=== PATIENT | female | born 1990 | race Hispanic/Latino ===

== ENCOUNTER 2021-01-17 13:00 | Inpatient (IN) | payer BC ==
[~2021-01-17] VITALS: Ht 157.5 cm; Wt 90.4 kg
[2021-01-17 13:54] LABS: BASOPHILS % 0.1 % (0.0-1.0); HEMATOCRIT 41.3 % (34.2-44.1); HEMOGLOBIN 13.8 g/dL (12.0-16.0); LYMPHOCYTES # (AUTO) 1.1 (1.0-3.2); LYMPHOCYTES % 14.1 % (18.0-39.1); MEAN CORPUSCULAR HEMOGLOBIN 30.3 pg (28-32); MEAN CORPUSCULAR HGB CONC 33.4 g/dL (31-35); MEAN CORPUSCULAR VOLUME 90.8 fL (81-99); MONOCYTES # (AUTO) 0.8 (0.2-0.8); MONOCYTES % 10.5 % (4.4-11.3); NEUTROPHILS # (AUTO) 5.6 (2.1-6.9); NEUTROPHILS % 74.8 % (38.7-80.0); PLATELET COUNT 287 x10e3/uL (140-360); RED BLOOD COUNT 4.55 x10e6/uL (3.6-5.1); RED CELL DISTRIBUTION WIDTH 12.3 % (11.7-14.4)
[2021-01-17] MEDS ORDERED: KETOROLAC TROMETHAMINE 30 MG/ML VIAL IV STA (13:54)
[2021-01-17] MEDS ORDERED: DEXAMETHASONE SOD PHOS 10 MG/1 ML VIAL IV ONE (14:00)
[2021-01-17] MEDS ORDERED: ONDANSETRON HCL INJ 2MG/ML 2ML 2 MG/ML VIAL IV STA (14:04)
[2021-01-17 14:13] LABS: ALBUMIN 3.6 g/dL (3.5-5.0); ALBUMIN/GLOBULIN RATIO 0.9 (0.8-2.0); ANION GAP 14.8 mmol/L (8-16); CALCIUM 9.4 mg/dL (8.4-10.2); CREATININE, SERUM 0.75 mg/dL (0.57-1.11); POTASSIUM 3.8 mmol/L (3.5-5.1)
[2021-01-17 17:13] VITALS: BP 99/64
[2021-01-17 17:21] VITALS: BP 99/64
[2021-01-17 17:26] VITALS: BP 99/64
[2021-01-17] MEDS: ASCORBIC ACID 500 MG TAB PO SCH (17:53)
[2021-01-17] MEDS: ENOXAPARIN SOD INJ 40 MG/0.4 ML SYR SC SCH (17:53)
[2021-01-17] MEDS ORDERED: REMDESIVIR 200MG 200 MG in SODIUM CHLORIDE 0.9% 100 ML 100 ML IV ONE (18:00)
[2021-01-17] MEDS ORDERED: SODIUM CHLORIDE 0.9% 250ML 250 ML ONE (18:00)
[2021-01-17 20:00] VITALS: BP 95/63
[2021-01-17] MEDS ORDERED: REMDESIVIR 200MG 200 MG IV ONE (20:00)
[2021-01-17] MEDS: GUAIFENESIN/CODEINE 10 ML CUP PO PRN (23:27)
[2021-01-18] VITALS (12 sets, daily range): BP systolic 93–124; BP diastolic 57–77
[2021-01-18] MEDS: ZINC SULFATE 220 MG CAP PO SCH (08:31)
[2021-01-18] MEDS: ASCORBIC ACID 500 MG TAB PO SCH ×2 (08:31→16:13)
[2021-01-18] MEDS: LORAZEPAM INJ 2 MG/ML VIAL IV PRN (12:20)
[2021-01-18] MEDS: REMDESIVIR 100MG 100 MG in SODIUM CHLORIDE 0.9% 100 ML 100 ML IV SCH (13:55)
[2021-01-18] MEDS: DEXAMETHASONE SOD PHOS 10 MG/1 ML VIAL IV SCH (13:55)
[2021-01-18] MEDS ORDERED: SODIUM CHLORIDE 0.9% 250ML 250 ML ONE (15:41)
[2021-01-18] MEDS: ENOXAPARIN SOD INJ 40 MG/0.4 ML SYR SC SCH (16:14)
[2021-01-18] MEDS: ACETAMINOPHEN 325 MG TAB PO PRN (17:09)
[2021-01-19] VITALS (24 sets, daily range): BP systolic 80–113; BP diastolic 54–77
[2021-01-19 05:27] LABS: BASOPHILS % 0.1 % (0.0-1.0); HEMOGLOBIN 12.8 g/dL (12.0-16.0); LYMPHOCYTES # (AUTO) 1.5 (1.0-3.2); LYMPHOCYTES % 19.3 % (18.0-39.1); MEAN CORPUSCULAR HEMOGLOBIN 30.8 pg (28-32); MEAN CORPUSCULAR HGB CONC 33.7 g/dL (31-35); MEAN CORPUSCULAR VOLUME 91.3 fL (81-99); MONOCYTES # (AUTO) 0.9 (0.2-0.8); MONOCYTES % 11.5 % (4.4-11.3); NEUTROPHILS # (AUTO) 5.4 (2.1-6.9); NEUTROPHILS % 68.7 % (38.7-80.0); PLATELET COUNT 356 x10e3/uL (140-360); RED BLOOD COUNT 4.16 x10e6/uL (3.6-5.1); RED CELL DISTRIBUTION WIDTH 12.3 % (11.7-14.4)
[2021-01-19 05:40] LABS: ALBUMIN/GLOBULIN RATIO 0.8 (0.8-2.0); ANION GAP 13.8 mmol/L (8-16); CALCIUM 8.6 mg/dL (8.4-10.2); CREATININE, SERUM 0.68 mg/dL (0.57-1.11); POTASSIUM 3.8 mmol/L (3.5-5.1)
[2021-01-19] MEDS: ASCORBIC ACID 500 MG TAB PO SCH ×2 (08:30→16:31)
[2021-01-19] MEDS: ZINC SULFATE 220 MG CAP PO SCH (08:30)
[2021-01-19] MEDS: DEXAMETHASONE SOD PHOS 10 MG/1 ML VIAL IV SCH (08:30)
[2021-01-19] MEDS: LORAZEPAM INJ 2 MG/ML VIAL IV PRN (08:30)
[2021-01-19] MEDS: GUAIFENESIN/CODEINE 10 ML CUP PO PRN ×2 (08:51→16:31)
[2021-01-19] MEDS ORDERED: GUAIFENESIN/CODEINE 10 ML CUP PO PRN (09:00)
[2021-01-19] MEDS: REMDESIVIR 100MG 100 MG in SODIUM CHLORIDE 0.9% 100 ML 100 ML IV SCH (14:58)
[2021-01-19] MEDS: ENOXAPARIN SOD INJ 40 MG/0.4 ML SYR SC SCH (16:31)
[2021-01-20] VITALS (25 sets, daily range): BP systolic 104–120; BP diastolic 56–89
[2021-01-20] MEDS: GUAIFENESIN/CODEINE 10 ML CUP PO PRN ×2 (00:27→23:21)
[2021-01-20 04:36] LABS: BASOPHILS % 0.1 % (0.0-1.0); HEMATOCRIT 39.1 % (34.2-44.1); HEMOGLOBIN 13.1 g/dL (12.0-16.0); LYMPHOCYTES # (AUTO) 1.6 (1.0-3.2); LYMPHOCYTES % 18.4 % (18.0-39.1); MEAN CORPUSCULAR HEMOGLOBIN 30.6 pg (28-32); MEAN CORPUSCULAR HGB CONC 33.5 g/dL (31-35); MEAN CORPUSCULAR VOLUME 91.4 fL (81-99); MONOCYTES # (AUTO) 1.2 (0.2-0.8); MONOCYTES % 13.8 % (4.4-11.3); NEUTROPHILS # (AUTO) 5.9 (2.1-6.9); NEUTROPHILS % 67.1 % (38.7-80.0); PLATELET COUNT 418 x10e3/uL (140-360); RED BLOOD COUNT 4.28 x10e6/uL (3.6-5.1); RED CELL DISTRIBUTION WIDTH 12.1 % (11.7-14.4)
[2021-01-20 05:01] LABS: ALBUMIN 3.1 g/dL (3.5-5.0); ALBUMIN/GLOBULIN RATIO 0.9 (0.8-2.0); ANION GAP 14.9 mmol/L (8-16); CALCIUM 8.7 mg/dL (8.4-10.2); CREATININE, SERUM 0.67 mg/dL (0.57-1.11); POTASSIUM 3.9 mmol/L (3.5-5.1)
[2021-01-20] MEDS: DEXAMETHASONE SOD PHOS 10 MG/1 ML VIAL IV SCH (09:24)
[2021-01-20] MEDS: ZINC SULFATE 220 MG CAP PO SCH (09:24)
[2021-01-20] MEDS: ASCORBIC ACID 500 MG TAB PO SCH ×2 (09:24→17:44)
[2021-01-20] MEDS: REMDESIVIR 100MG 100 MG in SODIUM CHLORIDE 0.9% 100 ML 100 ML IV SCH (14:35)
[2021-01-20] MEDS: ENOXAPARIN SOD INJ 40 MG/0.4 ML SYR SC SCH (17:44)
[2021-01-21] VITALS (27 sets, daily range): BP systolic 91–118; BP diastolic 54–75
[2021-01-21] MEDS ORDERED: SODIUM CHLORIDE 0.9% 1000ML 1,000 ML IV ONE (01:15)
[2021-01-21] MEDS ORDERED: SODIUM CHLORIDE 0.9% 1000ML 1,000 ML ONE (01:31)
[2021-01-21 05:28] LABS: BASOPHILS % 0.1 % (0.0-1.0); EOSINOPHILS % 0.1 % (0.0-6.0); HEMATOCRIT 39.8 % (34.2-44.1); HEMOGLOBIN 13.5 g/dL (12.0-16.0); LYMPHOCYTES # (AUTO) 1.9 (1.0-3.2); LYMPHOCYTES % 20.1 % (18.0-39.1); MEAN CORPUSCULAR HGB CONC 33.9 g/dL (31-35); MEAN CORPUSCULAR VOLUME 91.3 fL (81-99); MONOCYTES # (AUTO) 1.1 (0.2-0.8); NEUTROPHILS # (AUTO) 6.3 (2.1-6.9); NEUTROPHILS % 67.2 % (38.7-80.0); PLATELET COUNT 463 x10e3/uL (140-360); RED BLOOD COUNT 4.36 x10e6/uL (3.6-5.1); RED CELL DISTRIBUTION WIDTH 11.7 % (11.7-14.4)
[2021-01-21 05:49] LABS: ALBUMIN/GLOBULIN RATIO 0.8 (0.8-2.0); ANION GAP 14.9 mmol/L (8-16); CALCIUM 8.8 mg/dL (8.4-10.2); CREATININE, SERUM 0.64 mg/dL (0.57-1.11); POTASSIUM 3.9 mmol/L (3.5-5.1)
[2021-01-21] MEDS: ASCORBIC ACID 500 MG TAB PO SCH ×2 (09:28→17:01)
[2021-01-21] MEDS: ZINC SULFATE 220 MG CAP PO SCH (09:28)
[2021-01-21] MEDS: DEXAMETHASONE SOD PHOS 10 MG/1 ML VIAL IV SCH (09:28)
[2021-01-21] MEDS: LORAZEPAM INJ 2 MG/ML VIAL IV PRN (11:15)
[2021-01-21] MEDS: REMDESIVIR 100MG 100 MG in SODIUM CHLORIDE 0.9% 100 ML 100 ML IV SCH (13:56)
[2021-01-21] MEDS: ENOXAPARIN SOD INJ 40 MG/0.4 ML SYR SC SCH (17:01)
[2021-01-21] MEDS: DEXMEDETOMIDINE 200MCG/NS 50ML 50 ML IV SCH (17:30)
[2021-01-22] VITALS (25 sets, daily range): BP systolic 74–142; BP diastolic 45–72
[2021-01-22 04:59] LABS: BASOPHILS % 0.1 % (0.0-1.0); EOSINOPHILS # (AUTO) 0.1 (0.0-0.4); EOSINOPHILS % 0.3 % (0.0-6.0); HEMATOCRIT 40.4 % (34.2-44.1); HEMOGLOBIN 13.6 g/dL (12.0-16.0); LYMPHOCYTES # (AUTO) 2.2 (1.0-3.2); LYMPHOCYTES % 14.5 % (18.0-39.1); MEAN CORPUSCULAR HEMOGLOBIN 30.6 pg (28-32); MEAN CORPUSCULAR HGB CONC 33.7 g/dL (31-35); MONOCYTES # (AUTO) 1.6 (0.2-0.8); MONOCYTES % 10.5 % (4.4-11.3); NEUTROPHILS # (AUTO) 10.9 (2.1-6.9); NEUTROPHILS % 73.8 % (38.7-80.0); PLATELET COUNT 528 x10e3/uL (140-360); RED BLOOD COUNT 4.44 x10e6/uL (3.6-5.1); RED CELL DISTRIBUTION WIDTH 11.7 % (11.7-14.4)
[2021-01-22 05:13] LABS: ALBUMIN 3.4 g/dL (3.5-5.0); CALCIUM 8.5 mg/dL (8.4-10.2); CREATININE, SERUM 0.64 mg/dL (0.57-1.11)
[2021-01-22 05:27] LABS: ALBUMIN/GLOBULIN RATIO 1.1 (0.8-2.0)
[2021-01-22] MEDS: ASCORBIC ACID 500 MG TAB PO SCH ×2 (08:30→17:48)
[2021-01-22] MEDS: LORAZEPAM INJ 2 MG/ML VIAL IV PRN (08:30)
[2021-01-22] MEDS: ZINC SULFATE 220 MG CAP PO SCH (08:30)
[2021-01-22] MEDS: DEXAMETHASONE SOD PHOS 10 MG/1 ML VIAL IV SCH (08:30)
[2021-01-22] MEDS: DEXMEDETOMIDINE 200MCG/NS 50ML 50 ML IV SCH (17:15)
[2021-01-22] MEDS: ENOXAPARIN SOD INJ 40 MG/0.4 ML SYR SC SCH (17:48)
[2021-01-23] VITALS (26 sets, daily range): BP systolic 87–118; BP diastolic 52–75
[2021-01-23] MEDS: LORAZEPAM INJ 2 MG/ML VIAL IV PRN (00:06)
[2021-01-23] MEDS: GUAIFENESIN/CODEINE 5 ML LIQD PO PRN ×3 (00:06→16:47)
[2021-01-23 04:58] LABS: BASOPHILS % 0.2 % (0.0-1.0); EOSINOPHILS % 0.2 % (0.0-6.0); HEMATOCRIT 39.3 % (34.2-44.1); HEMOGLOBIN 13.1 g/dL (12.0-16.0); LYMPHOCYTES # (AUTO) 2.1 (1.0-3.2); LYMPHOCYTES % 11.3 % (18.0-39.1); MEAN CORPUSCULAR HEMOGLOBIN 29.7 pg (28-32); MEAN CORPUSCULAR HGB CONC 33.3 g/dL (31-35); MEAN CORPUSCULAR VOLUME 89.1 fL (81-99); MONOCYTES # (AUTO) 1.8 (0.2-0.8); PLATELET COUNT 526 x10e3/uL (140-360); RED BLOOD COUNT 4.41 x10e6/uL (3.6-5.1); RED CELL DISTRIBUTION WIDTH 11.4 % (11.7-14.4)
[2021-01-23 05:16] LABS: ALBUMIN 3.3 g/dL (3.5-5.0); ANION GAP 12.2 mmol/L (8-16); CALCIUM 8.6 mg/dL (8.4-10.2); CREATININE, SERUM 0.65 mg/dL (0.57-1.11); POTASSIUM 4.2 mmol/L (3.5-5.1)
[2021-01-23] MEDS: DEXAMETHASONE SOD PHOS 10 MG/1 ML VIAL IV SCH (10:42)
[2021-01-23] MEDS: ASCORBIC ACID 500 MG TAB PO SCH ×2 (10:42→16:42)
[2021-01-23] MEDS: ZINC SULFATE 220 MG CAP PO SCH (10:42)
[2021-01-23] MEDS ORDERED: LACTATED RINGER'S 500 ML INJ ONE (13:30)
[2021-01-23] MEDS: ENOXAPARIN SOD INJ 40 MG/0.4 ML SYR SC SCH (16:46)
[2021-01-23] MEDS: DEXMEDETOMIDINE 200MCG/NS 50ML 50 ML IV SCH (16:46)
[2021-01-24] VITALS (21 sets, daily range): BP systolic 99–136; BP diastolic 59–74
[2021-01-24 05:03] LABS: BASOPHILS % 0.2 % (0.0-1.0); EOSINOPHILS # (AUTO) 0.1 (0.0-0.4); EOSINOPHILS % 0.7 % (0.0-6.0); HEMATOCRIT 39.8 % (34.2-44.1); HEMOGLOBIN 13.4 g/dL (12.0-16.0); LYMPHOCYTES # (AUTO) 1.8 (1.0-3.2); LYMPHOCYTES % 9.4 % (18.0-39.1); MEAN CORPUSCULAR HEMOGLOBIN 30.2 pg (28-32); MEAN CORPUSCULAR HGB CONC 33.7 g/dL (31-35); MEAN CORPUSCULAR VOLUME 89.8 fL (81-99); MONOCYTES # (AUTO) 1.8 (0.2-0.8); MONOCYTES % 9.3 % (4.4-11.3); NEUTROPHILS # (AUTO) 15.2 (2.1-6.9); NEUTROPHILS % 79.2 % (38.7-80.0); PLATELET COUNT 510 x10e3/uL (140-360); RED BLOOD COUNT 4.43 x10e6/uL (3.6-5.1); RED CELL DISTRIBUTION WIDTH 11.6 % (11.7-14.4)
[2021-01-24 05:35] LABS: ALBUMIN 3.3 g/dL (3.5-5.0); CALCIUM 8.6 mg/dL (8.4-10.2); CREATININE, SERUM 0.63 mg/dL (0.57-1.11)
[2021-01-24] MEDS: DEXMEDETOMIDINE 200MCG/NS 50ML 50 ML IV SCH ×2 (05:44→16:41)
[2021-01-24] MEDS: GUAIFENESIN/CODEINE 5 ML LIQD PO PRN ×2 (05:45→10:05)
[2021-01-24] MEDS: ASCORBIC ACID 500 MG TAB PO SCH ×2 (07:50→16:06)
[2021-01-24] MEDS: DEXAMETHASONE SOD PHOS 10 MG/1 ML VIAL IV SCH (07:50)
[2021-01-24] MEDS: ZINC SULFATE 220 MG CAP PO SCH (07:50)
[2021-01-24] MEDS: ENOXAPARIN SOD INJ 40 MG/0.4 ML SYR SC SCH (16:06)
[2021-01-25] VITALS (13 sets, daily range): BP systolic 92–113; BP diastolic 56–78
[2021-01-25] MEDS: GUAIFENESIN/CODEINE 5 ML LIQD PO PRN ×3 (00:14→22:41)
[2021-01-25] MEDS: DEXMEDETOMIDINE 200MCG/NS 50ML 50 ML IV SCH (00:14)
[2021-01-25] MEDS: LORAZEPAM INJ 2 MG/ML VIAL IV PRN (00:14)
[2021-01-25] MEDS: ASCORBIC ACID 500 MG TAB PO SCH ×2 (10:08→18:17)
[2021-01-25] MEDS: ZINC SULFATE 220 MG CAP PO SCH (10:08)
[2021-01-25] MEDS: DEXAMETHASONE SOD PHOS 10 MG/1 ML VIAL IV SCH (10:12)
[2021-01-25] MEDS: DEXMEDETOMIDINE 400MCG/NS100ML 100 ML IV SCH (14:45)
[2021-01-25] MEDS: ENOXAPARIN SOD INJ 40 MG/0.4 ML SYR SC SCH (18:18)
[2021-01-26] VITALS (9 sets, daily range): BP systolic 92–125; BP diastolic 50–73
[2021-01-26] MEDS: GUAIFENESIN/CODEINE 5 ML LIQD PO PRN ×4 (05:45→22:44)
[2021-01-26 06:20] LABS: BASOPHILS % 0.2 % (0.0-1.0); EOSINOPHILS # (AUTO) 0.1 (0.0-0.4); EOSINOPHILS % 0.4 % (0.0-6.0); HEMATOCRIT 39.3 % (34.2-44.1); HEMOGLOBIN 13.3 g/dL (12.0-16.0); LYMPHOCYTES # (AUTO) 2.4 (1.0-3.2); LYMPHOCYTES % 10.6 % (18.0-39.1); MEAN CORPUSCULAR HEMOGLOBIN 30.4 pg (28-32); MEAN CORPUSCULAR HGB CONC 33.8 g/dL (31-35); MEAN CORPUSCULAR VOLUME 89.7 fL (81-99); MONOCYTES # (AUTO) 2.1 (0.2-0.8); MONOCYTES % 9.3 % (4.4-11.3); NEUTROPHILS # (AUTO) 17.3 (2.1-6.9); NEUTROPHILS % 77.8 % (38.7-80.0); PLATELET COUNT 491 x10e3/uL (140-360); RED BLOOD COUNT 4.38 x10e6/uL (3.6-5.1); RED CELL DISTRIBUTION WIDTH 11.8 % (11.7-14.4)
[2021-01-26 06:51] LABS: ALBUMIN 3.2 g/dL (3.5-5.0); ANION GAP 14.1 mmol/L (8-16); CALCIUM 8.7 mg/dL (8.4-10.2); CREATININE, SERUM 0.59 mg/dL (0.57-1.11); POTASSIUM 4.1 mmol/L (3.5-5.1)
[2021-01-26] MEDS: ZINC SULFATE 220 MG CAP PO SCH (09:09)
[2021-01-26] MEDS: ASCORBIC ACID 500 MG TAB PO SCH ×2 (09:09→18:05)
[2021-01-26] MEDS: DEXAMETHASONE SOD PHOS 10 MG/1 ML VIAL IV SCH (09:09)
[2021-01-26] MEDS: LORAZEPAM 0.5 MG TAB PO PRN ×2 (12:59→22:44)
[2021-01-26] MEDS: DEXMEDETOMIDINE 400MCG/NS100ML 100 ML IV SCH (17:19)
[2021-01-26] MEDS: ENOXAPARIN SOD INJ 40 MG/0.4 ML SYR SC SCH (18:05)
[2021-01-27] VITALS (8 sets, daily range): BP systolic 94–116; BP diastolic 59–74
[2021-01-27] MEDS: DEXAMETHASONE SOD PHOS 10 MG/1 ML VIAL IV SCH (08:10)
[2021-01-27] MEDS: ASCORBIC ACID 500 MG TAB PO SCH ×2 (08:10→16:30)
[2021-01-27] MEDS: ZINC SULFATE 220 MG CAP PO SCH (08:10)
[2021-01-27] MEDS: GUAIFENESIN/CODEINE 5 ML LIQD PO PRN ×3 (08:20→21:57)
[2021-01-27] MEDS: ACETAMINOPHEN 325 MG TAB PO PRN (09:08)
[2021-01-27] MEDS ORDERED: SODIUM CHLORIDE 0.9% 250ML 250 ML ONE (16:09)
[2021-01-27] MEDS: ENOXAPARIN SOD INJ 40 MG/0.4 ML SYR SC SCH (16:30)
[2021-01-27] MEDS: DEXMEDETOMIDINE 400MCG/NS100ML 100 ML IV SCH (19:49)
[2021-01-27] MEDS: LORAZEPAM 0.5 MG TAB PO PRN (21:57)
[2021-01-28] VITALS (8 sets, daily range): BP systolic 92–107; BP diastolic 53–63
[2021-01-28] MEDS: GUAIFENESIN/CODEINE 5 ML LIQD PO PRN ×5 (03:11→21:46)
[2021-01-28 06:34] LABS: BASOPHILS # (AUTO) 0.1 (0.0-0.1); BASOPHILS % 0.3 % (0.0-1.0); EOSINOPHILS # (AUTO) 0.1 (0.0-0.4); EOSINOPHILS % 0.4 % (0.0-6.0); HEMATOCRIT 37.8 % (34.2-44.1); HEMOGLOBIN 12.3 g/dL (12.0-16.0); LYMPHOCYTES # (AUTO) 2.5 (1.0-3.2); LYMPHOCYTES % 9.7 % (18.0-39.1); MEAN CORPUSCULAR HEMOGLOBIN 29.8 pg (28-32); MEAN CORPUSCULAR HGB CONC 32.5 g/dL (31-35); MEAN CORPUSCULAR VOLUME 91.5 fL (81-99); MONOCYTES # (AUTO) 2.3 (0.2-0.8); MONOCYTES % 8.8 % (4.4-11.3); NEUTROPHILS # (AUTO) 20.7 (2.1-6.9); NEUTROPHILS % 79.3 % (38.7-80.0); PLATELET COUNT 390 x10e3/uL (140-360); RED BLOOD COUNT 4.13 x10e6/uL (3.6-5.1); RED CELL DISTRIBUTION WIDTH 11.9 % (11.7-14.4)
[2021-01-28 07:07] LABS: ANION GAP 15.1 mmol/L (8-16); CALCIUM 8.5 mg/dL (8.4-10.2); CREATININE, SERUM 0.48 mg/dL (0.57-1.11); POTASSIUM 4.1 mmol/L (3.5-5.1)
[2021-01-28] MEDS: LORAZEPAM 0.5 MG TAB PO PRN ×2 (07:30→16:54)
[2021-01-28] MEDS: ACETAMINOPHEN 325 MG TAB PO PRN ×3 (07:31→20:57)
[2021-01-28 07:58] LABS: LYMPHOCYTES % (MANUAL) 8 % (19-48); MONOCYTES % (MANUAL) 7 % (3.4-9.0); NEUTROPHILS % (MANUAL) 85 % (40-74)
[2021-01-28 07:59] LABS: PLATELET ESTIMATE ADEQUATE; PLATELET MORPHOLOGY COMMENT NORMAL; RBC MORPHOLOGY COMMENT NORMAL
[2021-01-28] MEDS ORDERED: SODIUM CHLORIDE 0.9% 50ML 50 ML ONE (09:06)
[2021-01-28] MEDS ORDERED: PIPERACILLIN/TAZOBACTAM 3.375 GM VIAL ONE (09:06)
[2021-01-28] MEDS: PIPERACILLIN/TAZOBACTAM 3.375 GM in SODIUM CHLORIDE 0.9% 50ML 50 ML IV SCH ×2 (09:13→17:00)
[2021-01-28] MEDS: ZINC SULFATE 220 MG CAP PO SCH (09:13)
[2021-01-28] MEDS: ASCORBIC ACID 500 MG TAB PO SCH ×2 (09:13→16:53)
[2021-01-28] MEDS: DEXMEDETOMIDINE 400MCG/NS100ML 100 ML IV SCH (12:30)
[2021-01-28] MEDS ORDERED: ENOXAPARIN SOD INJ 40 MG/0.4 ML SYR SC SCH (17:00)
[2021-01-28] MEDS: TRAMADOL/APAP 37.5MG-325MG TAB PO PRN (17:13)
[2021-01-29] VITALS (13 sets, daily range): BP systolic 81–115; BP diastolic 50–74
[2021-01-29] MEDS: DEXMEDETOMIDINE 400MCG/NS100ML 100 ML IV SCH (00:34)
[2021-01-29] MEDS: TRAMADOL/APAP 37.5MG-325MG TAB PO PRN (00:52)
[2021-01-29] MEDS: LORAZEPAM 0.5 MG TAB PO PRN ×2 (00:53→09:00)
[2021-01-29] MEDS: PIPERACILLIN/TAZOBACTAM 3.375 GM in SODIUM CHLORIDE 0.9% 50ML 50 ML IV SCH ×2 (00:53→09:36)
[2021-01-29] MEDS: GUAIFENESIN/CODEINE 5 ML LIQD PO PRN ×3 (01:45→09:36)
[2021-01-29 04:38] LABS: BASOPHILS # (AUTO) 0.1 (0.0-0.1); BASOPHILS % 0.2 % (0.0-1.0); EOSINOPHILS # (AUTO) 0.3 (0.0-0.4); EOSINOPHILS % 1.2 % (0.0-6.0); HEMATOCRIT 35.4 % (34.2-44.1); HEMOGLOBIN 11.8 g/dL (12.0-16.0); LYMPHOCYTES # (AUTO) 2.4 (1.0-3.2); LYMPHOCYTES % 9.9 % (18.0-39.1); MEAN CORPUSCULAR HEMOGLOBIN 30.8 pg (28-32); MEAN CORPUSCULAR HGB CONC 33.3 g/dL (31-35); MEAN CORPUSCULAR VOLUME 92.4 fL (81-99); MONOCYTES # (AUTO) 2.3 (0.2-0.8); MONOCYTES % 9.7 % (4.4-11.3); NEUTROPHILS # (AUTO) 18.8 (2.1-6.9); PLATELET COUNT 293 x10e3/uL (140-360); RED BLOOD COUNT 3.83 x10e6/uL (3.6-5.1); RED CELL DISTRIBUTION WIDTH 12.5 % (11.7-14.4)
[2021-01-29 04:57] LABS: ALBUMIN 2.8 g/dL (3.5-5.0); ALBUMIN/GLOBULIN RATIO 0.9 (0.8-2.0); ANION GAP 15.3 mmol/L (8-16); CALCIUM 8.5 mg/dL (8.4-10.2); CREATININE, SERUM 0.62 mg/dL (0.57-1.11); POTASSIUM 4.3 mmol/L (3.5-5.1)
[2021-01-29] MEDS: ACETAMINOPHEN 325 MG TAB PO PRN (05:36)
[2021-01-29] MEDS: ASCORBIC ACID 500 MG TAB PO SCH ×2 (09:36→15:39)
[2021-01-29] MEDS: ZINC SULFATE 220 MG CAP PO SCH (09:36)
[2021-01-29] MEDS: Vancomycin IV 1 GM in SODIUM CHLORIDE 0.9% 250ML 250 ML IV SCH ×2 (10:45→23:38)
[2021-01-29] MEDS ORDERED: ROCURONIUM BROMIDE 1,250 MG in SODIUM CHLORIDE 0.9% 250ML 125 ML IV SCH (11:00)
[2021-01-29] MEDS: FENTANYL 2000MCG/NS 250 250 ML IV SCH ×3 (11:47→23:55)
[2021-01-29] MEDS: MIDAZOLAM HCL 5MG/ML 10ML VIAL 100 ML IV PRN ×3 (11:48→20:49)
[2021-01-29] MEDS: ROCURONIUM 1250MG/NS 250 250 ML IV SCH (11:48)
[2021-01-29] MEDS: NOREPINEPHRINE 8 MG/D5W 250 ML 250 ML IV SCH ×2 (12:00→20:30)
[2021-01-29] MEDS ORDERED: WATER STERILE 10 ML VIAL ONE (12:58)
[2021-01-29] MEDS ORDERED: SUCCINYLCHOLINE CHLORIDE 20 MG/ML 10ML VIAL ONE (12:58)
[2021-01-29] MEDS ORDERED: VECURONIUM BROMIDE FOR INJ 20 MG VIAL ONE (12:58)
[2021-01-29] MEDS ORDERED: ETOMIDATE 2 MG/ML 10 ML INJ IV ONE (12:58)
[2021-01-29] MEDS ORDERED: MIDAZOLAM HCL 2 MG/2 ML VIAL ONE (12:58)
[2021-01-29 13:49] LABS: ABG HCO3 28 mmol/L (22-26); ABG PCO2 40 mmHg (35-45); ABG PH 7.46 (7.35-7.45); ABG PO2 114 mmHg (80-105); ABG TCO2 29
[2021-01-29] MEDS: CEFEPIME 1 GM in SODIUM CHLORIDE 0.9% 50ML 50 ML IV SCH ×2 (15:41→21:25)
[2021-01-29] MEDS ORDERED: ACETAMINOPHEN 1000 MG/100 ML IV NR (20:00)
[2021-01-29] MEDS: ENOXAPARIN SOD INJ 60 MG/0.6 ML SYR SC SCH (20:59)
[2021-01-29] MEDS ORDERED: SODIUM CHLORIDE 0.9% 250ML 250 ML ONE (23:16)
[2021-01-30] VITALS (22 sets, daily range): BP systolic 93–145; BP diastolic 22–74
[2021-01-30] MEDS: MIDAZOLAM HCL 5MG/ML 10ML VIAL 100 ML IV PRN ×4 (02:20→19:27)
[2021-01-30] MEDS: ACETAMINOPHEN 325 MG TAB PO PRN (02:35)
[2021-01-30 05:51] LABS: BASOPHILS # (AUTO) 0.1 (0.0-0.1); BASOPHILS % 0.3 % (0.0-1.0); EOSINOPHILS # (AUTO) 0.3 (0.0-0.4); EOSINOPHILS % 1.2 % (0.0-6.0); HEMATOCRIT 33.8 % (34.2-44.1); HEMOGLOBIN 10.9 g/dL (12.0-16.0); LYMPHOCYTES % 8.4 % (18.0-39.1); MEAN CORPUSCULAR HEMOGLOBIN 30.2 pg (28-32); MEAN CORPUSCULAR HGB CONC 32.2 g/dL (31-35); MEAN CORPUSCULAR VOLUME 93.6 fL (81-99); MONOCYTES # (AUTO) 2.4 (0.2-0.8); MONOCYTES % 9.9 % (4.4-11.3); NEUTROPHILS # (AUTO) 18.8 (2.1-6.9); NEUTROPHILS % 78.9 % (38.7-80.0); PLATELET COUNT 229 x10e3/uL (140-360); RED BLOOD COUNT 3.61 x10e6/uL (3.6-5.1); RED CELL DISTRIBUTION WIDTH 12.5 % (11.7-14.4)
[2021-01-30] MEDS: CEFEPIME 1 GM in SODIUM CHLORIDE 0.9% 50ML 50 ML IV SCH ×3 (06:11→21:43)
[2021-01-30 06:12] LABS: ALBUMIN 2.7 g/dL (3.5-5.0); ALBUMIN/GLOBULIN RATIO 0.8 (0.8-2.0); ANION GAP 14.8 mmol/L (8-16); CALCIUM 8.3 mg/dL (8.4-10.2); CREATININE, SERUM 0.58 mg/dL (0.57-1.11); POTASSIUM 3.8 mmol/L (3.5-5.1)
[2021-01-30] MEDS: FENTANYL 2000MCG/NS 250 250 ML IV SCH ×2 (07:00→13:49)
[2021-01-30] MEDS: ENOXAPARIN SOD INJ 60 MG/0.6 ML SYR SC SCH ×2 (09:20→21:09)
[2021-01-30] MEDS: ZINC SULFATE 220 MG CAP PO SCH (09:20)
[2021-01-30] MEDS: ASCORBIC ACID 500 MG TAB PO SCH ×2 (09:20→16:51)
[2021-01-30] MEDS: Vancomycin IV 1 GM in SODIUM CHLORIDE 0.9% 250ML 250 ML IV SCH ×2 (09:52→23:30)
[2021-01-30 10:19] LABS: ABG HCO3 21 mmol/L (22-26); ABG PCO2 27 mmHg (35-45); ABG PO2 126 mmHg (80-105); ABG TCO2 22
[2021-01-30] MEDS: ROCURONIUM 1250MG/NS 250 250 ML IV SCH ×2 (11:15→16:16)
[2021-01-30] MEDS ORDERED: SODIUM CHLORIDE 0.9% 1000ML 1,000 ML ONE (11:21)
[2021-01-30 12:45] LABS: ABG PCO2 35 mmHg (35-45); ABG PH 7.43 (7.35-7.45); ABG PO2 86 mmHg (80-105)
[2021-01-30 12:46] LABS: ABG HCO3 23 mmol/L (22-26); ABG TCO2 24
[2021-01-30 13:45] LABS: EOSINOPHILS % (MANUAL) 1 % (0-7); LYMPHOCYTES % (MANUAL) 10 % (19-48); MONOCYTES % (MANUAL) 8 % (3.4-9.0); NEUTROPHILS % (MANUAL) 79 % (40-74); PLATELET ESTIMATE ADEQUATE; PLATELET MORPHOLOGY COMMENT NORMAL; RBC MORPHOLOGY COMMENT NORMAL
[2021-01-31] VITALS (22 sets, daily range): BP systolic 88–123; BP diastolic 58–81
[2021-01-31] MEDS ORDERED: SODIUM CHLORIDE 0.9% 250ML 250 ML ONE
[2021-01-31] MEDS: FENTANYL 2000MCG/NS 250 250 ML IV SCH ×3 (03:00→17:54)
[2021-01-31] MEDS: MIDAZOLAM HCL 5MG/ML 10ML VIAL 100 ML IV PRN ×3 (04:53→17:55)
[2021-01-31] MEDS: CEFEPIME 1 GM in SODIUM CHLORIDE 0.9% 50ML 50 ML IV SCH ×3 (06:13→21:06)
[2021-01-31 06:49] LABS: BASOPHILS # (AUTO) 0.1 (0.0-0.1); BASOPHILS % 0.3 % (0.0-1.0); EOSINOPHILS # (AUTO) 0.1 (0.0-0.4); EOSINOPHILS % 0.3 % (0.0-6.0); HEMATOCRIT 33.5 % (34.2-44.1); HEMOGLOBIN 10.8 g/dL (12.0-16.0); LYMPHOCYTES # (AUTO) 1.3 (1.0-3.2); LYMPHOCYTES % 5.8 % (18.0-39.1); MEAN CORPUSCULAR HEMOGLOBIN 30.5 pg (28-32); MEAN CORPUSCULAR HGB CONC 32.2 g/dL (31-35); MEAN CORPUSCULAR VOLUME 94.6 fL (81-99); MONOCYTES # (AUTO) 2.1 (0.2-0.8); MONOCYTES % 9.1 % (4.4-11.3); NEUTROPHILS # (AUTO) 19.2 (2.1-6.9); NEUTROPHILS % 83.5 % (38.7-80.0); PLATELET COUNT 233 x10e3/uL (140-360); RED BLOOD COUNT 3.54 x10e6/uL (3.6-5.1); RED CELL DISTRIBUTION WIDTH 12.7 % (11.7-14.4)
[2021-01-31 07:22] LABS: ALBUMIN 1.8 g/dL (3.5-5.0); ALBUMIN/GLOBULIN RATIO 0.4 (0.8-2.0); ANION GAP 15.5 mmol/L (8-16); CALCIUM 8.5 mg/dL (8.4-10.2); CREATININE, SERUM 0.44 mg/dL (0.57-1.11); POTASSIUM 4.5 mmol/L (3.5-5.1)
[2021-01-31] MEDS ORDERED: PROPOFOL IV EMULSION 10MG/ML 100 ML IV SCH (08:30)
[2021-01-31] MEDS: ENOXAPARIN SOD INJ 60 MG/0.6 ML SYR SC SCH (09:07)
[2021-01-31] MEDS: ROCURONIUM 1250MG/NS 250 250 ML IV SCH (09:07)
[2021-01-31] MEDS: ASCORBIC ACID 500 MG TAB PO SCH ×2 (09:07→17:17)
[2021-01-31] MEDS: ZINC SULFATE 220 MG CAP PO SCH (09:07)
[2021-01-31 09:16] LABS: ABG PH 7.25 (7.35-7.45)
[2021-01-31 09:17] LABS: ABG HCO3 28 mmol/L (22-26); ABG PCO2 64 mmHg (35-45); ABG PO2 62 mmHg (80-105); ABG TCO2 30
[2021-01-31] MEDS: Vancomycin IV 1 GM in SODIUM CHLORIDE 0.9% 250ML 250 ML IV SCH ×2 (09:48→23:00)
[2021-01-31] MEDS: PROPOFOL IV EMULSION 50 ML IV SCH ×2 (09:48→17:55)
[2021-01-31] MEDS: NOREPINEPHRINE 8 MG/D5W 250 ML 250 ML IV SCH (10:22)
[2021-01-31] MEDS: ACETAMINOPHEN 325 MG TAB PO PRN (11:35)
[2021-01-31] MEDS ORDERED: IOPAMIDOL 370 MG/ML 200 ML INFUS..BTL INJ ONE (12:00)
[2021-01-31] MEDS ORDERED: SODIUM CHLORIDE 0.9% 50ML 50 ML ONE (12:00)
[2021-01-31] MEDS ORDERED: ENOXAPARIN SOD INJ 60 MG/0.6 ML SYR SC SCH (21:00)
[2021-01-31] MEDS: ENOXAPARIN SODIUM INJ 100 MG/ML SYR SC SCH (21:05)
[2021-02-01] VITALS (25 sets, daily range): BP systolic 95–114; BP diastolic 63–80
[2021-02-01] MEDS: CEFEPIME 1 GM in SODIUM CHLORIDE 0.9% 50ML 50 ML IV SCH ×3 (06:00→22:05)
[2021-02-01 06:38] LABS: BASOPHILS % 0.2 % (0.0-1.0); EOSINOPHILS # (AUTO) 0.3 (0.0-0.4); EOSINOPHILS % 2.2 % (0.0-6.0); HEMATOCRIT 27.6 % (34.2-44.1); HEMOGLOBIN 8.9 g/dL (12.0-16.0); LYMPHOCYTES # (AUTO) 1.8 (1.0-3.2); LYMPHOCYTES % 12.3 % (18.0-39.1); MEAN CORPUSCULAR HEMOGLOBIN 30.3 pg (28-32); MEAN CORPUSCULAR HGB CONC 32.2 g/dL (31-35); MEAN CORPUSCULAR VOLUME 93.9 fL (81-99); MONOCYTES # (AUTO) 1.5 (0.2-0.8); MONOCYTES % 10.5 % (4.4-11.3); NEUTROPHILS # (AUTO) 10.8 (2.1-6.9); NEUTROPHILS % 73.7 % (38.7-80.0); PLATELET COUNT 213 x10e3/uL (140-360); RED BLOOD COUNT 2.94 x10e6/uL (3.6-5.1); RED CELL DISTRIBUTION WIDTH 12.6 % (11.7-14.4)
[2021-02-01 07:24] LABS: ALBUMIN 1.4 g/dL (3.5-5.0); ALBUMIN/GLOBULIN RATIO 0.4 (0.8-2.0); CALCIUM 7.1 mg/dL (8.4-10.2); CREATININE, SERUM 0.38 mg/dL (0.57-1.11)
[2021-02-01 09:13] LABS: ABG HCO3 24 mmol/L (22-26); ABG PCO2 38 mmHg (35-45); ABG PO2 90 mmHg (80-105); ABG TCO2 25
[2021-02-01] MEDS ORDERED: FUROSEMIDE INJ 10 MG/ML 4 ML VIAL IV ONE (09:30)
[2021-02-01] MEDS: ZINC SULFATE 220 MG CAP PO SCH (09:41)
[2021-02-01] MEDS: ENOXAPARIN SODIUM INJ 100 MG/ML SYR SC SCH ×2 (09:41→22:04)
[2021-02-01] MEDS: ASCORBIC ACID 500 MG TAB PO SCH ×2 (09:41→17:09)
[2021-02-01] MEDS: Vancomycin IV 1 GM in SODIUM CHLORIDE 0.9% 250ML 250 ML IV SCH (11:13)
[2021-02-01] MEDS: ROCURONIUM 1250MG/NS 250 250 ML IV SCH (13:50)
[2021-02-01] MEDS: FENTANYL 2000MCG/NS 250 250 ML IV SCH (14:52)
[2021-02-01] MEDS: MIDAZOLAM HCL 5MG/ML 10ML VIAL 100 ML IV PRN ×2 (14:53→18:47)
[2021-02-02] VITALS (25 sets, daily range): BP systolic 95–120; BP diastolic 63–77
[2021-02-02] MEDS: Vancomycin IV 1 GM in SODIUM CHLORIDE 0.9% 250ML 250 ML IV SCH (00:22)
[2021-02-02] MEDS: CEFEPIME 1 GM in SODIUM CHLORIDE 0.9% 50ML 50 ML IV SCH (06:10)
[2021-02-02 06:37] LABS: BASOPHILS % 0.4 % (0.0-1.0); EOSINOPHILS # (AUTO) 0.3 (0.0-0.4); EOSINOPHILS % 2.5 % (0.0-6.0); HEMATOCRIT 28.1 % (34.2-44.1); HEMOGLOBIN 9.1 g/dL (12.0-16.0); LYMPHOCYTES # (AUTO) 1.3 (1.0-3.2); LYMPHOCYTES % 12.4 % (18.0-39.1); MEAN CORPUSCULAR HEMOGLOBIN 30.2 pg (28-32); MEAN CORPUSCULAR HGB CONC 32.4 g/dL (31-35); MEAN CORPUSCULAR VOLUME 93.4 fL (81-99); MONOCYTES # (AUTO) 1.4 (0.2-0.8); MONOCYTES % 13.3 % (4.4-11.3); NEUTROPHILS # (AUTO) 7.4 (2.1-6.9); NEUTROPHILS % 70.2 % (38.7-80.0); PLATELET COUNT 242 x10e3/uL (140-360); RED BLOOD COUNT 3.01 x10e6/uL (3.6-5.1); RED CELL DISTRIBUTION WIDTH 12.6 % (11.7-14.4)
[2021-02-02 07:14] LABS: ALBUMIN 1.6 g/dL (3.5-5.0); ALBUMIN/GLOBULIN RATIO 0.4 (0.8-2.0); CALCIUM 8.1 mg/dL (8.4-10.2); CREATININE, SERUM 0.43 mg/dL (0.57-1.11)
[2021-02-02] MEDS: ENOXAPARIN SODIUM INJ 100 MG/ML SYR SC SCH ×2 (09:07→20:56)
[2021-02-02] MEDS: ZINC SULFATE 220 MG CAP PO SCH (09:07)
[2021-02-02] MEDS: ASCORBIC ACID 500 MG TAB PO SCH ×2 (09:07→17:30)
[2021-02-02 09:44] LABS: ABG HCO3 30 mmol/L (22-26); ABG PCO2 47 mmHg (35-45); ABG PH 7.41 (7.35-7.45); ABG PO2 86 mmHg (80-105); ABG TCO2 31
[2021-02-02] MEDS: FENTANYL 2000MCG/NS 250 250 ML IV SCH ×2 (11:33→16:48)
[2021-02-02] MEDS: MIDAZOLAM HCL 5MG/ML 10ML VIAL 100 ML IV PRN ×3 (11:35→22:04)
[2021-02-02] MEDS: PROPOFOL IV EMULSION 50 ML IV SCH ×2 (14:37→23:44)
[2021-02-02] MEDS ORDERED: ALTEPLASE RECOMBINANT 2 MG/2 ML VIAL IV PRN (14:45)
[2021-02-02] MEDS: ROCURONIUM 1250MG/NS 250 250 ML IV SCH (17:30)
[2021-02-03] VITALS (26 sets, daily range): BP systolic 98–118; BP diastolic 59–91
[2021-02-03] MEDS: FENTANYL 2000MCG/NS 250 250 ML IV SCH ×4 (01:43→23:25)
[2021-02-03] MEDS: MIDAZOLAM HCL 5MG/ML 10ML VIAL 100 ML IV PRN ×4 (03:29→19:44)
[2021-02-03] MEDS: PROPOFOL IV EMULSION 50 ML IV SCH ×3 (04:12→20:20)
[2021-02-03 06:20] LABS: BASOPHILS % 0.3 % (0.0-1.0); EOSINOPHILS # (AUTO) 0.3 (0.0-0.4); EOSINOPHILS % 3.1 % (0.0-6.0); HEMATOCRIT 27.8 % (34.2-44.1); HEMOGLOBIN 8.8 g/dL (12.0-16.0); LYMPHOCYTES # (AUTO) 1.5 (1.0-3.2); LYMPHOCYTES % 15.2 % (18.0-39.1); MEAN CORPUSCULAR HEMOGLOBIN 30.1 pg (28-32); MEAN CORPUSCULAR HGB CONC 31.7 g/dL (31-35); MEAN CORPUSCULAR VOLUME 95.2 fL (81-99); MONOCYTES # (AUTO) 1.4 (0.2-0.8); MONOCYTES % 14.2 % (4.4-11.3); NEUTROPHILS # (AUTO) 6.6 (2.1-6.9); NEUTROPHILS % 65.4 % (38.7-80.0); PLATELET COUNT 239 x10e3/uL (140-360); RED BLOOD COUNT 2.92 x10e6/uL (3.6-5.1); RED CELL DISTRIBUTION WIDTH 12.9 % (11.7-14.4)
[2021-02-03 06:58] LABS: ALBUMIN 1.6 g/dL (3.5-5.0); ALBUMIN/GLOBULIN RATIO 0.4 (0.8-2.0); ANION GAP 11.3 mmol/L (8-16); CALCIUM 8.2 mg/dL (8.4-10.2); CREATININE, SERUM 0.43 mg/dL (0.57-1.11); POTASSIUM 4.3 mmol/L (3.5-5.1)
[2021-02-03 09:12] LABS: ABG HCO3 32 mmol/L (22-26); ABG PCO2 60 mmHg (35-45); ABG PH 7.34 (7.35-7.45); ABG PO2 63 mmHg (80-105); ABG TCO2 34
[2021-02-03] MEDS: ASCORBIC ACID 500 MG TAB PO SCH ×2 (09:30→17:30)
[2021-02-03] MEDS: ENOXAPARIN SODIUM INJ 100 MG/ML SYR SC SCH ×2 (09:30→20:28)
[2021-02-03] MEDS: ZINC SULFATE 220 MG CAP PO SCH (09:30)
[2021-02-03] MEDS: FUROSEMIDE INJ 10 MG/ML 4 ML VIAL IV SCH ×2 (11:45→21:05)
[2021-02-03] MEDS: ALBUMIN 25% 12.5GM 0.25 GM/ML BTL IV SCH ×3 (11:45→21:05)
[2021-02-03] MEDS: ROCURONIUM 1250MG/NS 250 250 ML IV SCH (14:53)
[2021-02-03] MEDS ORDERED: CITRATE OF MAGNESIA 300ML BOTTLE PO ONE (19:15)
[2021-02-04] VITALS (25 sets, daily range): BP systolic 93–118; BP diastolic 57–81
[2021-02-04] MEDS: MIDAZOLAM HCL 5MG/ML 10ML VIAL 100 ML IV PRN ×4 (01:19→22:54)
[2021-02-04] MEDS: PROPOFOL IV EMULSION 50 ML IV SCH ×3 (03:28→17:35)
[2021-02-04] MEDS: FENTANYL 2000MCG/NS 250 250 ML IV SCH ×3 (06:16→20:01)
[2021-02-04 06:17] LABS: BASOPHILS # (AUTO) 0.1 (0.0-0.1); BASOPHILS % 0.5 % (0.0-1.0); EOSINOPHILS # (AUTO) 0.3 (0.0-0.4); EOSINOPHILS % 3.1 % (0.0-6.0); HEMATOCRIT 26.1 % (34.2-44.1); HEMOGLOBIN 8.2 g/dL (12.0-16.0); LYMPHOCYTES # (AUTO) 1.2 (1.0-3.2); LYMPHOCYTES % 12.9 % (18.0-39.1); MEAN CORPUSCULAR HEMOGLOBIN 30.1 pg (28-32); MEAN CORPUSCULAR HGB CONC 31.4 g/dL (31-35); MONOCYTES # (AUTO) 1.4 (0.2-0.8); MONOCYTES % 14.8 % (4.4-11.3); NEUTROPHILS # (AUTO) 6.4 (2.1-6.9); NEUTROPHILS % 66.6 % (38.7-80.0); PLATELET COUNT 222 x10e3/uL (140-360); RED BLOOD COUNT 2.72 x10e6/uL (3.6-5.1)
[2021-02-04 06:38] LABS: ALBUMIN 2.5 g/dL (3.5-5.0); ALBUMIN/GLOBULIN RATIO 0.7 (0.8-2.0); ANION GAP 13.3 mmol/L (8-16); CALCIUM 8.5 mg/dL (8.4-10.2); CREATININE, SERUM 0.5 mg/dL (0.57-1.11); POTASSIUM 3.3 mmol/L (3.5-5.1)
[2021-02-04] MEDS ORDERED: POTASSIUM CHLORIDE 20MEQ/100ML 200 ML IV ONE (08:45)
[2021-02-04 08:55] LABS: ABG PH 7.38 (7.35-7.45)
[2021-02-04 08:56] LABS: ABG HCO3 44 mmol/L (22-26); ABG PCO2 74 mmHg (35-45); ABG PO2 59 mmHg (80-105)
[2021-02-04 08:58] LABS: ABG TCO2 46
[2021-02-04] MEDS ORDERED: ALBUMIN 25% 25GM 100ML 0.25 GM/ML BTL IV SCH (09:00)
[2021-02-04] MEDS: ENOXAPARIN SODIUM INJ 100 MG/ML SYR SC SCH ×2 (10:39→21:24)
[2021-02-04] MEDS: ALBUMIN 25% 12.5GM 50ML 100 ML IV SCH ×2 (10:39→17:43)
[2021-02-04] MEDS: ZINC SULFATE 220 MG CAP PO SCH (10:39)
[2021-02-04] MEDS: ASCORBIC ACID 500 MG TAB PO SCH ×2 (10:39→17:43)
[2021-02-04] MEDS: FUROSEMIDE INJ 100 MG in SODIUM CHLORIDE 0.9% 100 ML 90 ML IV SCH (10:50)
[2021-02-04] MEDS ORDERED: FUROSEMIDE INJ 10 MG/ML 4 ML VIAL IV ONE (13:30)
[2021-02-04] MEDS: ROCURONIUM 1250MG/NS 250 250 ML IV SCH ×2 (17:34→21:24)
[2021-02-05] VITALS (31 sets, daily range): BP systolic 93–136; BP diastolic 54–98
[2021-02-05] MEDS: ALBUMIN 25% 12.5GM 50ML 100 ML IV SCH (00:55)
[2021-02-05] MEDS: FENTANYL 2000MCG/NS 250 250 ML IV SCH ×3 (02:58→18:30)
[2021-02-05] MEDS: MIDAZOLAM HCL 5MG/ML 10ML VIAL 100 ML IV PRN ×4 (03:55→21:56)
[2021-02-05] MEDS: PROPOFOL IV EMULSION 50 ML IV SCH ×3 (04:00→21:05)
[2021-02-05] MEDS: FUROSEMIDE INJ 100 MG in SODIUM CHLORIDE 0.9% 100 ML 90 ML IV SCH (05:31)
[2021-02-05 06:21] LABS: BASOPHILS # (AUTO) 0.1 (0.0-0.1); BASOPHILS % 0.5 % (0.0-1.0); EOSINOPHILS # (AUTO) 0.3 (0.0-0.4); EOSINOPHILS % 2.8 % (0.0-6.0); HEMATOCRIT 28.6 % (34.2-44.1); HEMOGLOBIN 8.9 g/dL (12.0-16.0); LYMPHOCYTES # (AUTO) 1.2 (1.0-3.2); LYMPHOCYTES % 9.6 % (18.0-39.1); MEAN CORPUSCULAR HEMOGLOBIN 30.2 pg (28-32); MEAN CORPUSCULAR HGB CONC 31.1 g/dL (31-35); MEAN CORPUSCULAR VOLUME 96.9 fL (81-99); MONOCYTES # (AUTO) 1.4 (0.2-0.8); MONOCYTES % 11.5 % (4.4-11.3); NEUTROPHILS # (AUTO) 8.8 (2.1-6.9); NEUTROPHILS % 72.6 % (38.7-80.0); PLATELET COUNT 253 x10e3/uL (140-360); RED BLOOD COUNT 2.95 x10e6/uL (3.6-5.1); RED CELL DISTRIBUTION WIDTH 12.8 % (11.7-14.4)
[2021-02-05 06:57] LABS: ALBUMIN 3.3 g/dL (3.5-5.0); ALBUMIN/GLOBULIN RATIO 0.8 (0.8-2.0); ANION GAP 17.1 mmol/L (8-16); CALCIUM 8.9 mg/dL (8.4-10.2); CREATININE, SERUM 0.52 mg/dL (0.57-1.11); POTASSIUM 3.1 mmol/L (3.5-5.1)
[2021-02-05 08:50] LABS: ABG HCO3 50 mmol/L (22-26); ABG PCO2 64 mmHg (35-45); ABG PO2 82 mmHg (80-105); ABG TCO2 50
[2021-02-05] MEDS ORDERED: POTASSIUM CHLORIDE 20 MEQ TAB CR PO SCH (09:00)
[2021-02-05] MEDS: ZINC SULFATE 220 MG CAP PO SCH (09:13)
[2021-02-05] MEDS: ENOXAPARIN SODIUM INJ 100 MG/ML SYR SC SCH ×2 (09:13→21:05)
[2021-02-05] MEDS: ASCORBIC ACID 500 MG TAB PO SCH ×2 (09:13→18:25)
[2021-02-05] MEDS ORDERED: ACETAZOLAMIDE SODIUM 500 MG/VIAL IV ONE (11:30)
[2021-02-05] MEDS ORDERED: POTASSIUM CHLORIDE 20 MEQ TAB CR PO ONE (15:30)
[2021-02-05] MEDS ORDERED: ACETAMINOPHEN 1000 MG/100 ML 100 ML IV ONE (17:31)
[2021-02-06] VITALS (28 sets, daily range): BP systolic 104–155; BP diastolic 63–93
[2021-02-06] MEDS: ROCURONIUM 1250MG/NS 250 250 ML IV SCH (01:14)
[2021-02-06] MEDS: FENTANYL 2000MCG/NS 250 250 ML IV SCH ×4 (01:48→22:59)
[2021-02-06] MEDS: ACETAMINOPHEN 325 MG TAB PO PRN (01:57)
[2021-02-06] MEDS: PROPOFOL IV EMULSION 50 ML IV SCH ×6 (02:10→20:51)
[2021-02-06] MEDS: MIDAZOLAM HCL 5MG/ML 10ML VIAL 100 ML IV PRN ×4 (02:42→19:17)
[2021-02-06 06:13] LABS: BASOPHILS # (AUTO) 0.1 (0.0-0.1); BASOPHILS % 0.4 % (0.0-1.0); EOSINOPHILS # (AUTO) 0.4 (0.0-0.4); EOSINOPHILS % 2.9 % (0.0-6.0); HEMATOCRIT 29.9 % (34.2-44.1); HEMOGLOBIN 9.3 g/dL (12.0-16.0); LYMPHOCYTES # (AUTO) 2.2 (1.0-3.2); LYMPHOCYTES % 17.8 % (18.0-39.1); MEAN CORPUSCULAR HEMOGLOBIN 29.8 pg (28-32); MEAN CORPUSCULAR HGB CONC 31.1 g/dL (31-35); MEAN CORPUSCULAR VOLUME 95.8 fL (81-99); MONOCYTES # (AUTO) 1.5 (0.2-0.8); MONOCYTES % 11.9 % (4.4-11.3); NEUTROPHILS # (AUTO) 7.8 (2.1-6.9); NEUTROPHILS % 63.6 % (38.7-80.0); PLATELET COUNT 307 x10e3/uL (140-360); RED BLOOD COUNT 3.12 x10e6/uL (3.6-5.1); RED CELL DISTRIBUTION WIDTH 13.3 % (11.7-14.4)
[2021-02-06 06:55] LABS: ALBUMIN 2.8 g/dL (3.5-5.0); ALBUMIN/GLOBULIN RATIO 0.8 (0.8-2.0); ANION GAP 12.3 mmol/L (8-16); CALCIUM 8.8 mg/dL (8.4-10.2); CREATININE, SERUM 0.43 mg/dL (0.57-1.11); POTASSIUM 3.3 mmol/L (3.5-5.1)
[2021-02-06] MEDS ORDERED: KCL 20 MEQ PACKET/ ORAL SOLN ONE (08:46)
[2021-02-06] MEDS: ASCORBIC ACID 500 MG TAB PO SCH ×2 (09:00→17:53)
[2021-02-06] MEDS: KCL 20 MEQ PACKET/ ORAL SOLN PO SCH (09:00)
[2021-02-06] MEDS: ZINC SULFATE 220 MG CAP PO SCH (09:00)
[2021-02-06 09:14] LABS: ABG HCO3 40 mmol/L (22-26); ABG PCO2 60 mmHg (35-45); ABG PH 7.43 (7.35-7.45); ABG PO2 80 mmHg (80-105); ABG TCO2 42
[2021-02-06] MEDS ORDERED: CITRATE OF MAGNESIA 300ML BOTTLE PO ONE (09:15)
[2021-02-06] MEDS ORDERED: POTASSIUM CHLORIDE 20MEQ/100ML 200 ML IV ONE (10:00)
[2021-02-06] MEDS ORDERED: KCL 20 MEQ PACKET/ ORAL SOLN NG ONE (12:00)
[2021-02-06] MEDS ORDERED: FUROSEMIDE INJ 10 MG/ML 2 ML VIAL IV ONE (12:00)
[2021-02-06] MEDS: ENOXAPARIN SODIUM INJ 100 MG/ML SYR SC SCH (21:15)
[2021-02-07] VITALS (27 sets, daily range): BP systolic 101–154; BP diastolic 56–91
[2021-02-07] MEDS: MIDAZOLAM HCL 5MG/ML 10ML VIAL 100 ML IV PRN ×4 (01:24→20:53)
[2021-02-07] MEDS ORDERED: PROPOFOL IV EMULSION 10MG/ML 100 ML ONE (04:04)
[2021-02-07] MEDS: PROPOFOL IV EMULSION 50 ML IV SCH ×2 (04:15→08:38)
[2021-02-07] MEDS: ROCURONIUM 1250MG/NS 250 250 ML IV SCH (05:50)
[2021-02-07] MEDS: FENTANYL 2000MCG/NS 250 250 ML IV SCH ×2 (05:50→19:30)
[2021-02-07 06:21] LABS: BASOPHILS # (AUTO) 0.1 (0.0-0.1); BASOPHILS % 0.6 % (0.0-1.0); EOSINOPHILS # (AUTO) 0.6 (0.0-0.4); EOSINOPHILS % 3.6 % (0.0-6.0); HEMATOCRIT 32.2 % (34.2-44.1); LYMPHOCYTES # (AUTO) 2.2 (1.0-3.2); MEAN CORPUSCULAR HGB CONC 31.1 g/dL (31-35); MEAN CORPUSCULAR VOLUME 96.7 fL (81-99); MONOCYTES # (AUTO) 1.6 (0.2-0.8); MONOCYTES % 9.5 % (4.4-11.3); NEUTROPHILS % 70.1 % (38.7-80.0); PLATELET COUNT 335 x10e3/uL (140-360); RED BLOOD COUNT 3.33 x10e6/uL (3.6-5.1); RED CELL DISTRIBUTION WIDTH 13.5 % (11.7-14.4)
[2021-02-07 06:52] LABS: ALBUMIN 2.7 g/dL (3.5-5.0); ALBUMIN/GLOBULIN RATIO 0.6 (0.8-2.0); ANION GAP 18.1 mmol/L (8-16); CALCIUM 9.3 mg/dL (8.4-10.2); CREATININE, SERUM 0.46 mg/dL (0.57-1.11); POTASSIUM 4.1 mmol/L (3.5-5.1)
[2021-02-07 08:23] LABS: ABG HCO3 36 mmol/L (22-26); ABG PCO2 57 mmHg (35-45); ABG PH 7.41 (7.35-7.45); ABG PO2 70 mmHg (80-105); ABG TCO2 38
[2021-02-07] MEDS: ZINC SULFATE 220 MG CAP PO SCH (09:40)
[2021-02-07] MEDS: KCL 20 MEQ PACKET/ ORAL SOLN PO SCH (09:40)
[2021-02-07] MEDS: ENOXAPARIN SODIUM INJ 100 MG/ML SYR SC SCH ×2 (09:40→20:54)
[2021-02-07] MEDS: ASCORBIC ACID 500 MG TAB PO SCH ×2 (09:40→17:43)
[2021-02-07] MEDS ORDERED: ACETAZOLAMIDE SODIUM 500 MG/VIAL IV ONE (11:15)
[2021-02-07] MEDS: CEFEPIME 1 GM in SODIUM CHLORIDE 0.9% 50ML 50 ML IV SCH ×2 (13:44→22:15)
[2021-02-07] MEDS: PROPOFOL IV EMULSION 10MG/ML 100 ML IV SCH ×2 (15:55→20:55)
[2021-02-07] MEDS: DOCUSATE SODIUM LIQD 100 MG/10 ML UDC NG SCH (17:43)
[2021-02-08] VITALS (30 sets, daily range): BP systolic 101–162; BP diastolic 56–89
[2021-02-08] MEDS: ROCURONIUM 1250MG/NS 250 250 ML IV SCH ×2 (00:35→20:28)
[2021-02-08] MEDS: FENTANYL 2000MCG/NS 250 250 ML IV SCH ×5 (02:15→23:59)
[2021-02-08] MEDS: MIDAZOLAM HCL 5MG/ML 10ML VIAL 100 ML IV PRN ×5 (02:16→18:23)
[2021-02-08] MEDS: PROPOFOL IV EMULSION 10MG/ML 100 ML IV SCH ×2 (02:50→07:27)
[2021-02-08 05:58] LABS: BASOPHILS # (AUTO) 0.1 (0.0-0.1); BASOPHILS % 0.5 % (0.0-1.0); EOSINOPHILS # (AUTO) 0.9 (0.0-0.4); EOSINOPHILS % 5.6 % (0.0-6.0); HEMATOCRIT 29.2 % (34.2-44.1); HEMOGLOBIN 8.9 g/dL (12.0-16.0); LYMPHOCYTES # (AUTO) 2.1 (1.0-3.2); LYMPHOCYTES % 12.5 % (18.0-39.1); MEAN CORPUSCULAR HEMOGLOBIN 29.4 pg (28-32); MEAN CORPUSCULAR HGB CONC 30.5 g/dL (31-35); MEAN CORPUSCULAR VOLUME 96.4 fL (81-99); MONOCYTES # (AUTO) 1.5 (0.2-0.8); MONOCYTES % 9.1 % (4.4-11.3); NEUTROPHILS # (AUTO) 11.6 (2.1-6.9); NEUTROPHILS % 70.1 % (38.7-80.0); PLATELET COUNT 307 x10e3/uL (140-360); RED BLOOD COUNT 3.03 x10e6/uL (3.6-5.1); RED CELL DISTRIBUTION WIDTH 13.8 % (11.7-14.4)
[2021-02-08] MEDS: CEFEPIME 1 GM in SODIUM CHLORIDE 0.9% 50ML 50 ML IV SCH ×3 (06:00→21:36)
[2021-02-08 06:28] LABS: ALBUMIN 2.4 g/dL (3.5-5.0); ALBUMIN/GLOBULIN RATIO 0.6 (0.8-2.0); ANION GAP 14.1 mmol/L (8-16); CALCIUM 9.1 mg/dL (8.4-10.2); CREATININE, SERUM 0.47 mg/dL (0.57-1.11); POTASSIUM 4.1 mmol/L (3.5-5.1)
[2021-02-08 08:40] LABS: ABG HCO3 34 mmol/L (22-26); ABG PCO2 74 mmHg (35-45); ABG PH 7.26 (7.35-7.45); ABG PO2 81 mmHg (80-105)
[2021-02-08 08:41] LABS: ABG TCO2 36
[2021-02-08] MEDS: ASCORBIC ACID 500 MG TAB PO SCH ×2 (08:51→17:27)
[2021-02-08] MEDS: KCL 20 MEQ PACKET/ ORAL SOLN PO SCH (08:51)
[2021-02-08] MEDS: DOCUSATE SODIUM LIQD 100 MG/10 ML UDC NG SCH ×2 (08:51→17:27)
[2021-02-08] MEDS: ZINC SULFATE 220 MG CAP PO SCH (08:51)
[2021-02-08] MEDS: ENOXAPARIN SODIUM INJ 100 MG/ML SYR SC SCH ×2 (09:47→21:36)
[2021-02-08] MEDS: SENNOSIDES 8.6 MG TAB PO SCH (13:06)
[2021-02-08 13:53] LABS: ABG HCO3 33 mmol/L (22-26); ABG PCO2 68 mmHg (35-45); ABG PH 7.29 (7.35-7.45); ABG PO2 80 mmHg (80-105); ABG TCO2 35
[2021-02-09] VITALS (28 sets, daily range): BP systolic 91–154; BP diastolic 47–69
[2021-02-09] MEDS: PROPOFOL IV EMULSION 10MG/ML 100 ML IV SCH ×3 (02:16→16:25)
[2021-02-09] MEDS: MIDAZOLAM HCL 5MG/ML 10ML VIAL 100 ML IV PRN ×5 (04:53→21:01)
[2021-02-09] MEDS: CEFEPIME 1 GM in SODIUM CHLORIDE 0.9% 50ML 50 ML IV SCH ×2 (05:09→13:44)
[2021-02-09 05:29] LABS: BASOPHILS # (AUTO) 0.1 (0.0-0.1); BASOPHILS % 0.4 % (0.0-1.0); EOSINOPHILS # (AUTO) 0.3 (0.0-0.4); EOSINOPHILS % 2.2 % (0.0-6.0); HEMATOCRIT 28.2 % (34.2-44.1); HEMOGLOBIN 8.6 g/dL (12.0-16.0); LYMPHOCYTES # (AUTO) 1.9 (1.0-3.2); LYMPHOCYTES % 12.8 % (18.0-39.1); MEAN CORPUSCULAR HEMOGLOBIN 29.4 pg (28-32); MEAN CORPUSCULAR HGB CONC 30.5 g/dL (31-35); MEAN CORPUSCULAR VOLUME 96.2 fL (81-99); MONOCYTES # (AUTO) 1.2 (0.2-0.8); MONOCYTES % 8.2 % (4.4-11.3); NEUTROPHILS # (AUTO) 10.8 (2.1-6.9); NEUTROPHILS % 72.1 % (38.7-80.0); PLATELET COUNT 327 x10e3/uL (140-360); RED BLOOD COUNT 2.93 x10e6/uL (3.6-5.1); RED CELL DISTRIBUTION WIDTH 13.9 % (11.7-14.4)
[2021-02-09 06:03] LABS: ALBUMIN 2.3 g/dL (3.5-5.0); ALBUMIN/GLOBULIN RATIO 0.5 (0.8-2.0); ANION GAP 13.2 mmol/L (8-16); CALCIUM 8.9 mg/dL (8.4-10.2); CREATININE, SERUM 0.39 mg/dL (0.57-1.11); POTASSIUM 4.2 mmol/L (3.5-5.1)
[2021-02-09] MEDS: FENTANYL 2000MCG/NS 250 250 ML IV SCH ×3 (06:23→16:22)
[2021-02-09] MEDS: ENOXAPARIN SODIUM INJ 100 MG/ML SYR SC SCH ×2 (08:13→20:32)
[2021-02-09] MEDS: ZINC SULFATE 220 MG CAP PO SCH (08:13)
[2021-02-09] MEDS: DOCUSATE SODIUM LIQD 100 MG/10 ML UDC NG SCH ×2 (08:13→16:16)
[2021-02-09] MEDS: SENNOSIDES 8.6 MG TAB PO SCH (08:13)
[2021-02-09] MEDS: ASCORBIC ACID 500 MG TAB PO SCH ×2 (08:13→16:16)
[2021-02-09] MEDS: KCL 20 MEQ PACKET/ ORAL SOLN PO SCH (08:16)
[2021-02-09 10:26] LABS: ABG PH 7.32 (7.35-7.45)
[2021-02-09 10:27] LABS: ABG HCO3 37 mmol/L (22-26); ABG PCO2 72 mmHg (35-45); ABG PO2 87 mmHg (80-105); ABG TCO2 39
[2021-02-09] MEDS ORDERED: ALBUMIN 25% 25GM 100ML 0.25 GM/ML BTL IV SCH (13:00)
[2021-02-09] MEDS: ALBUMIN 25% 12.5GM 0.25 GM/ML BTL IV SCH ×2 (14:30→20:38)
[2021-02-09] MEDS: FUROSEMIDE INJ 100 MG in SODIUM CHLORIDE 0.9% 100 ML 90 ML IV SCH (14:39)
[2021-02-09] MEDS: ROCURONIUM 1250MG/NS 250 250 ML IV SCH (16:37)
[2021-02-09] MEDS: ACETAMINOPHEN 325 MG TAB PO PRN (20:10)
[2021-02-10] VITALS (29 sets, daily range): BP systolic 99–157; BP diastolic 44–95
[2021-02-10] MEDS: MIDAZOLAM HCL 5MG/ML 10ML VIAL 100 ML IV PRN ×5 (02:33→23:37)
[2021-02-10] MEDS: ALBUMIN 25% 12.5GM 0.25 GM/ML BTL IV SCH ×3 (05:36→21:19)
[2021-02-10 06:57] LABS: BASOPHILS # (AUTO) 0.1 (0.0-0.1); BASOPHILS % 0.7 % (0.0-1.0); EOSINOPHILS # (AUTO) 0.5 (0.0-0.4); HEMATOCRIT 25.5 % (34.2-44.1); HEMOGLOBIN 7.8 g/dL (12.0-16.0); LYMPHOCYTES # (AUTO) 2.7 (1.0-3.2); MEAN CORPUSCULAR HEMOGLOBIN 29.9 pg (28-32); MEAN CORPUSCULAR HGB CONC 30.6 g/dL (31-35); MEAN CORPUSCULAR VOLUME 97.7 fL (81-99); MONOCYTES # (AUTO) 1.7 (0.2-0.8); MONOCYTES % 10.9 % (4.4-11.3); NEUTROPHILS % 63.4 % (38.7-80.0); PLATELET COUNT 400 x10e3/uL (140-360); RED BLOOD COUNT 2.61 x10e6/uL (3.6-5.1); RED CELL DISTRIBUTION WIDTH 13.9 % (11.7-14.4)
[2021-02-10 07:43] LABS: ALBUMIN 3.2 g/dL (3.5-5.0); ALBUMIN/GLOBULIN RATIO 0.8 (0.8-2.0); ANION GAP 14.1 mmol/L (8-16); CALCIUM 8.8 mg/dL (8.4-10.2); CREATININE, SERUM 0.52 mg/dL (0.57-1.11); POTASSIUM 3.1 mmol/L (3.5-5.1)
[2021-02-10] MEDS: DOCUSATE SODIUM LIQD 100 MG/10 ML UDC NG SCH ×2 (08:09→16:35)
[2021-02-10] MEDS: SENNOSIDES 8.6 MG TAB PO SCH (08:09)
[2021-02-10] MEDS: ENOXAPARIN SODIUM INJ 100 MG/ML SYR SC SCH ×2 (08:09→20:27)
[2021-02-10] MEDS: ZINC SULFATE 220 MG CAP PO SCH (08:09)
[2021-02-10] MEDS: ACETAMINOPHEN 325 MG TAB PO PRN (08:09)
[2021-02-10] MEDS ORDERED: FUROSEMIDE INJ 10 MG/ML 2 ML VIAL IV SCH (09:00)
[2021-02-10] MEDS: FENTANYL 2000MCG/NS 250 250 ML IV SCH ×2 (10:18→17:44)
[2021-02-10] MEDS: ROCURONIUM 1250MG/NS 250 250 ML IV SCH (10:18)
[2021-02-10 10:24] LABS: ABG PCO2 66 mmHg (35-45)
[2021-02-10 10:25] LABS: ABG HCO3 42 mmol/L (22-26); ABG PO2 55 mmHg (80-105); ABG TCO2 44
[2021-02-10] MEDS: FUROSEMIDE INJ 100 MG in SODIUM CHLORIDE 0.9% 100 ML 90 ML IV SCH (10:35)
[2021-02-10] MEDS: KCL 20 MEQ PACKET/ ORAL SOLN NG SCH (10:36)
[2021-02-10] MEDS: PROPOFOL IV EMULSION 10MG/ML 100 ML IV SCH ×3 (11:52→21:00)
[2021-02-11] VITALS (33 sets, daily range): BP systolic 99–158; BP diastolic 51–88
[2021-02-11] MEDS: ACETAMINOPHEN 325 MG TAB PO PRN ×3 (00:05→17:39)
[2021-02-11] MEDS: FENTANYL 2000MCG/NS 250 250 ML IV SCH ×4 (00:37→19:57)
[2021-02-11] MEDS: MIDAZOLAM HCL 5MG/ML 10ML VIAL 100 ML IV PRN ×4 (04:10→18:32)
[2021-02-11] MEDS: ALBUMIN 25% 12.5GM 0.25 GM/ML BTL IV SCH ×3 (05:46→21:27)
[2021-02-11] MEDS: FUROSEMIDE INJ 100 MG in SODIUM CHLORIDE 0.9% 100 ML 90 ML IV SCH ×2 (05:47→18:31)
[2021-02-11 06:06] LABS: BASOPHILS # (AUTO) 0.2 (0.0-0.1); BASOPHILS % 0.7 % (0.0-1.0); EOSINOPHILS # (AUTO) 0.2 (0.0-0.4); EOSINOPHILS % 0.6 % (0.0-6.0); HEMATOCRIT 24.1 % (34.2-44.1); HEMOGLOBIN 7.9 g/dL (12.0-16.0); LYMPHOCYTES # (AUTO) 1.8 (1.0-3.2); LYMPHOCYTES % 7.1 % (18.0-39.1); MEAN CORPUSCULAR HEMOGLOBIN 31.7 pg (28-32); MEAN CORPUSCULAR HGB CONC 32.8 g/dL (31-35); MEAN CORPUSCULAR VOLUME 96.8 fL (81-99); MONOCYTES # (AUTO) 2.4 (0.2-0.8); MONOCYTES % 9.1 % (4.4-11.3); NEUTROPHILS # (AUTO) 20.5 (2.1-6.9); NEUTROPHILS % 79.3 % (38.7-80.0); PLATELET COUNT 434 x10e3/uL (140-360); RED BLOOD COUNT 2.49 x10e6/uL (3.6-5.1); RED CELL DISTRIBUTION WIDTH 14.2 % (11.7-14.4)
[2021-02-11 06:19] LABS: ALBUMIN 3.3 g/dL (3.5-5.0); ALBUMIN/GLOBULIN RATIO 0.9 (0.8-2.0); ANION GAP 14.2 mmol/L (8-16); CALCIUM 9.2 mg/dL (8.4-10.2); CREATININE, SERUM 0.49 mg/dL (0.57-1.11); POTASSIUM 3.2 mmol/L (3.5-5.1)
[2021-02-11] MEDS: PROPOFOL IV EMULSION 10MG/ML 100 ML IV SCH ×4 (06:44→22:20)
[2021-02-11] MEDS: ROCURONIUM 1250MG/NS 250 250 ML IV SCH (07:48)
[2021-02-11] MEDS: ENOXAPARIN SODIUM INJ 100 MG/ML SYR SC SCH ×2 (08:01→21:16)
[2021-02-11] MEDS: SENNOSIDES 8.6 MG TAB PO SCH (08:01)
[2021-02-11] MEDS: ZINC SULFATE 220 MG CAP PO SCH (08:01)
[2021-02-11] MEDS: DOCUSATE SODIUM LIQD 100 MG/10 ML UDC NG SCH ×2 (08:01→16:23)
[2021-02-11 08:55] LABS: BAND NEUTROPHILS % (MANUAL) 4 %; EOSINOPHILS % (MANUAL) 1 % (0-7); LYMPHOCYTES % (MANUAL) 4 % (19-48); MONOCYTES % (MANUAL) 5 % (3.4-9.0); NEUTROPHILS % (MANUAL) 85 % (40-74); PLATELET ESTIMATE ADEQUATE
[2021-02-11 08:56] LABS: HYPOCHROMASIA SLIGHT; PLATELET MORPHOLOGY COMMENT FEW LARGE; RBC MORPHOLOGY COMMENT NORMAL
[2021-02-11] MEDS ORDERED: POTASSIUM CHLORIDE 20MEQ/100ML 200 ML IV ONE (09:30)
[2021-02-11] MEDS ORDERED: ACETAZOLAMIDE SODIUM 500 MG/VIAL IV ONE (09:30)
[2021-02-11] MEDS ORDERED: Vancomycin IV 1 GM in SODIUM CHLORIDE 0.9% 250ML 250 ML IV SCH (09:30)
[2021-02-11 09:51] LABS: ABG PH 7.45 (7.35-7.45)
[2021-02-11 09:52] LABS: ABG HCO3 48 mmol/L (22-26); ABG PCO2 69 mmHg (35-45); ABG PO2 118 mmHg (80-105)
[2021-02-11 09:53] LABS: ABG TCO2 50
[2021-02-11] MEDS ORDERED: MEROPENEM 1 GM in SODIUM CHLORIDE 0.9% 100 ML IV SCH (12:00)
[2021-02-11] MEDS: CEFEPIME 1 GM in SODIUM CHLORIDE 0.9% 50ML 50 ML IV SCH ×2 (13:44→21:28)
[2021-02-11] MEDS: FLUCONAZOLE 200 MG/100 ML 100 ML IV SCH (15:08)
[2021-02-11 18:22] LABS: CLARITY,URINE SL CLOUDY (CLEAR); COLOR,URINE YELLOW (YELLOW); LEUKOCYTE ESTERASE ,URINE NEGATIVE (NEGATIVE); NITRITE,URINE NEGATIVE (NEGATIVE); PROTEIN,URINE DIPSTICK 1+ (NEGATIVE)
[2021-02-11 18:23] LABS: KETONES,URINE NEGATIVE (NEGATIVE); URINE UROBILINOGEN 0.2 mg/dL (0.2 - 1)
[2021-02-11 18:27] LABS: BACTERIA,URINE MODERATE /HPF; EPITHELIAL CELLS,URINE FEW /LPF; RBC,URINE 0-5 /HPF (0-5); WBC,URINE (MAN) 0-5 /HPF (0-5)
[2021-02-11 18:28] LABS: AMORPHOUS SEDIMENT,URINE FEW (FEW); YEAST,URINE MODERATE
[2021-02-12] VITALS (30 sets, daily range): BP systolic 96–137; BP diastolic 51–99
[2021-02-12] MEDS: ACETAMINOPHEN 325 MG TAB PO PRN (00:09)
[2021-02-12] MEDS: MIDAZOLAM HCL 5MG/ML 10ML VIAL 100 ML IV PRN ×4 (00:29→19:58)
[2021-02-12] MEDS: PROPOFOL IV EMULSION 10MG/ML 100 ML IV SCH ×3 (02:13→13:36)
[2021-02-12] MEDS: FENTANYL 2000MCG/NS 250 250 ML IV SCH ×4 (02:59→22:39)
[2021-02-12] MEDS: ALBUMIN 25% 12.5GM 0.25 GM/ML BTL IV SCH ×3 (05:02→21:05)
[2021-02-12] MEDS: CEFEPIME 1 GM in SODIUM CHLORIDE 0.9% 50ML 50 ML IV SCH ×3 (06:02→21:46)
[2021-02-12 07:17] LABS: ALBUMIN 3.7 g/dL (3.5-5.0); ALBUMIN/GLOBULIN RATIO 1.2 (0.8-2.0); ANION GAP 14.5 mmol/L (8-16); CALCIUM 8.9 mg/dL (8.4-10.2); CREATININE, SERUM 0.5 mg/dL (0.57-1.11)
[2021-02-12 07:23] LABS: POTASSIUM 2.5 mmol/L (3.5-5.1)
[2021-02-12 08:13] LABS: BASOPHILS # (AUTO) 0.1 (0.0-0.1); BASOPHILS % 0.3 % (0.0-1.0); EOSINOPHILS # (AUTO) 0.4 (0.0-0.4); EOSINOPHILS % 2.1 % (0.0-6.0); LYMPHOCYTES # (AUTO) 2.3 (1.0-3.2); LYMPHOCYTES % 12.7 % (18.0-39.1); MEAN CORPUSCULAR HEMOGLOBIN 29.8 pg (28-32); MEAN CORPUSCULAR HGB CONC 30.8 g/dL (31-35); MEAN CORPUSCULAR VOLUME 96.9 fL (81-99); MONOCYTES # (AUTO) 1.7 (0.2-0.8); MONOCYTES % 9.6 % (4.4-11.3); NEUTROPHILS % 72.9 % (38.7-80.0); PLATELET COUNT 428 x10e3/uL (140-360); RED BLOOD COUNT 2.28 x10e6/uL (3.6-5.1)
[2021-02-12] MEDS: ZINC SULFATE 220 MG CAP PO SCH (08:17)
[2021-02-12] MEDS: KCL 20 MEQ PACKET/ ORAL SOLN NG SCH (08:17)
[2021-02-12] MEDS: ENOXAPARIN SODIUM INJ 100 MG/ML SYR SC SCH ×3 (08:17→20:12)
[2021-02-12] MEDS: SENNOSIDES 8.6 MG TAB PO SCH (08:17)
[2021-02-12] MEDS: DOCUSATE SODIUM LIQD 100 MG/10 ML UDC NG SCH ×2 (08:17→19:27)
[2021-02-12 08:18] LABS: HEMATOCRIT 22.1 % (34.2-44.1); HEMOGLOBIN 6.8 g/dL (12.0-16.0)
[2021-02-12 08:24] LABS: ANION GAP 14.4 mmol/L (8-16); CALCIUM 9.2 mg/dL (8.4-10.2); CREATININE, SERUM 0.5 mg/dL (0.57-1.11)
[2021-02-12 08:29] LABS: POTASSIUM 2.4 mmol/L (3.5-5.1)
[2021-02-12] MEDS ORDERED: ACETAMINOPHEN 325 MG TAB PO STA (08:34)
[2021-02-12] MEDS ORDERED: SODIUM CHLORIDE 0.9% 250ML 250 ML IV NR ×2 (08:45→09:00)
[2021-02-12] MEDS ORDERED: POTASSIUM CHLORIDE 20MEQ/100ML 200 ML IV ONE ×2 (08:45→18:00)
[2021-02-12] MEDS ORDERED: POTASSIUM CHLORIDE 20MEQ/100ML 200 ML IV STA (08:47)
[2021-02-12 08:57] LABS: ABG PH 7.37 (7.35-7.45)
[2021-02-12 08:58] LABS: ABG HCO3 44 mmol/L (22-26); ABG PCO2 76 mmHg (35-45); ABG PO2 85 mmHg (80-105); ABG TCO2 46
[2021-02-12] MEDS ORDERED: ACETAZOLAMIDE SODIUM 500 MG/VIAL IV NR (09:00)
[2021-02-12] MEDS: ROCURONIUM 1250MG/NS 250 250 ML IV SCH (09:07)
[2021-02-12] MEDS: FUROSEMIDE INJ 100 MG in SODIUM CHLORIDE 0.9% 100 ML 90 ML IV SCH (14:05)
[2021-02-12] MEDS: FLUCONAZOLE 200 MG/100 ML 100 ML IV SCH (14:08)
[2021-02-12] MEDS ORDERED: SODIUM CHLORIDE 0.9% 250ML 250 ML ONE (15:29)
[2021-02-12] MEDS ORDERED: POTASSIUM CHLORIDE 20MEQ/15ML UDC NG NR (16:00)
[2021-02-12] MEDS ORDERED: ALBUMIN 25% 25GM 100ML 100 ML ONE ×2 (20:47→20:48)
[2021-02-12 23:26] LABS: HEMATOCRIT 23.6 % (34.2-44.1); HEMOGLOBIN 7.3 g/dL (12.0-16.0)
[2021-02-13] VITALS (28 sets, daily range): BP systolic 99–148; BP diastolic 56–78
[2021-02-13] MEDS: PROPOFOL IV EMULSION 10MG/ML 100 ML IV SCH ×3 (00:13→10:47)
[2021-02-13] MEDS: MIDAZOLAM HCL 5MG/ML 10ML VIAL 100 ML IV PRN ×4 (00:14→15:30)
[2021-02-13] MEDS: ALBUMIN 25% 12.5GM 0.25 GM/ML BTL IV SCH ×2 (05:00→12:59)
[2021-02-13] MEDS: CEFEPIME 1 GM in SODIUM CHLORIDE 0.9% 50ML 50 ML IV SCH ×2 (05:00→13:30)
[2021-02-13] MEDS: FENTANYL 2000MCG/NS 250 250 ML IV SCH ×3 (05:25→17:17)
[2021-02-13] MEDS: ROCURONIUM 1250MG/NS 250 250 ML IV SCH (06:07)
[2021-02-13 06:14] LABS: BASOPHILS # (AUTO) 0.1 (0.0-0.1); BASOPHILS % 0.4 % (0.0-1.0); EOSINOPHILS # (AUTO) 0.7 (0.0-0.4); EOSINOPHILS % 4.7 % (0.0-6.0); HEMATOCRIT 24.1 % (34.2-44.1); HEMOGLOBIN 7.8 g/dL (12.0-16.0); LYMPHOCYTES # (AUTO) 1.9 (1.0-3.2); LYMPHOCYTES % 13.1 % (18.0-39.1); MEAN CORPUSCULAR HEMOGLOBIN 31.6 pg (28-32); MEAN CORPUSCULAR HGB CONC 32.4 g/dL (31-35); MEAN CORPUSCULAR VOLUME 97.6 fL (81-99); MONOCYTES # (AUTO) 1.5 (0.2-0.8); MONOCYTES % 10.3 % (4.4-11.3); NEUTROPHILS # (AUTO) 9.9 (2.1-6.9); NEUTROPHILS % 67.5 % (38.7-80.0); PLATELET COUNT 466 x10e3/uL (140-360); RED BLOOD COUNT 2.47 x10e6/uL (3.6-5.1); RED CELL DISTRIBUTION WIDTH 15.1 % (11.7-14.4)
[2021-02-13] MEDS ORDERED: POTASSIUM CHLORIDE 20MEQ/100ML 100 ML IV ONE ×2 (06:30→15:00)
[2021-02-13 06:33] LABS: ALBUMIN 3.8 g/dL (3.5-5.0); ALBUMIN/GLOBULIN RATIO 1.2 (0.8-2.0); ANION GAP 15.5 mmol/L (8-16); CREATININE, SERUM 0.53 mg/dL (0.57-1.11); POTASSIUM 3.5 mmol/L (3.5-5.1)
[2021-02-13] MEDS: DOCUSATE SODIUM LIQD 100 MG/10 ML UDC NG SCH ×2 (08:43→16:19)
[2021-02-13] MEDS: FUROSEMIDE INJ 100 MG in SODIUM CHLORIDE 0.9% 100 ML 90 ML IV SCH (08:44)
[2021-02-13] MEDS: ZINC SULFATE 220 MG CAP PO SCH (08:44)
[2021-02-13] MEDS: KCL 20 MEQ PACKET/ ORAL SOLN NG SCH (08:44)
[2021-02-13] MEDS: SENNOSIDES 8.6 MG TAB PO SCH (08:44)
[2021-02-13] MEDS: ENOXAPARIN SODIUM INJ 100 MG/ML SYR SC SCH (08:44)
[2021-02-13 08:48] LABS: ABG HCO3 45 mmol/L (22-26); ABG PCO2 73 mmHg (35-45); ABG PO2 80 mmHg (80-105); ABG TCO2 47
[2021-02-13] MEDS ORDERED: POTASSIUM CHLORIDE 20MEQ/15ML UDC NG ONE (12:15)
[2021-02-13] MEDS ORDERED: KCL 20 MEQ PACKET/ ORAL SOLN NG ONE (12:30)
[2021-02-13] MEDS: FLUCONAZOLE 200 MG/100 ML 100 ML IV SCH (14:30)
[2021-02-14] VITALS (26 sets, daily range): BP systolic 104–134; BP diastolic 59–75
[2021-02-14] MEDS: ENOXAPARIN SODIUM INJ 100 MG/ML SYR SC SCH ×3 (00:16→20:16)
[2021-02-14] MEDS: ALBUMIN 25% 12.5GM 0.25 GM/ML BTL IV SCH ×3 (00:16→13:48)
[2021-02-14] MEDS: CEFEPIME 1 GM in SODIUM CHLORIDE 0.9% 50ML 50 ML IV SCH ×4 (00:16→22:55)
[2021-02-14] MEDS ORDERED: FUROSEMIDE INJ 10 MG/ML 10 ML VIAL ONE (04:49)
[2021-02-14] MEDS ORDERED: SODIUM CHLORIDE 0.9% 100 ML ONE (04:50)
[2021-02-14] MEDS: PROPOFOL IV EMULSION 10MG/ML 100 ML IV SCH ×3 (05:26→20:14)
[2021-02-14 06:24] LABS: BASOPHILS # (AUTO) 0.1 (0.0-0.1); BASOPHILS % 0.6 % (0.0-1.0); EOSINOPHILS # (AUTO) 0.4 (0.0-0.4); HEMOGLOBIN 7.1 g/dL (12.0-16.0); LYMPHOCYTES % 15.8 % (18.0-39.1); MEAN CORPUSCULAR HEMOGLOBIN 29.7 pg (28-32); MEAN CORPUSCULAR HGB CONC 29.6 g/dL (31-35); MEAN CORPUSCULAR VOLUME 100.4 fL (81-99); MONOCYTES # (AUTO) 1.5 (0.2-0.8); MONOCYTES % 11.7 % (4.4-11.3); NEUTROPHILS # (AUTO) 7.9 (2.1-6.9); NEUTROPHILS % 63.7 % (38.7-80.0); PLATELET COUNT 394 x10e3/uL (140-360); RED BLOOD COUNT 2.39 x10e6/uL (3.6-5.1); RED CELL DISTRIBUTION WIDTH 14.9 % (11.7-14.4)
[2021-02-14 07:09] LABS: ALBUMIN 3.8 g/dL (3.5-5.0); ALBUMIN/GLOBULIN RATIO 1.1 (0.8-2.0); ANION GAP 14.6 mmol/L (8-16); CALCIUM 8.8 mg/dL (8.4-10.2); CREATININE, SERUM 0.51 mg/dL (0.57-1.11); POTASSIUM 3.6 mmol/L (3.5-5.1)
[2021-02-14] MEDS: ZINC SULFATE 220 MG CAP PO SCH (08:37)
[2021-02-14] MEDS: KCL 20 MEQ PACKET/ ORAL SOLN NG SCH (08:37)
[2021-02-14] MEDS: DOCUSATE SODIUM LIQD 100 MG/10 ML UDC NG SCH ×2 (08:37→16:43)
[2021-02-14] MEDS: SENNOSIDES 8.6 MG TAB PO SCH (08:37)
[2021-02-14 09:13] LABS: ABG PH 7.39 (7.35-7.45)
[2021-02-14 09:14] LABS: ABG HCO3 46 mmol/L (22-26); ABG PCO2 76 mmHg (35-45); ABG PO2 105 mmHg (80-105); ABG TCO2 48
[2021-02-14] MEDS ORDERED: ACETAZOLAMIDE SODIUM 500 MG/VIAL IV ONE (09:15)
[2021-02-14] MEDS: ROCURONIUM 1250MG/NS 250 250 ML IV SCH ×2 (11:15→20:15)
[2021-02-14] MEDS: MIDAZOLAM HCL 5MG/ML 10ML VIAL 100 ML IV PRN ×3 (12:00→20:15)
[2021-02-14] MEDS: ACETAMINOPHEN 325 MG TAB PO PRN (12:15)
[2021-02-14] MEDS: FLUCONAZOLE 200 MG/100 ML 100 ML IV SCH (15:00)
[2021-02-14] MEDS: FUROSEMIDE INJ 100 MG in SODIUM CHLORIDE 0.9% 100 ML 90 ML IV SCH (15:35)
[2021-02-14] MEDS: FENTANYL 2000MCG/NS 250 250 ML IV SCH (20:16)
[2021-02-15] VITALS (24 sets, daily range): BP systolic 104–136; BP diastolic 60–76
[2021-02-15] MEDS: CEFEPIME 1 GM in SODIUM CHLORIDE 0.9% 50ML 50 ML IV SCH ×3 (06:10→23:31)
[2021-02-15 06:33] LABS: BASOPHILS # (AUTO) 0.1 (0.0-0.1); BASOPHILS % 0.8 % (0.0-1.0); EOSINOPHILS # (AUTO) 0.3 (0.0-0.4); HEMATOCRIT 26.2 % (34.2-44.1); HEMOGLOBIN 7.8 g/dL (12.0-16.0); LYMPHOCYTES # (AUTO) 2.6 (1.0-3.2); LYMPHOCYTES % 15.7 % (18.0-39.1); MEAN CORPUSCULAR HEMOGLOBIN 30.4 pg (28-32); MEAN CORPUSCULAR HGB CONC 29.8 g/dL (31-35); MEAN CORPUSCULAR VOLUME 101.9 fL (81-99); MONOCYTES # (AUTO) 1.8 (0.2-0.8); MONOCYTES % 10.9 % (4.4-11.3); NEUTROPHILS # (AUTO) 10.8 (2.1-6.9); NEUTROPHILS % 65.1 % (38.7-80.0); PLATELET COUNT 468 x10e3/uL (140-360); RED BLOOD COUNT 2.57 x10e6/uL (3.6-5.1); RED CELL DISTRIBUTION WIDTH 15.1 % (11.7-14.4)
[2021-02-15 07:07] LABS: ALBUMIN 4.2 g/dL (3.5-5.0); ALBUMIN/GLOBULIN RATIO 1.2 (0.8-2.0); ANION GAP 16.4 mmol/L (8-16); CALCIUM 9.2 mg/dL (8.4-10.2); CREATININE, SERUM 0.54 mg/dL (0.57-1.11); POTASSIUM 3.4 mmol/L (3.5-5.1)
[2021-02-15] MEDS: ZINC SULFATE 220 MG CAP PO SCH (08:44)
[2021-02-15] MEDS: ENOXAPARIN SODIUM INJ 100 MG/ML SYR SC SCH ×2 (08:44→23:31)
[2021-02-15] MEDS: SENNOSIDES 8.6 MG TAB PO SCH (08:44)
[2021-02-15] MEDS: KCL 20 MEQ PACKET/ ORAL SOLN NG SCH (08:44)
[2021-02-15] MEDS: DOCUSATE SODIUM LIQD 100 MG/10 ML UDC NG SCH ×2 (08:44→16:58)
[2021-02-15] MEDS: MIDAZOLAM HCL 5MG/ML 10ML VIAL 100 ML IV PRN ×2 (08:44→13:11)
[2021-02-15] MEDS: PROPOFOL IV EMULSION 10MG/ML 100 ML IV SCH ×4 (08:48→17:18)
[2021-02-15] MEDS ORDERED: POTASSIUM CHLORIDE 20MEQ/100ML 200 ML IV ONE (09:00)
[2021-02-15] MEDS ORDERED: ACETAZOLAMIDE SODIUM 500 MG/VIAL IV ONE (09:00)
[2021-02-15 09:22] LABS: ABG PH 7.32 (7.35-7.45)
[2021-02-15 09:23] LABS: ABG HCO3 47 mmol/L (22-26); ABG PCO2 91 mmHg (35-45); ABG PO2 72 mmHg (80-105); ABG TCO2 49
[2021-02-15] MEDS ORDERED: POTASSIUM CHLORIDE 20MEQ/15ML UDC NG ONE (10:45)
[2021-02-15] MEDS: METOPROLOL TARTRATE 25 MG TAB PO SCH ×2 (11:12→23:31)
[2021-02-15] MEDS: FUROSEMIDE INJ 100 MG in SODIUM CHLORIDE 0.9% 100 ML 90 ML IV SCH (12:15)
[2021-02-15] MEDS: ROCURONIUM 1250MG/NS 250 250 ML IV SCH (13:10)
[2021-02-15] MEDS: FLUCONAZOLE 200 MG/100 ML 100 ML IV SCH (14:39)
[2021-02-15] MEDS: FENTANYL 2000MCG/NS 250 250 ML IV SCH (18:43)
[2021-02-15 20:12] LABS: ABG PH 7.42 (7.35-7.45)
[2021-02-15 20:18] LABS: ABG HCO3 46 mmol/L (22-26); ABG PCO2 70 mmHg (35-45); ABG PO2 109 mmHg (80-105); ABG TCO2 48
[2021-02-16] VITALS (25 sets, daily range): BP systolic 103–143; BP diastolic 55–69
[2021-02-16] MEDS: CEFEPIME 1 GM in SODIUM CHLORIDE 0.9% 50ML 50 ML IV SCH ×3 (05:41→22:15)
[2021-02-16 05:45] LABS: BASOPHILS # (AUTO) 0.1 (0.0-0.1); BASOPHILS % 0.7 % (0.0-1.0); EOSINOPHILS # (AUTO) 0.4 (0.0-0.4); EOSINOPHILS % 2.3 % (0.0-6.0); HEMATOCRIT 27.5 % (34.2-44.1); HEMOGLOBIN 8.6 g/dL (12.0-16.0); LYMPHOCYTES # (AUTO) 1.8 (1.0-3.2); LYMPHOCYTES % 10.2 % (18.0-39.1); MEAN CORPUSCULAR HEMOGLOBIN 30.1 pg (28-32); MEAN CORPUSCULAR HGB CONC 31.3 g/dL (31-35); MEAN CORPUSCULAR VOLUME 96.2 fL (81-99); MONOCYTES # (AUTO) 1.8 (0.2-0.8); NEUTROPHILS # (AUTO) 12.5 (2.1-6.9); NEUTROPHILS % 70.4 % (38.7-80.0); PLATELET COUNT 430 x10e3/uL (140-360); RED BLOOD COUNT 2.86 x10e6/uL (3.6-5.1); RED CELL DISTRIBUTION WIDTH 14.7 % (11.7-14.4)
[2021-02-16 06:12] LABS: ALBUMIN 3.9 g/dL (3.5-5.0); ANION GAP 17.8 mmol/L (8-16); CALCIUM 9.2 mg/dL (8.4-10.2); CREATININE, SERUM 0.51 mg/dL (0.57-1.11)
[2021-02-16 06:15] LABS: POTASSIUM 2.8 mmol/L (3.5-5.1)
[2021-02-16] MEDS: POTASSIUM CHLORIDE 20MEQ/100ML 100 ML IV SCH ×2 (06:35→08:43)
[2021-02-16] MEDS: PROPOFOL IV EMULSION 10MG/ML 100 ML IV SCH ×3 (07:46→14:44)
[2021-02-16 08:05] LABS: EOSINOPHILS % (MANUAL) 3 % (0-7); HYPOCHROMASIA SLIGHT; LYMPHOCYTES % (MANUAL) 11 % (19-48); METAMYELOCYTES % (MANUAL) 1 % (0-0); MONOCYTES % (MANUAL) 6 % (3.4-9.0); NEUTROPHILS % (MANUAL) 78 % (40-74); NUCLEATED RED BLOOD CELLS 1; PLATELET ESTIMATE ADEQUATE; PLATELET MORPHOLOGY COMMENT NORMAL; PROMYELOCYTES % (MANUAL) 1 % (0-0); RBC MORPHOLOGY COMMENT NORMAL
[2021-02-16] MEDS ORDERED: KCL 20 MEQ PACKET/ ORAL SOLN PO SCH (09:00)
[2021-02-16] MEDS: ZINC SULFATE 220 MG CAP PO SCH (09:01)
[2021-02-16] MEDS: SENNOSIDES 8.6 MG TAB PO SCH (09:01)
[2021-02-16] MEDS: KCL 20 MEQ PACKET/ ORAL SOLN NG SCH (09:02)
[2021-02-16] MEDS: DOCUSATE SODIUM LIQD 100 MG/10 ML UDC NG SCH ×2 (09:02→17:51)
[2021-02-16] MEDS: METOPROLOL TARTRATE 25 MG TAB PO SCH ×2 (09:02→21:00)
[2021-02-16 09:03] LABS: ABG HCO3 46 mmol/L (22-26); ABG PCO2 63 mmHg (35-45); ABG PH 7.48 (7.35-7.45); ABG PO2 82 mmHg (80-105); ABG TCO2 48
[2021-02-16] MEDS: ENOXAPARIN SODIUM INJ 100 MG/ML SYR SC SCH ×2 (09:17→22:15)
[2021-02-16] MEDS: FUROSEMIDE INJ 100 MG in SODIUM CHLORIDE 0.9% 100 ML 90 ML IV SCH (09:25)
[2021-02-16] MEDS: FENTANYL 2000MCG/NS 250 250 ML IV SCH ×3 (09:29→22:02)
[2021-02-16] MEDS: MIDAZOLAM HCL 5MG/ML 10ML VIAL 100 ML IV PRN ×2 (10:00→14:45)
[2021-02-16] MEDS: ROCURONIUM 1250MG/NS 250 250 ML IV SCH (10:41)
[2021-02-16] MEDS: FLUCONAZOLE 200 MG/100 ML 100 ML IV SCH (14:13)
[2021-02-16] MEDS: KCL 20 MEQ PACKET/ ORAL SOLN PO SCH (17:51)
[2021-02-16] MEDS ORDERED: POTASSIUM CHLORIDE 20MEQ/100ML 200 ML IV ONE (19:00)
[2021-02-17] VITALS (29 sets, daily range): BP systolic 106–143; BP diastolic 51–69
[2021-02-17] MEDS: PROPOFOL IV EMULSION 10MG/ML 100 ML IV SCH ×5 (03:55→23:28)
[2021-02-17] MEDS: CEFEPIME 1 GM in SODIUM CHLORIDE 0.9% 50ML 50 ML IV SCH ×3 (06:01→21:23)
[2021-02-17 06:03] LABS: BASOPHILS # (AUTO) 0.1 (0.0-0.1); BASOPHILS % 0.6 % (0.0-1.0); EOSINOPHILS # (AUTO) 0.5 (0.0-0.4); EOSINOPHILS % 2.7 % (0.0-6.0); HEMOGLOBIN 8.3 g/dL (12.0-16.0); LYMPHOCYTES # (AUTO) 1.9 (1.0-3.2); LYMPHOCYTES % 11.4 % (18.0-39.1); MEAN CORPUSCULAR HEMOGLOBIN 30.1 pg (28-32); MEAN CORPUSCULAR HGB CONC 30.7 g/dL (31-35); MEAN CORPUSCULAR VOLUME 97.8 fL (81-99); MONOCYTES # (AUTO) 1.8 (0.2-0.8); MONOCYTES % 10.9 % (4.4-11.3); NEUTROPHILS # (AUTO) 11.6 (2.1-6.9); NEUTROPHILS % 68.9 % (38.7-80.0); PLATELET COUNT 388 x10e3/uL (140-360); RED BLOOD COUNT 2.76 x10e6/uL (3.6-5.1); RED CELL DISTRIBUTION WIDTH 15.3 % (11.7-14.4)
[2021-02-17 06:15] LABS: ALBUMIN 3.3 g/dL (3.5-5.0); ALBUMIN/GLOBULIN RATIO 0.8 (0.8-2.0); ANION GAP 16.4 mmol/L (8-16); CALCIUM 8.8 mg/dL (8.4-10.2); CREATININE, SERUM 0.45 mg/dL (0.57-1.11); POTASSIUM 3.4 mmol/L (3.5-5.1)
[2021-02-17] MEDS: KCL 20 MEQ PACKET/ ORAL SOLN NG SCH (08:10)
[2021-02-17] MEDS: DOCUSATE SODIUM LIQD 100 MG/10 ML UDC NG SCH ×2 (08:10→16:31)
[2021-02-17] MEDS: METOPROLOL TARTRATE 25 MG TAB PO SCH ×2 (08:11→21:00)
[2021-02-17] MEDS: SENNOSIDES 8.6 MG TAB PO SCH (08:11)
[2021-02-17] MEDS: FLUCONAZOLE 200 MG/100 ML 100 ML IV SCH (08:12)
[2021-02-17] MEDS: FUROSEMIDE INJ 100 MG in SODIUM CHLORIDE 0.9% 100 ML 90 ML IV SCH (08:15)
[2021-02-17 08:59] LABS: ABG PH 7.38 (7.35-7.45)
[2021-02-17 09:00] LABS: ABG HCO3 43 mmol/L (22-26); ABG PCO2 73 mmHg (35-45); ABG PO2 75 mmHg (80-105); ABG TCO2 45
[2021-02-17] MEDS: ENOXAPARIN SODIUM INJ 100 MG/ML SYR SC SCH ×2 (09:00→21:06)
[2021-02-17] MEDS: FENTANYL 2000MCG/NS 250 250 ML IV SCH ×2 (12:00→18:21)
[2021-02-17] MEDS: MIDAZOLAM HCL 5MG/ML 10ML VIAL 100 ML IV PRN ×3 (12:00→22:25)
[2021-02-17] MEDS ORDERED: POTASSIUM CHLORIDE 20 MEQ TAB CR PO NR (14:15)
[2021-02-17] MEDS: KCL 20 MEQ PACKET/ ORAL SOLN PO SCH (16:31)
[2021-02-17] MEDS: METOPROLOL TARTRATE INJ 1 MG/ML VIAL IV PRN (17:44)
[2021-02-17] MEDS ORDERED: SODIUM CHLORIDE 0.9% 250ML 250 ML ONE (21:24)
[2021-02-17] MEDS ORDERED: ROCURONIUM 1250MG/NS 250 250 ML IV SCH (23:15)
[2021-02-17] MEDS: ROCURONIUM 1250MG/NS 250 250 ML IV PRN (23:33)
[2021-02-18] VITALS (28 sets, daily range): BP systolic 105–149; BP diastolic 32–81
[2021-02-18] MEDS: FENTANYL 2000MCG/NS 250 250 ML IV SCH ×4 (01:27→21:10)
[2021-02-18] MEDS: PROPOFOL IV EMULSION 10MG/ML 100 ML IV SCH ×5 (02:57→23:48)
[2021-02-18] MEDS: MIDAZOLAM HCL 5MG/ML 10ML VIAL 100 ML IV PRN ×4 (04:01→18:14)
[2021-02-18] MEDS: CEFEPIME 1 GM in SODIUM CHLORIDE 0.9% 50ML 50 ML IV SCH ×3 (05:51→21:16)
[2021-02-18 06:22] LABS: BASOPHILS # (AUTO) 0.1 (0.0-0.1); BASOPHILS % 0.7 % (0.0-1.0); EOSINOPHILS # (AUTO) 0.6 (0.0-0.4); EOSINOPHILS % 3.8 % (0.0-6.0); HEMATOCRIT 27.3 % (34.2-44.1); HEMOGLOBIN 8.3 g/dL (12.0-16.0); LYMPHOCYTES % 13.8 % (18.0-39.1); MEAN CORPUSCULAR HEMOGLOBIN 30.2 pg (28-32); MEAN CORPUSCULAR HGB CONC 30.4 g/dL (31-35); MEAN CORPUSCULAR VOLUME 99.3 fL (81-99); MONOCYTES # (AUTO) 1.8 (0.2-0.8); MONOCYTES % 12.1 % (4.4-11.3); NEUTROPHILS # (AUTO) 9.5 (2.1-6.9); PLATELET COUNT 356 x10e3/uL (140-360); RED BLOOD COUNT 2.75 x10e6/uL (3.6-5.1); RED CELL DISTRIBUTION WIDTH 15.9 % (11.7-14.4)
[2021-02-18 06:52] LABS: ANION GAP 17.4 mmol/L (8-16); CREATININE, SERUM 0.45 mg/dL (0.57-1.11); POTASSIUM 3.4 mmol/L (3.5-5.1)
[2021-02-18 06:53] LABS: ALBUMIN 3.1 g/dL (3.5-5.0); ALBUMIN/GLOBULIN RATIO 0.7 (0.8-2.0); CALCIUM 8.7 mg/dL (8.4-10.2)
[2021-02-18] MEDS: KCL 20 MEQ PACKET/ ORAL SOLN NG SCH (08:13)
[2021-02-18] MEDS: SENNOSIDES 8.6 MG TAB PO SCH (08:13)
[2021-02-18] MEDS: DOCUSATE SODIUM LIQD 100 MG/10 ML UDC NG SCH ×2 (08:13→17:26)
[2021-02-18] MEDS: METOPROLOL TARTRATE 25 MG TAB PO SCH ×2 (08:13→20:47)
[2021-02-18] MEDS: ENOXAPARIN SODIUM INJ 100 MG/ML SYR SC SCH ×2 (08:14→20:48)
[2021-02-18 08:40] LABS: ABG PH 7.27 (7.35-7.45)
[2021-02-18 08:41] LABS: ABG HCO3 47 mmol/L (22-26); ABG PCO2 103 mmHg (35-45); ABG PO2 70 mmHg (80-105); ABG TCO2 > 50
[2021-02-18] MEDS ORDERED: ACETAZOLAMIDE SODIUM 500 MG/VIAL IV ONE (09:30)
[2021-02-18] MEDS ORDERED: POTASSIUM CHLORIDE 20MEQ/100ML 200 ML IV ONE (09:30)
[2021-02-18] MEDS: DEXAMETHASONE SOD PHOS 10 MG/1 ML VIAL IV SCH (09:52)
[2021-02-18] MEDS: FLUCONAZOLE 200 MG/100 ML 100 ML IV SCH (10:25)
[2021-02-18] MEDS: LACTULOSE SYRUP 20 GM/30 ML UDC PO PRN (12:45)
[2021-02-18] MEDS: BISACODYL 10 MG SUPP PR PRN (12:45)
[2021-02-18] MEDS: KCL 20 MEQ PACKET/ ORAL SOLN PO SCH (14:02)
[2021-02-18 17:20] LABS: ABG PH 7.28 (7.35-7.45)
[2021-02-18 17:21] LABS: ABG HCO3 39 mmol/L (22-26); ABG PCO2 84 mmHg (35-45); ABG PO2 71 mmHg (80-105); ABG TCO2 42
[2021-02-18] MEDS: ROCURONIUM 1250MG/NS 250 250 ML IV PRN (18:14)
[2021-02-19] VITALS (26 sets, daily range): BP systolic 102–147; BP diastolic 52–76
[2021-02-19] MEDS: MIDAZOLAM HCL 5MG/ML 10ML VIAL 100 ML IV PRN ×5 (00:39→21:23)
[2021-02-19] MEDS: PROPOFOL IV EMULSION 10MG/ML 100 ML IV SCH ×6 (03:29→23:36)
[2021-02-19] MEDS: FENTANYL 2000MCG/NS 250 250 ML IV SCH (04:21)
[2021-02-19] MEDS: CEFEPIME 1 GM in SODIUM CHLORIDE 0.9% 50ML 50 ML IV SCH ×3 (06:18→21:59)
[2021-02-19 06:48] LABS: BASOPHILS # (AUTO) 0.1 (0.0-0.1); BASOPHILS % 0.5 % (0.0-1.0); EOSINOPHILS # (AUTO) 0.1 (0.0-0.4); EOSINOPHILS % 0.9 % (0.0-6.0); HEMATOCRIT 26.3 % (34.2-44.1); LYMPHOCYTES # (AUTO) 2.5 (1.0-3.2); MEAN CORPUSCULAR HEMOGLOBIN 30.4 pg (28-32); MEAN CORPUSCULAR HGB CONC 30.4 g/dL (31-35); MONOCYTES # (AUTO) 1.8 (0.2-0.8); MONOCYTES % 11.5 % (4.4-11.3); NEUTROPHILS # (AUTO) 10.1 (2.1-6.9); NEUTROPHILS % 65.4 % (38.7-80.0); PLATELET COUNT 369 x10e3/uL (140-360); RED BLOOD COUNT 2.63 x10e6/uL (3.6-5.1); RED CELL DISTRIBUTION WIDTH 15.5 % (11.7-14.4)
[2021-02-19 07:18] LABS: ALBUMIN/GLOBULIN RATIO 0.7 (0.8-2.0); ANION GAP 13.3 mmol/L (8-16); CALCIUM 8.7 mg/dL (8.4-10.2); CREATININE, SERUM 0.44 mg/dL (0.57-1.11); POTASSIUM 3.3 mmol/L (3.5-5.1)
[2021-02-19 07:51] LABS: ABG HCO3 40 mmol/L (22-26); ABG PCO2 77 mmHg (35-45); ABG PH 7.32 (7.35-7.45); ABG PO2 76 mmHg (80-105); ABG TCO2 42
[2021-02-19] MEDS ORDERED: FENTANYL 2000MCG/NS 250 250 ML IV SCH (08:15)
[2021-02-19] MEDS ORDERED: POTASSIUM CHLORIDE 20MEQ/100ML 200 ML IV ONE (08:15)
[2021-02-19] MEDS: SENNOSIDES 8.6 MG TAB PO SCH (08:37)
[2021-02-19] MEDS: KCL 20 MEQ PACKET/ ORAL SOLN NG SCH (08:37)
[2021-02-19] MEDS: DEXAMETHASONE SOD PHOS 10 MG/1 ML VIAL IV SCH (08:37)
[2021-02-19] MEDS: DOCUSATE SODIUM LIQD 100 MG/10 ML UDC NG SCH ×2 (08:37→17:20)
[2021-02-19] MEDS: ENOXAPARIN SODIUM INJ 100 MG/ML SYR SC SCH ×2 (08:37→21:20)
[2021-02-19] MEDS: METOPROLOL TARTRATE 25 MG TAB PO SCH ×2 (08:38→21:00)
[2021-02-19] MEDS: FENTANYL 2000MCG/NS 250 250 ML IV PRN ×2 (11:39→16:14)
[2021-02-19] MEDS: ROCURONIUM 1250MG/NS 250 250 ML IV PRN (12:59)
[2021-02-19] MEDS: FLUCONAZOLE 200 MG/100 ML 100 ML IV SCH (14:37)
[2021-02-19] MEDS: KCL 20 MEQ PACKET/ ORAL SOLN PO SCH (17:20)
[2021-02-20] VITALS (26 sets, daily range): BP systolic 99–134; BP diastolic 8–82
[2021-02-20] MEDS: FENTANYL 2000MCG/NS 250 250 ML IV PRN ×4 (00:03→21:05)
[2021-02-20] MEDS: PROPOFOL IV EMULSION 10MG/ML 100 ML IV SCH ×8 (02:09→22:54)
[2021-02-20] MEDS: MIDAZOLAM HCL 5MG/ML 10ML VIAL 100 ML IV PRN ×5 (02:32→23:23)
[2021-02-20 05:52] LABS: BASOPHILS # (AUTO) 0.1 (0.0-0.1); BASOPHILS % 0.5 % (0.0-1.0); EOSINOPHILS # (AUTO) 0.2 (0.0-0.4); HEMATOCRIT 26.4 % (34.2-44.1); HEMOGLOBIN 8.1 g/dL (12.0-16.0); LYMPHOCYTES # (AUTO) 3.8 (1.0-3.2); LYMPHOCYTES % 20.3 % (18.0-39.1); MEAN CORPUSCULAR HEMOGLOBIN 30.3 pg (28-32); MEAN CORPUSCULAR HGB CONC 30.7 g/dL (31-35); MEAN CORPUSCULAR VOLUME 98.9 fL (81-99); MONOCYTES # (AUTO) 2.1 (0.2-0.8); MONOCYTES % 11.1 % (4.4-11.3); NEUTROPHILS # (AUTO) 11.3 (2.1-6.9); NEUTROPHILS % 60.9 % (38.7-80.0); PLATELET COUNT 428 x10e3/uL (140-360); RED BLOOD COUNT 2.67 x10e6/uL (3.6-5.1); RED CELL DISTRIBUTION WIDTH 16.2 % (11.7-14.4)
[2021-02-20] MEDS: CEFEPIME 1 GM in SODIUM CHLORIDE 0.9% 50ML 50 ML IV SCH ×2 (06:12→13:02)
[2021-02-20 06:29] LABS: ALBUMIN 3.1 g/dL (3.5-5.0); ALBUMIN/GLOBULIN RATIO 0.8 (0.8-2.0); ANION GAP 14.9 mmol/L (8-16); CALCIUM 8.7 mg/dL (8.4-10.2); CREATININE, SERUM 0.44 mg/dL (0.57-1.11); POTASSIUM 3.9 mmol/L (3.5-5.1)
[2021-02-20] MEDS: KCL 20 MEQ PACKET/ ORAL SOLN NG SCH (07:32)
[2021-02-20] MEDS: DOCUSATE SODIUM LIQD 100 MG/10 ML UDC NG SCH ×2 (07:32→16:57)
[2021-02-20] MEDS: METOPROLOL TARTRATE 25 MG TAB PO SCH ×2 (07:33→21:00)
[2021-02-20] MEDS: ENOXAPARIN SODIUM INJ 100 MG/ML SYR SC SCH ×2 (07:33→21:19)
[2021-02-20] MEDS: SENNOSIDES 8.6 MG TAB PO SCH (07:33)
[2021-02-20 08:47] LABS: ABG HCO3 38 mmol/L (22-26); ABG PCO2 69 mmHg (35-45); ABG PH 7.35 (7.35-7.45); ABG PO2 72 mmHg (80-105); ABG TCO2 40
[2021-02-20] MEDS: FUROSEMIDE INJ 10 MG/ML 4 ML VIAL IV SCH ×2 (09:49→21:19)
[2021-02-20] MEDS: FLUCONAZOLE 200 MG/100 ML 100 ML IV SCH (15:08)
[2021-02-20] MEDS: EYE LUBRICANT OPTH OINT 3.5GM TUBE OP SCH ×2 (15:08→16:57)
[2021-02-20] MEDS: KCL 20 MEQ PACKET/ ORAL SOLN PO SCH (16:57)
[2021-02-21] VITALS (27 sets, daily range): BP systolic 100–144; BP diastolic 56–88
[2021-02-21] MEDS: PROPOFOL IV EMULSION 10MG/ML 100 ML IV SCH ×8 (01:31→22:52)
[2021-02-21] MEDS: MIDAZOLAM HCL 5MG/ML 10ML VIAL 100 ML IV PRN ×4 (04:41→17:38)
[2021-02-21] MEDS: FENTANYL 2000MCG/NS 250 250 ML IV PRN ×3 (04:41→17:35)
[2021-02-21 06:05] LABS: BASOPHILS # (AUTO) 0.1 (0.0-0.1); BASOPHILS % 0.6 % (0.0-1.0); EOSINOPHILS # (AUTO) 0.4 (0.0-0.4); EOSINOPHILS % 1.8 % (0.0-6.0); HEMATOCRIT 28.7 % (34.2-44.1); LYMPHOCYTES # (AUTO) 3.5 (1.0-3.2); LYMPHOCYTES % 17.1 % (18.0-39.1); MEAN CORPUSCULAR HEMOGLOBIN 30.8 pg (28-32); MEAN CORPUSCULAR HGB CONC 31.4 g/dL (31-35); MEAN CORPUSCULAR VOLUME 98.3 fL (81-99); MONOCYTES # (AUTO) 2.3 (0.2-0.8); MONOCYTES % 11.2 % (4.4-11.3); PLATELET COUNT 469 x10e3/uL (140-360); RED BLOOD COUNT 2.92 x10e6/uL (3.6-5.1); RED CELL DISTRIBUTION WIDTH 16.9 % (11.7-14.4)
[2021-02-21 06:30] LABS: ALBUMIN 3.2 g/dL (3.5-5.0); ALBUMIN/GLOBULIN RATIO 0.7 (0.8-2.0); ANION GAP 16.8 mmol/L (8-16); CALCIUM 9.2 mg/dL (8.4-10.2); CREATININE, SERUM 0.45 mg/dL (0.57-1.11); POTASSIUM 3.8 mmol/L (3.5-5.1)
[2021-02-21] MEDS: SENNOSIDES 8.6 MG TAB PO SCH (07:48)
[2021-02-21] MEDS: DOCUSATE SODIUM LIQD 100 MG/10 ML UDC NG SCH ×2 (07:48→16:17)
[2021-02-21] MEDS: ENOXAPARIN SODIUM INJ 100 MG/ML SYR SC SCH ×2 (07:48→20:19)
[2021-02-21] MEDS: EYE LUBRICANT OPTH OINT 3.5GM TUBE OP SCH ×2 (07:48→16:17)
[2021-02-21] MEDS: KCL 20 MEQ PACKET/ ORAL SOLN NG SCH (07:48)
[2021-02-21] MEDS: ROCURONIUM 1250MG/NS 250 250 ML IV PRN (07:49)
[2021-02-21 08:26] LABS: ABG HCO3 36 mmol/L (22-26); ABG PCO2 49 mmHg (35-45); ABG PH 7.48 (7.35-7.45); ABG PO2 65 mmHg (80-105); ABG TCO2 38
[2021-02-21] MEDS ORDERED: SODIUM CHLORIDE 0.9% 50ML 50 ML ONE (10:04)
[2021-02-21] MEDS: METOPROLOL TARTRATE 25 MG TAB PO SCH ×2 (10:04→20:17)
[2021-02-21] MEDS ORDERED: IOPAMIDOL 370 MG/ML 200 ML INFUS..BTL INJ ONE (10:04)
[2021-02-21] MEDS: PIPERACILLIN/TAZOBACTAM 3.375 GM in SODIUM CHLORIDE 0.9% 50ML 50 ML IV SCH ×3 (10:08→22:05)
[2021-02-21] MEDS: Vancomycin IV 1 GM in SODIUM CHLORIDE 0.9% 250ML 250 ML IV SCH ×2 (10:08→20:16)
[2021-02-21 13:22] LABS: ABG HCO3 36 mmol/L (22-26); ABG PCO2 54 mmHg (35-45); ABG PH 7.43 (7.35-7.45); ABG PO2 58 mmHg (80-105); ABG TCO2 38
[2021-02-21] MEDS: KCL 20 MEQ PACKET/ ORAL SOLN PO SCH (16:17)
[2021-02-21] MEDS ORDERED: FUROSEMIDE INJ 10 MG/ML 4 ML VIAL IV ONE (16:45)
[2021-02-21] MEDS ORDERED: ACETAMINOPHEN 1000 MG/100 ML IV PRN (23:15)
[2021-02-21] MEDS ORDERED: ACETAMINOPHEN 325 MG TAB ONE (23:31)
[2021-02-22] VITALS (27 sets, daily range): BP systolic 89–142; BP diastolic 35–71
[2021-02-22] MEDS: PROPOFOL IV EMULSION 10MG/ML 100 ML IV SCH ×7 (01:30→22:50)
[2021-02-22] MEDS: PIPERACILLIN/TAZOBACTAM 3.375 GM in SODIUM CHLORIDE 0.9% 50ML 50 ML IV SCH ×4 (04:08→21:53)
[2021-02-22 06:08] LABS: BASOPHILS # (AUTO) 0.1 (0.0-0.1); BASOPHILS % 0.4 % (0.0-1.0); EOSINOPHILS # (AUTO) 0.7 (0.0-0.4); EOSINOPHILS % 3.4 % (0.0-6.0); HEMATOCRIT 27.7 % (34.2-44.1); HEMOGLOBIN 9.1 g/dL (12.0-16.0); LYMPHOCYTES # (AUTO) 2.2 (1.0-3.2); LYMPHOCYTES % 10.9 % (18.0-39.1); MEAN CORPUSCULAR HEMOGLOBIN 32.5 pg (28-32); MEAN CORPUSCULAR HGB CONC 32.9 g/dL (31-35); MEAN CORPUSCULAR VOLUME 98.9 fL (81-99); MONOCYTES % 9.7 % (4.4-11.3); NEUTROPHILS # (AUTO) 14.5 (2.1-6.9); NEUTROPHILS % 71.5 % (38.7-80.0); PLATELET COUNT 354 x10e3/uL (140-360); RED CELL DISTRIBUTION WIDTH 18.1 % (11.7-14.4)
[2021-02-22 06:35] LABS: ALBUMIN 3.1 g/dL (3.5-5.0); ALBUMIN/GLOBULIN RATIO 0.7 (0.8-2.0); ANION GAP 16.6 mmol/L (8-16); CALCIUM 8.6 mg/dL (8.4-10.2); CREATININE, SERUM 0.46 mg/dL (0.57-1.11); POTASSIUM 3.6 mmol/L (3.5-5.1)
[2021-02-22] MEDS: MIDAZOLAM HCL 5MG/ML 10ML VIAL 100 ML IV PRN ×3 (06:45→16:50)
[2021-02-22] MEDS: METOPROLOL TARTRATE 25 MG TAB PO SCH ×2 (09:00→21:53)
[2021-02-22] MEDS: SENNOSIDES 8.6 MG TAB PO SCH (09:03)
[2021-02-22] MEDS: KCL 20 MEQ PACKET/ ORAL SOLN NG SCH (09:03)
[2021-02-22] MEDS: Vancomycin IV 1 GM in SODIUM CHLORIDE 0.9% 250ML 250 ML IV SCH ×2 (09:03→21:52)
[2021-02-22] MEDS: EYE LUBRICANT OPTH OINT 3.5GM TUBE OP SCH ×2 (09:03→17:35)
[2021-02-22] MEDS: DOCUSATE SODIUM LIQD 100 MG/10 ML UDC NG SCH ×2 (09:03→17:35)
[2021-02-22] MEDS: ENOXAPARIN SODIUM INJ 100 MG/ML SYR SC SCH ×2 (09:04→21:53)
[2021-02-22 10:01] LABS: ABG HCO3 39 mmol/L (22-26); ABG PCO2 65 mmHg (35-45); ABG PH 7.39 (7.35-7.45); ABG PO2 71 mmHg (80-105); ABG TCO2 41
[2021-02-22] MEDS ORDERED: CITRATE OF MAGNESIA 300ML BOTTLE PO ONE (10:45)
[2021-02-22] MEDS ORDERED: FUROSEMIDE INJ 10 MG/ML 4 ML VIAL IV ONE (11:15)
[2021-02-22] MEDS: FENTANYL 2000MCG/NS 250 250 ML IV PRN ×2 (12:58→21:52)
[2021-02-22] MEDS: ROCURONIUM 1250MG/NS 250 250 ML IV PRN (13:01)
[2021-02-22] MEDS: KCL 20 MEQ PACKET/ ORAL SOLN PO SCH (17:35)
[2021-02-23] VITALS (29 sets, daily range): BP systolic 96–150; BP diastolic 58–71
[2021-02-23] MEDS: PROPOFOL IV EMULSION 10MG/ML 100 ML IV SCH ×8 (00:46→22:32)
[2021-02-23] MEDS: PIPERACILLIN/TAZOBACTAM 3.375 GM in SODIUM CHLORIDE 0.9% 50ML 50 ML IV SCH ×4 (03:01→21:36)
[2021-02-23] MEDS: MIDAZOLAM HCL 5MG/ML 10ML VIAL 100 ML IV PRN ×4 (03:40→18:37)
[2021-02-23] MEDS: FENTANYL 2000MCG/NS 250 250 ML IV PRN ×3 (04:52→18:37)
[2021-02-23 05:40] LABS: BASOPHILS # (AUTO) 0.1 (0.0-0.1); BASOPHILS % 0.6 % (0.0-1.0); EOSINOPHILS # (AUTO) 0.8 (0.0-0.4); EOSINOPHILS % 5.2 % (0.0-6.0); HEMATOCRIT 30.8 % (34.2-44.1); HEMOGLOBIN 9.3 g/dL (12.0-16.0); LYMPHOCYTES # (AUTO) 2.1 (1.0-3.2); LYMPHOCYTES % 13.3 % (18.0-39.1); MEAN CORPUSCULAR HEMOGLOBIN 29.9 pg (28-32); MEAN CORPUSCULAR HGB CONC 30.2 g/dL (31-35); MONOCYTES # (AUTO) 1.6 (0.2-0.8); MONOCYTES % 10.4 % (4.4-11.3); NEUTROPHILS # (AUTO) 10.7 (2.1-6.9); NEUTROPHILS % 68.1 % (38.7-80.0); PLATELET COUNT 379 x10e3/uL (140-360); RED BLOOD COUNT 3.11 x10e6/uL (3.6-5.1); RED CELL DISTRIBUTION WIDTH 16.7 % (11.7-14.4)
[2021-02-23 06:10] LABS: ANION GAP 12.2 mmol/L (8-16); CALCIUM 8.8 mg/dL (8.4-10.2); CREATININE, SERUM 0.39 mg/dL (0.57-1.11); POTASSIUM 4.2 mmol/L (3.5-5.1)
[2021-02-23] MEDS: ENOXAPARIN SODIUM INJ 100 MG/ML SYR SC SCH (09:00)
[2021-02-23] MEDS: KCL 20 MEQ PACKET/ ORAL SOLN NG SCH (09:00)
[2021-02-23] MEDS: EYE LUBRICANT OPTH OINT 3.5GM TUBE OP SCH ×2 (09:00→17:26)
[2021-02-23] MEDS: METOPROLOL TARTRATE 25 MG TAB PO SCH ×2 (09:00→21:36)
[2021-02-23] MEDS: Vancomycin IV 1 GM in SODIUM CHLORIDE 0.9% 250ML 250 ML IV SCH ×2 (09:00→21:35)
[2021-02-23] MEDS: DOCUSATE SODIUM LIQD 100 MG/10 ML UDC NG SCH ×2 (09:00→17:26)
[2021-02-23] MEDS: FUROSEMIDE INJ 10 MG/ML 4 ML VIAL IV SCH (09:00)
[2021-02-23] MEDS: SENNOSIDES 8.6 MG TAB PO SCH (09:00)
[2021-02-23 09:21] LABS: ABG PH 7.23 (7.35-7.45)
[2021-02-23 09:22] LABS: ABG HCO3 40 mmol/L (22-26); ABG PCO2 96 mmHg (35-45); ABG PO2 99 mmHg (80-105); ABG TCO2 43
[2021-02-23] MEDS: LACTULOSE SYRUP 20 GM/30 ML UDC PO PRN (12:24)
[2021-02-23] MEDS: METOPROLOL TARTRATE INJ 1 MG/ML VIAL IV PRN (12:24)
[2021-02-23] MEDS: BISACODYL 10 MG SUPP PR PRN (14:28)
[2021-02-23] MEDS ORDERED: VECURONIUM BROMIDE FOR INJ 20 MG VIAL ONE (15:29)
[2021-02-23] MEDS: KCL 20 MEQ PACKET/ ORAL SOLN PO SCH (17:27)
[2021-02-23] MEDS ORDERED: ENOXAPARIN SODIUM INJ 100 MG/ML SYR SC SCH (21:00)
[2021-02-24] VITALS (25 sets, daily range): BP systolic 103–143; BP diastolic 54–79
[2021-02-24] MEDS: PROPOFOL IV EMULSION 10MG/ML 100 ML IV SCH ×3 (00:01→06:22)
[2021-02-24] MEDS: MIDAZOLAM HCL 5MG/ML 10ML VIAL 100 ML IV PRN ×5 (00:40→21:32)
[2021-02-24] MEDS: PIPERACILLIN/TAZOBACTAM 3.375 GM in SODIUM CHLORIDE 0.9% 50ML 50 ML IV SCH ×4 (04:01→21:58)
[2021-02-24 07:14] LABS: BASOPHILS % 0.3 % (0.0-1.0); EOSINOPHILS # (AUTO) 0.6 (0.0-0.4); EOSINOPHILS % 4.4 % (0.0-6.0); HEMATOCRIT 26.6 % (34.2-44.1); LYMPHOCYTES # (AUTO) 1.6 (1.0-3.2); LYMPHOCYTES % 11.3 % (18.0-39.1); MEAN CORPUSCULAR HEMOGLOBIN 29.4 pg (28-32); MEAN CORPUSCULAR HGB CONC 30.1 g/dL (31-35); MEAN CORPUSCULAR VOLUME 97.8 fL (81-99); MONOCYTES # (AUTO) 1.7 (0.2-0.8); MONOCYTES % 12.5 % (4.4-11.3); NEUTROPHILS # (AUTO) 9.7 (2.1-6.9); NEUTROPHILS % 70.1 % (38.7-80.0); PLATELET COUNT 340 x10e3/uL (140-360); RED BLOOD COUNT 2.72 x10e6/uL (3.6-5.1); RED CELL DISTRIBUTION WIDTH 16.1 % (11.7-14.4)
[2021-02-24 07:37] LABS: ALBUMIN 2.8 g/dL (3.5-5.0); ALBUMIN/GLOBULIN RATIO 0.7 (0.8-2.0); ANION GAP 16.5 mmol/L (8-16); CALCIUM 8.9 mg/dL (8.4-10.2); CREATININE, SERUM 0.42 mg/dL (0.57-1.11); POTASSIUM 4.5 mmol/L (3.5-5.1)
[2021-02-24 08:49] LABS: ABG PH 7.27 (7.35-7.45)
[2021-02-24] MEDS: KCL 20 MEQ PACKET/ ORAL SOLN NG SCH (08:49)
[2021-02-24] MEDS: EYE LUBRICANT OPTH OINT 3.5GM TUBE OP SCH ×2 (08:49→16:16)
[2021-02-24] MEDS: FUROSEMIDE INJ 10 MG/ML 4 ML VIAL IV SCH ×2 (08:49→16:15)
[2021-02-24] MEDS: Vancomycin IV 1 GM in SODIUM CHLORIDE 0.9% 250ML 250 ML IV SCH ×2 (08:49→21:57)
[2021-02-24] MEDS: DOCUSATE SODIUM LIQD 100 MG/10 ML UDC NG SCH ×2 (08:49→16:16)
[2021-02-24 08:50] LABS: ABG HCO3 38 mmol/L (22-26); ABG PCO2 83 mmHg (35-45); ABG PO2 119 mmHg (80-105); ABG TCO2 41
[2021-02-24] MEDS: METOPROLOL TARTRATE 25 MG TAB PO SCH ×2 (08:50→21:58)
[2021-02-24] MEDS: SENNOSIDES 8.6 MG TAB PO SCH (08:50)
[2021-02-24] MEDS: FENTANYL 2000MCG/NS 250 250 ML IV PRN ×3 (09:17→22:47)
[2021-02-24] MEDS ORDERED: PROPOFOL IV EMULSION 100 ML IV SCH (09:30)
[2021-02-24] MEDS ORDERED: PROPOFOL IV EMULSION 50 ML IV ONE ×2 (09:36)
[2021-02-24] MEDS ORDERED: PROPOFOL IV EMULSION 50 ML IV PRN (11:30)
[2021-02-24 13:07] LABS: ABG PH 7.35 (7.35-7.45)
[2021-02-24 13:08] LABS: ABG HCO3 40 mmol/L (22-26); ABG PCO2 73 mmHg (35-45); ABG PO2 121 mmHg (80-105); ABG TCO2 42
[2021-02-24] MEDS: ENOXAPARIN INJ 80 MG/0.8 ML SYR SC SCH (15:59)
[2021-02-24] MEDS: KCL 20 MEQ PACKET/ ORAL SOLN PO SCH (16:16)
[2021-02-24] MEDS: PROPOFOL IV EMULSION 50 ML IV PRN ×3 (20:18→23:25)
[2021-02-25] VITALS (30 sets, daily range): BP systolic 106–143; BP diastolic 55–83
[2021-02-25] MEDS: PROPOFOL IV EMULSION 50 ML IV PRN ×6 (01:16→14:07)
[2021-02-25] MEDS: MIDAZOLAM HCL 5MG/ML 10ML VIAL 100 ML IV PRN ×4 (03:08→20:00)
[2021-02-25] MEDS: PIPERACILLIN/TAZOBACTAM 3.375 GM in SODIUM CHLORIDE 0.9% 50ML 50 ML IV SCH ×4 (04:52→22:46)
[2021-02-25] MEDS: ROCURONIUM 1250MG/NS 250 250 ML IV PRN ×2 (04:52→23:26)
[2021-02-25] MEDS: FENTANYL 2000MCG/NS 250 250 ML IV PRN ×2 (05:56→20:07)
[2021-02-25 06:30] LABS: BASOPHILS # (AUTO) 0.1 (0.0-0.1); BASOPHILS % 0.7 % (0.0-1.0); EOSINOPHILS # (AUTO) 0.7 (0.0-0.4); EOSINOPHILS % 4.8 % (0.0-6.0); HEMATOCRIT 26.9 % (34.2-44.1); HEMOGLOBIN 7.8 g/dL (12.0-16.0); LYMPHOCYTES # (AUTO) 1.1 (1.0-3.2); LYMPHOCYTES % 7.4 % (18.0-39.1); MONOCYTES # (AUTO) 1.5 (0.2-0.8); MONOCYTES % 10.4 % (4.4-11.3); NEUTROPHILS # (AUTO) 10.8 (2.1-6.9); NEUTROPHILS % 75.4 % (38.7-80.0); PLATELET COUNT 375 x10e3/uL (140-360); RED BLOOD COUNT 2.69 x10e6/uL (3.6-5.1); RED CELL DISTRIBUTION WIDTH 16.4 % (11.7-14.4)
[2021-02-25] MEDS ORDERED: LIDOCAINE 1% W/EPINEPHRINE 20 ML VIAL ONE (06:45)
[2021-02-25] MEDS ORDERED: BUPIVACAINE 0.25% 30ML SDV ONE (06:45)
[2021-02-25 06:56] LABS: ALBUMIN 2.7 g/dL (3.5-5.0); ALBUMIN/GLOBULIN RATIO 0.7 (0.8-2.0); ANION GAP 15.1 mmol/L (8-16); CREATININE, SERUM 0.38 mg/dL (0.57-1.11); POTASSIUM 4.1 mmol/L (3.5-5.1)
[2021-02-25 08:19] LABS: ABG PH 7.27 (7.35-7.45)
[2021-02-25 08:20] LABS: ABG HCO3 42 mmol/L (22-26); ABG PCO2 91 mmHg (35-45); ABG PO2 71 mmHg (80-105)
[2021-02-25 08:21] LABS: ABG TCO2 45
[2021-02-25 08:30] LABS: ABG PCO2 105 mmHg (35-45); ABG PH 7.23 (7.35-7.45)
[2021-02-25 08:31] LABS: ABG HCO3 43 mmol/L (22-26); ABG PO2 44 mmHg (80-105); ABG TCO2 46
[2021-02-25] MEDS ORDERED: HEPARIN SOD/SOD CHLORIDE 1,000 ML ONE (08:54)
[2021-02-25] MEDS ORDERED: Morphine 2mg Syringe 2 MG/ML SYR IV ONE (10:30)
[2021-02-25] MEDS: KCL 20 MEQ PACKET/ ORAL SOLN NG SCH (10:50)
[2021-02-25] MEDS: Vancomycin IV 1 GM in SODIUM CHLORIDE 0.9% 250ML 250 ML IV SCH ×2 (10:50→20:30)
[2021-02-25] MEDS: METOPROLOL TARTRATE 25 MG TAB PO SCH ×2 (10:50→20:53)
[2021-02-25] MEDS: FUROSEMIDE INJ 10 MG/ML 4 ML VIAL IV SCH ×2 (10:50→16:42)
[2021-02-25] MEDS: EYE LUBRICANT OPTH OINT 3.5GM TUBE OP SCH ×2 (10:50→16:42)
[2021-02-25] MEDS: SENNOSIDES 8.6 MG TAB PO SCH (10:50)
[2021-02-25] MEDS: DOCUSATE SODIUM LIQD 100 MG/10 ML UDC NG SCH ×2 (10:50→16:42)
[2021-02-25] MEDS: PROPOFOL IV EMULSION 10MG/ML 100 ML IV PRN ×2 (12:30→19:30)
[2021-02-25 13:33] LABS: ABG PCO2 127 mmHg (35-45); ABG PH 7.13 (7.35-7.45)
[2021-02-25 13:34] LABS: ABG HCO3 43 mmol/L (22-26); ABG PO2 83 mmHg (80-105); ABG TCO2 46
[2021-02-25] MEDS: KCL 20 MEQ PACKET/ ORAL SOLN PO SCH (16:44)
[2021-02-25] MEDS: ENOXAPARIN INJ 80 MG/0.8 ML SYR SC SCH (16:44)
[2021-02-25 17:38] LABS: ABG PCO2 130 mmHg (35-45); ABG PH 7.17 (7.35-7.45); ABG PO2 79 mmHg (80-105)
[2021-02-25 17:39] LABS: ABG HCO3 47 mmol/L (22-26); ABG TCO2 50
[2021-02-25] MEDS ORDERED: SODIUM BICARBONATE 8.4% SYRING 50 ML ONE (18:36)
[2021-02-25] MEDS ORDERED: SODIUM BICARBONATE 8.4% INJ 50 ML SYR IV STA (20:50)
[2021-02-25 21:05] LABS: ABG PCO2 126 mmHg (35-45); ABG PH 7.17 (7.35-7.45); ABG PO2 81 mmHg (80-105)
[2021-02-25 21:06] LABS: ABG HCO3 46 mmol/L (22-26); ABG TCO2 50
[2021-02-25] MEDS ORDERED: LIDOCAINE 2%/ EPINEPHRINE 20ML MDV ONE (21:44)
[2021-02-25 23:58] LABS: ABG PCO2 95 mmHg (35-45)
[2021-02-25 23:59] LABS: ABG HCO3 47 mmol/L (22-26); ABG PO2 118 mmHg (80-105); ABG TCO2 > 50
[2021-02-26] VITALS (32 sets, daily range): BP systolic 105–145; BP diastolic 52–83
[2021-02-26] MEDS: PROPOFOL IV EMULSION 10MG/ML 100 ML IV PRN ×5 (00:30→18:35)
[2021-02-26] MEDS: MIDAZOLAM HCL 5MG/ML 10ML VIAL 100 ML IV PRN ×4 (02:30→18:36)
[2021-02-26] MEDS: FENTANYL 2000MCG/NS 250 250 ML IV PRN ×2 (03:30→09:04)
[2021-02-26] MEDS: PIPERACILLIN/TAZOBACTAM 3.375 GM in SODIUM CHLORIDE 0.9% 50ML 50 ML IV SCH ×4 (04:00→22:51)
[2021-02-26] MEDS: ENOXAPARIN INJ 80 MG/0.8 ML SYR SC SCH ×2 (05:00→16:25)
[2021-02-26 06:07] LABS: BASOPHILS # (AUTO) 0.1 (0.0-0.1); BASOPHILS % 0.5 % (0.0-1.0); EOSINOPHILS # (AUTO) 0.1 (0.0-0.4); EOSINOPHILS % 0.7 % (0.0-6.0); HEMATOCRIT 23.5 % (34.2-44.1); HEMOGLOBIN 7.1 g/dL (12.0-16.0); LYMPHOCYTES # (AUTO) 1.3 (1.0-3.2); LYMPHOCYTES % 8.5 % (18.0-39.1); MEAN CORPUSCULAR HEMOGLOBIN 30.3 pg (28-32); MEAN CORPUSCULAR HGB CONC 30.2 g/dL (31-35); MEAN CORPUSCULAR VOLUME 100.4 fL (81-99); MONOCYTES # (AUTO) 1.5 (0.2-0.8); MONOCYTES % 10.3 % (4.4-11.3); NEUTROPHILS # (AUTO) 11.6 (2.1-6.9); PLATELET COUNT 379 x10e3/uL (140-360); RED BLOOD COUNT 2.34 x10e6/uL (3.6-5.1); RED CELL DISTRIBUTION WIDTH 16.1 % (11.7-14.4)
[2021-02-26 06:33] LABS: ALBUMIN 2.6 g/dL (3.5-5.0); ALBUMIN/GLOBULIN RATIO 0.7 (0.8-2.0); CALCIUM 8.7 mg/dL (8.4-10.2); CREATININE, SERUM 0.44 mg/dL (0.57-1.11)
[2021-02-26 08:47] LABS: ABG PCO2 82 mmHg (35-45); ABG PH 7.38 (7.35-7.45); ABG PO2 117 mmHg (80-105)
[2021-02-26 08:48] LABS: ABG HCO3 48 mmol/L (22-26); ABG TCO2 50
[2021-02-26] MEDS: SENNOSIDES 8.6 MG TAB PO SCH (09:00)
[2021-02-26] MEDS: DOCUSATE SODIUM LIQD 100 MG/10 ML UDC NG SCH ×2 (09:00→16:25)
[2021-02-26] MEDS: KCL 20 MEQ PACKET/ ORAL SOLN NG SCH (09:03)
[2021-02-26] MEDS: EYE LUBRICANT OPTH OINT 3.5GM TUBE OP SCH ×2 (09:03→16:25)
[2021-02-26] MEDS: FUROSEMIDE INJ 10 MG/ML 4 ML VIAL IV SCH ×2 (09:03→16:25)
[2021-02-26] MEDS: Vancomycin IV 1 GM in SODIUM CHLORIDE 0.9% 250ML 250 ML IV SCH (09:03)
[2021-02-26] MEDS: METOPROLOL TARTRATE 25 MG TAB PO SCH ×2 (09:04→22:00)
[2021-02-26 12:28] LABS: ABG PH 7.37 (7.35-7.45)
[2021-02-26 12:29] LABS: ABG HCO3 50 mmol/L (22-26); ABG PCO2 86 mmHg (35-45); ABG PO2 97 mmHg (80-105); ABG TCO2 50
[2021-02-26] MEDS: KCL 20 MEQ PACKET/ ORAL SOLN PO SCH (16:25)
[2021-02-26] MEDS: ROCURONIUM 1250MG/NS 250 250 ML IV PRN (18:36)
[2021-02-27] VITALS (30 sets, daily range): BP systolic 108–142; BP diastolic 52–74
[2021-02-27] MEDS: MIDAZOLAM HCL 5MG/ML 10ML VIAL 100 ML IV PRN ×5 (00:33→21:42)
[2021-02-27] MEDS: PIPERACILLIN/TAZOBACTAM 3.375 GM in SODIUM CHLORIDE 0.9% 50ML 50 ML IV SCH ×4 (04:01→21:40)
[2021-02-27] MEDS: ENOXAPARIN INJ 80 MG/0.8 ML SYR SC SCH ×2 (05:11→16:49)
[2021-02-27] MEDS: FENTANYL 2000MCG/NS 250 250 ML IV PRN (05:56)
[2021-02-27 06:00] LABS: BASOPHILS # (AUTO) 0.1 (0.0-0.1); BASOPHILS % 0.8 % (0.0-1.0); EOSINOPHILS # (AUTO) 0.7 (0.0-0.4); EOSINOPHILS % 4.6 % (0.0-6.0); HEMOGLOBIN 7.3 g/dL (12.0-16.0); LYMPHOCYTES # (AUTO) 2.1 (1.0-3.2); LYMPHOCYTES % 14.3 % (18.0-39.1); MEAN CORPUSCULAR HEMOGLOBIN 29.1 pg (28-32); MEAN CORPUSCULAR HGB CONC 29.2 g/dL (31-35); MEAN CORPUSCULAR VOLUME 99.6 fL (81-99); NEUTROPHILS # (AUTO) 9.4 (2.1-6.9); NEUTROPHILS % 64.6 % (38.7-80.0); PLATELET COUNT 411 x10e3/uL (140-360); RED BLOOD COUNT 2.51 x10e6/uL (3.6-5.1); RED CELL DISTRIBUTION WIDTH 16.5 % (11.7-14.4)
[2021-02-27 06:39] LABS: ALBUMIN 2.5 g/dL (3.5-5.0); ALBUMIN/GLOBULIN RATIO 0.6 (0.8-2.0); CALCIUM 8.9 mg/dL (8.4-10.2); CREATININE, SERUM 0.37 mg/dL (0.57-1.11); POTASSIUM 3.6 mmol/L (3.5-5.1)
[2021-02-27 06:43] LABS: ANION GAP 16.6 mmol/L (8-16)
[2021-02-27] MEDS: FUROSEMIDE INJ 10 MG/ML 4 ML VIAL IV SCH (09:06)
[2021-02-27] MEDS: DOCUSATE SODIUM LIQD 100 MG/10 ML UDC NG SCH ×2 (09:07→16:49)
[2021-02-27] MEDS: KCL 20 MEQ PACKET/ ORAL SOLN NG SCH (09:07)
[2021-02-27] MEDS: METOPROLOL TARTRATE 25 MG TAB PO SCH ×2 (09:07→21:40)
[2021-02-27] MEDS: EYE LUBRICANT OPTH OINT 3.5GM TUBE OP SCH ×2 (09:07→16:22)
[2021-02-27] MEDS: SENNOSIDES 8.6 MG TAB PO SCH (09:07)
[2021-02-27 09:11] LABS: ABG PH 7.45 (7.35-7.45)
[2021-02-27 09:12] LABS: ABG HCO3 47 mmol/L (22-26); ABG PCO2 68 mmHg (35-45); ABG PO2 95 mmHg (80-105); ABG TCO2 49
[2021-02-27] MEDS: PROPOFOL IV EMULSION 10MG/ML 100 ML IV PRN ×4 (11:22→22:35)
[2021-02-27] MEDS: FENTANYL 2000MCG/NS 250 250 ML IV SCH ×2 (12:05→20:15)
[2021-02-27] MEDS ORDERED: ACETAZOLAMIDE SODIUM 500 MG/VIAL IV ONE (14:00)
[2021-02-27 15:43] LABS: ABG PH 7.39 (7.35-7.45)
[2021-02-27 15:45] LABS: ABG HCO3 43 mmol/L (22-26); ABG PCO2 85 mmHg (35-45); ABG PO2 86 mmHg (80-105); ABG TCO2 45
[2021-02-27] MEDS: KCL 20 MEQ PACKET/ ORAL SOLN PO SCH (16:49)
[2021-02-28] VITALS (26 sets, daily range): BP systolic 58–141; BP diastolic 54–70
[2021-02-28] MEDS: MIDAZOLAM HCL 5MG/ML 10ML VIAL 100 ML IV PRN ×4 (02:44→22:30)
[2021-02-28] MEDS: FENTANYL 2000MCG/NS 250 250 ML IV SCH ×4 (02:45→23:05)
[2021-02-28] MEDS: PROPOFOL IV EMULSION 10MG/ML 100 ML IV PRN ×7 (02:47→23:12)
[2021-02-28] MEDS: PIPERACILLIN/TAZOBACTAM 3.375 GM in SODIUM CHLORIDE 0.9% 50ML 50 ML IV SCH ×4 (04:05→21:48)
[2021-02-28] MEDS: ENOXAPARIN INJ 80 MG/0.8 ML SYR SC SCH ×2 (04:12→17:19)
[2021-02-28 05:30] LABS: BASOPHILS # (AUTO) 0.1 (0.0-0.1); BASOPHILS % 0.6 % (0.0-1.0); EOSINOPHILS # (AUTO) 0.9 (0.0-0.4); HEMATOCRIT 28.6 % (34.2-44.1); HEMOGLOBIN 8.6 g/dL (12.0-16.0); LYMPHOCYTES # (AUTO) 1.6 (1.0-3.2); LYMPHOCYTES % 11.2 % (18.0-39.1); MEAN CORPUSCULAR HEMOGLOBIN 29.4 pg (28-32); MEAN CORPUSCULAR HGB CONC 30.1 g/dL (31-35); MEAN CORPUSCULAR VOLUME 97.6 fL (81-99); MONOCYTES # (AUTO) 1.8 (0.2-0.8); MONOCYTES % 12.5 % (4.4-11.3); NEUTROPHILS # (AUTO) 9.6 (2.1-6.9); NEUTROPHILS % 67.1 % (38.7-80.0); PLATELET COUNT 438 x10e3/uL (140-360); RED BLOOD COUNT 2.93 x10e6/uL (3.6-5.1); RED CELL DISTRIBUTION WIDTH 16.6 % (11.7-14.4)
[2021-02-28] MEDS: ROCURONIUM 1250MG/NS 250 250 ML IV PRN (05:44)
[2021-02-28 06:16] LABS: ALBUMIN 2.7 g/dL (3.5-5.0); ALBUMIN/GLOBULIN RATIO 0.6 (0.8-2.0); ANION GAP 16.1 mmol/L (8-16); CREATININE, SERUM 0.39 mg/dL (0.57-1.11); POTASSIUM 4.1 mmol/L (3.5-5.1)
[2021-02-28 09:04] LABS: ABG HCO3 32 mmol/L (22-26); ABG PCO2 55 mmHg (35-45); ABG PH 7.37 (7.35-7.45); ABG PO2 85 mmHg (80-105); ABG TCO2 33
[2021-02-28] MEDS: SENNOSIDES 8.6 MG TAB PO SCH (09:14)
[2021-02-28] MEDS: EYE LUBRICANT OPTH OINT 3.5GM TUBE OP SCH ×2 (09:14→17:19)
[2021-02-28] MEDS: DOCUSATE SODIUM LIQD 100 MG/10 ML UDC NG SCH ×2 (09:14→17:19)
[2021-02-28] MEDS: KCL 20 MEQ PACKET/ ORAL SOLN NG SCH (09:14)
[2021-02-28] MEDS: METOPROLOL TARTRATE 25 MG TAB PO SCH ×2 (09:15→21:48)
[2021-02-28] MEDS ORDERED: FUROSEMIDE INJ 10 MG/ML 4 ML VIAL ONE (10:40)
[2021-02-28] MEDS: KCL 20 MEQ PACKET/ ORAL SOLN PO SCH (17:19)
[2021-03-01] VITALS (24 sets, daily range): BP systolic 75–132; BP diastolic 47–121
[2021-03-01] MEDS: PROPOFOL IV EMULSION 10MG/ML 100 ML IV PRN ×5 (02:45→22:01)
[2021-03-01] MEDS: MIDAZOLAM HCL 5MG/ML 10ML VIAL 100 ML IV PRN ×3 (03:38→19:30)
[2021-03-01] MEDS: PIPERACILLIN/TAZOBACTAM 3.375 GM in SODIUM CHLORIDE 0.9% 50ML 50 ML IV SCH (04:42)
[2021-03-01] MEDS: ENOXAPARIN SODIUM INJ 100 MG/ML SYR SC SCH ×2 (05:32→17:36)
[2021-03-01] MEDS: FENTANYL 2000MCG/NS 250 250 ML IV SCH ×3 (06:05→20:18)
[2021-03-01 06:26] LABS: BASOPHILS # (AUTO) 0.1 (0.0-0.1); BASOPHILS % 0.8 % (0.0-1.0); EOSINOPHILS # (AUTO) 0.9 (0.0-0.4); EOSINOPHILS % 7.5 % (0.0-6.0); HEMATOCRIT 27.9 % (34.2-44.1); HEMOGLOBIN 8.4 g/dL (12.0-16.0); LYMPHOCYTES # (AUTO) 1.9 (1.0-3.2); MEAN CORPUSCULAR HEMOGLOBIN 29.4 pg (28-32); MEAN CORPUSCULAR HGB CONC 30.1 g/dL (31-35); MEAN CORPUSCULAR VOLUME 97.6 fL (81-99); MONOCYTES # (AUTO) 1.3 (0.2-0.8); NEUTROPHILS # (AUTO) 7.4 (2.1-6.9); NEUTROPHILS % 62.1 % (38.7-80.0); PLATELET COUNT 425 x10e3/uL (140-360); RED BLOOD COUNT 2.86 x10e6/uL (3.6-5.1); RED CELL DISTRIBUTION WIDTH 17.2 % (11.7-14.4)
[2021-03-01 06:46] LABS: ALBUMIN 2.6 g/dL (3.5-5.0); ALBUMIN/GLOBULIN RATIO 0.6 (0.8-2.0); ANION GAP 16.9 mmol/L (8-16); CALCIUM 9.1 mg/dL (8.4-10.2); CREATININE, SERUM 0.37 mg/dL (0.57-1.11); POTASSIUM 3.9 mmol/L (3.5-5.1)
[2021-03-01] MEDS: SENNOSIDES 8.6 MG TAB PO SCH (08:26)
[2021-03-01] MEDS: METOPROLOL TARTRATE 25 MG TAB PO SCH ×2 (08:26→21:48)
[2021-03-01] MEDS: KCL 20 MEQ PACKET/ ORAL SOLN NG SCH (08:27)
[2021-03-01] MEDS: DOCUSATE SODIUM LIQD 100 MG/10 ML UDC NG SCH ×2 (08:28→17:36)
[2021-03-01] MEDS: EYE LUBRICANT OPTH OINT 3.5GM TUBE OP SCH ×2 (08:28→17:36)
[2021-03-01 08:46] LABS: ABG HCO3 34 mmol/L (22-26); ABG PCO2 55 mmHg (35-45); ABG PH 7.41 (7.35-7.45); ABG PO2 93 mmHg (80-105); ABG TCO2 36
[2021-03-01 17:21] LABS: ABG HCO3 33 mmol/L (22-26); ABG PCO2 52 mmHg (35-45); ABG PH 7.42 (7.35-7.45); ABG PO2 68 mmHg (80-105); ABG TCO2 35
[2021-03-01] MEDS: ACETAMINOPHEN 325 MG TAB PO PRN (22:59)
[2021-03-02] VITALS (25 sets, daily range): BP systolic 91–154; BP diastolic 50–71
[2021-03-02] MEDS: PROPOFOL IV EMULSION 10MG/ML 100 ML IV PRN ×4 (00:31→21:41)
[2021-03-02] MEDS: MIDAZOLAM HCL 5MG/ML 10ML VIAL 100 ML IV PRN ×4 (01:01→22:10)
[2021-03-02] MEDS: FENTANYL 2000MCG/NS 250 250 ML IV SCH ×2 (03:16→16:58)
[2021-03-02] MEDS: ENOXAPARIN SODIUM INJ 100 MG/ML SYR SC SCH ×2 (05:00→16:21)
[2021-03-02] MEDS ORDERED: PROPOFOL IV EMULSION 50 ML IV ONE (06:28)
[2021-03-02 06:31] LABS: BASOPHILS # (AUTO) 0.1 (0.0-0.1); BASOPHILS % 0.5 % (0.0-1.0); EOSINOPHILS # (AUTO) 0.9 (0.0-0.4); EOSINOPHILS % 5.9 % (0.0-6.0); HEMATOCRIT 29.1 % (34.2-44.1); HEMOGLOBIN 8.9 g/dL (12.0-16.0); LYMPHOCYTES # (AUTO) 1.6 (1.0-3.2); LYMPHOCYTES % 10.4 % (18.0-39.1); MEAN CORPUSCULAR HGB CONC 30.6 g/dL (31-35); MONOCYTES # (AUTO) 1.7 (0.2-0.8); NEUTROPHILS # (AUTO) 10.7 (2.1-6.9); NEUTROPHILS % 70.7 % (38.7-80.0); PLATELET COUNT 383 x10e3/uL (140-360); RED BLOOD COUNT 2.97 x10e6/uL (3.6-5.1); RED CELL DISTRIBUTION WIDTH 17.6 % (11.7-14.4)
[2021-03-02 06:58] LABS: ALBUMIN 2.6 g/dL (3.5-5.0); ALBUMIN/GLOBULIN RATIO 0.6 (0.8-2.0); ANION GAP 20.2 mmol/L (8-16); CREATININE, SERUM 0.42 mg/dL (0.57-1.11); POTASSIUM 4.2 mmol/L (3.5-5.1)
[2021-03-02] MEDS ORDERED: PROPOFOL IV EMULSION 100 ML IV ONE (07:37)
[2021-03-02] MEDS: EYE LUBRICANT OPTH OINT 3.5GM TUBE OP SCH ×2 (08:06→16:21)
[2021-03-02] MEDS: SENNOSIDES 8.6 MG TAB PO SCH (08:06)
[2021-03-02] MEDS: DOCUSATE SODIUM LIQD 100 MG/10 ML UDC NG SCH ×2 (08:06→16:21)
[2021-03-02] MEDS ORDERED: PROPOFOL IV ONE (08:26)
[2021-03-02] MEDS: METOPROLOL TARTRATE 25 MG TAB PO SCH ×2 (09:00→21:41)
[2021-03-02 09:33] LABS: ABG PH 7.29 (7.35-7.45)
[2021-03-02 09:34] LABS: ABG HCO3 36 mmol/L (22-26); ABG PCO2 75 mmHg (35-45); ABG PO2 98 mmHg (80-105); ABG TCO2 38
[2021-03-02] MEDS ORDERED: NOREPINEPHRINE 8 MG/D5W 250 ML 250 ML IV SCH (10:15)
[2021-03-03] VITALS (28 sets, daily range): BP systolic 106–129; BP diastolic 53–70
[2021-03-03] MEDS: FENTANYL 2000MCG/NS 250 250 ML IV SCH ×4 (00:35→21:15)
[2021-03-03] MEDS: PROPOFOL IV EMULSION 10MG/ML 100 ML IV PRN ×5 (01:33→22:34)
[2021-03-03] MEDS: MIDAZOLAM HCL 5MG/ML 10ML VIAL 100 ML IV PRN ×3 (02:47→14:24)
[2021-03-03] MEDS: ENOXAPARIN SODIUM INJ 100 MG/ML SYR SC SCH ×2 (04:56→18:29)
[2021-03-03 06:49] LABS: BASOPHILS # (AUTO) 0.1 (0.0-0.1); BASOPHILS % 0.4 % (0.0-1.0); EOSINOPHILS # (AUTO) 1.1 (0.0-0.4); EOSINOPHILS % 7.3 % (0.0-6.0); HEMATOCRIT 27.7 % (34.2-44.1); HEMOGLOBIN 8.3 g/dL (12.0-16.0); LYMPHOCYTES # (AUTO) 1.7 (1.0-3.2); LYMPHOCYTES % 11.2 % (18.0-39.1); MEAN CORPUSCULAR HEMOGLOBIN 29.1 pg (28-32); MEAN CORPUSCULAR VOLUME 97.2 fL (81-99); MONOCYTES # (AUTO) 1.8 (0.2-0.8); NEUTROPHILS # (AUTO) 10.1 (2.1-6.9); NEUTROPHILS % 67.9 % (38.7-80.0); PLATELET COUNT 301 x10e3/uL (140-360); RED BLOOD COUNT 2.85 x10e6/uL (3.6-5.1); RED CELL DISTRIBUTION WIDTH 17.2 % (11.7-14.4)
[2021-03-03 07:18] LABS: ALBUMIN 2.3 g/dL (3.5-5.0); ALBUMIN/GLOBULIN RATIO 0.5 (0.8-2.0); ANION GAP 16.2 mmol/L (8-16); CALCIUM 8.8 mg/dL (8.4-10.2); CREATININE, SERUM 0.38 mg/dL (0.57-1.11); POTASSIUM 4.2 mmol/L (3.5-5.1)
[2021-03-03] MEDS: METOPROLOL TARTRATE 25 MG TAB PO SCH ×2 (08:52→21:38)
[2021-03-03] MEDS: EYE LUBRICANT OPTH OINT 3.5GM TUBE OP SCH ×2 (08:53→17:30)
[2021-03-03 09:00] LABS: ABG PCO2 87 mmHg (35-45); ABG PH 7.25 (7.35-7.45)
[2021-03-03 09:01] LABS: ABG HCO3 38 mmol/L (22-26); ABG PO2 72 mmHg (80-105); ABG TCO2 41
[2021-03-03] MEDS: SENNOSIDES 8.6 MG TAB PO SCH (09:24)
[2021-03-03] MEDS: DOCUSATE SODIUM LIQD 100 MG/10 ML UDC NG SCH ×2 (09:24→18:29)
[2021-03-04] VITALS (25 sets, daily range): BP systolic 98–128; BP diastolic 51–75
[2021-03-04] MEDS: MIDAZOLAM HCL 5MG/ML 10ML VIAL 100 ML IV PRN ×5 (01:18→20:27)
[2021-03-04] MEDS: METOPROLOL TARTRATE INJ 1 MG/ML VIAL IV PRN (01:49)
[2021-03-04] MEDS: PROPOFOL IV EMULSION 10MG/ML 100 ML IV PRN ×8 (02:00→22:45)
[2021-03-04] MEDS: FENTANYL 2000MCG/NS 250 250 ML IV SCH ×2 (04:38→10:43)
[2021-03-04] MEDS: ENOXAPARIN SODIUM INJ 100 MG/ML SYR SC SCH ×2 (05:24→18:03)
[2021-03-04 06:35] LABS: BASOPHILS # (AUTO) 0.1 (0.0-0.1); BASOPHILS % 0.4 % (0.0-1.0); EOSINOPHILS # (AUTO) 0.6 (0.0-0.4); EOSINOPHILS % 3.8 % (0.0-6.0); HEMATOCRIT 27.2 % (34.2-44.1); HEMOGLOBIN 8.3 g/dL (12.0-16.0); LYMPHOCYTES # (AUTO) 1.8 (1.0-3.2); MEAN CORPUSCULAR HEMOGLOBIN 30.2 pg (28-32); MEAN CORPUSCULAR HGB CONC 30.5 g/dL (31-35); MEAN CORPUSCULAR VOLUME 98.9 fL (81-99); NEUTROPHILS # (AUTO) 11.5 (2.1-6.9); NEUTROPHILS % 70.5 % (38.7-80.0); PLATELET COUNT 290 x10e3/uL (140-360); RED BLOOD COUNT 2.75 x10e6/uL (3.6-5.1); RED CELL DISTRIBUTION WIDTH 16.8 % (11.7-14.4)
[2021-03-04 07:02] LABS: ALBUMIN 2.5 g/dL (3.5-5.0); ALBUMIN/GLOBULIN RATIO 0.5 (0.8-2.0); ANION GAP 16.1 mmol/L (8-16); CALCIUM 9.5 mg/dL (8.4-10.2); CREATININE, SERUM 0.42 mg/dL (0.57-1.11); POTASSIUM 5.1 mmol/L (3.5-5.1)
[2021-03-04 09:02] LABS: ABG HCO3 40 mmol/L (22-26); ABG PCO2 104 mmHg (35-45); ABG PO2 78 mmHg (80-105); ABG TCO2 43
[2021-03-04] MEDS: DOCUSATE SODIUM LIQD 100 MG/10 ML UDC NG SCH ×2 (11:54→18:03)
[2021-03-04] MEDS: METOPROLOL TARTRATE 25 MG TAB PO SCH ×2 (11:54→22:00)
[2021-03-04] MEDS: SENNOSIDES 8.6 MG TAB PO SCH (11:54)
[2021-03-04] MEDS: EYE LUBRICANT OPTH OINT 3.5GM TUBE OP SCH ×2 (11:54→18:03)
[2021-03-05] VITALS (24 sets, daily range): BP systolic 94–141; BP diastolic 5–81
[2021-03-05] MEDS: PROPOFOL IV EMULSION 10MG/ML 100 ML IV PRN ×4 (00:35→07:41)
[2021-03-05] MEDS: FENTANYL 2000MCG/NS 250 250 ML IV SCH ×2 (00:40→14:46)
[2021-03-05] MEDS: MIDAZOLAM HCL 5MG/ML 10ML VIAL 100 ML IV PRN ×3 (01:35→11:48)
[2021-03-05] MEDS: ENOXAPARIN SODIUM INJ 100 MG/ML SYR SC SCH ×2 (06:00→16:35)
[2021-03-05 06:30] LABS: BASOPHILS # (AUTO) 0.1 (0.0-0.1); BASOPHILS % 0.4 % (0.0-1.0); EOSINOPHILS # (AUTO) 0.2 (0.0-0.4); EOSINOPHILS % 0.7 % (0.0-6.0); HEMATOCRIT 25.4 % (34.2-44.1); LYMPHOCYTES # (AUTO) 1.6 (1.0-3.2); LYMPHOCYTES % 6.1 % (18.0-39.1); MEAN CORPUSCULAR HGB CONC 31.5 g/dL (31-35); MEAN CORPUSCULAR VOLUME 101.6 fL (81-99); MONOCYTES # (AUTO) 3.4 (0.2-0.8); MONOCYTES % 12.6 % (4.4-11.3); NEUTROPHILS # (AUTO) 21.1 (2.1-6.9); NEUTROPHILS % 78.3 % (38.7-80.0); PLATELET COUNT 280 x10e3/uL (140-360); RED CELL DISTRIBUTION WIDTH 16.9 % (11.7-14.4)
[2021-03-05 07:00] LABS: ALBUMIN 2.6 g/dL (3.5-5.0); ALBUMIN/GLOBULIN RATIO 0.5 (0.8-2.0); ANION GAP 13.3 mmol/L (8-16); CALCIUM 9.7 mg/dL (8.4-10.2); CREATININE, SERUM 0.41 mg/dL (0.57-1.11); POTASSIUM 5.3 mmol/L (3.5-5.1)
[2021-03-05 07:11] LABS: ABG PH 7.24 (7.35-7.45)
[2021-03-05 07:12] LABS: ABG HCO3 40 mmol/L (22-26); ABG PCO2 94 mmHg (35-45); ABG PO2 95 mmHg (80-105); ABG TCO2 43
[2021-03-05 07:46] LABS: BAND NEUTROPHILS % (MANUAL) 1 %; EOSINOPHILS % (MANUAL) 1 % (0-7); LYMPHOCYTES % (MANUAL) 4 % (19-48); MONOCYTES % (MANUAL) 10 % (3.4-9.0); NEUTROPHILS % (MANUAL) 84 % (40-74)
[2021-03-05 07:53] LABS: PLATELET ESTIMATE ADEQUATE; PLATELET MORPHOLOGY COMMENT NORMAL
[2021-03-05 07:54] LABS: POLYCHROMASIA FEW; RBC MORPHOLOGY COMMENT NORMAL
[2021-03-05] MEDS ORDERED: VECURONIUM BROMIDE FOR INJ 20 MG VIAL IV STA (08:02)
[2021-03-05] MEDS: MEROPENEM 1 GM in SODIUM CHLORIDE 0.9% 100 ML IV SCH ×3 (08:15→23:43)
[2021-03-05] MEDS: Vancomycin IV 1 GM in SODIUM CHLORIDE 0.9% 250ML 250 ML IV SCH ×2 (08:15→20:41)
[2021-03-05] MEDS ORDERED: MICAFUNGIN SODIUM 100 ML IV SCH (08:30)
[2021-03-05] MEDS: METOPROLOL TARTRATE 25 MG TAB PO SCH ×2 (09:00→20:43)
[2021-03-05] MEDS: EYE LUBRICANT OPTH OINT 3.5GM TUBE OP SCH ×2 (09:00→16:35)
[2021-03-05] MEDS: DOCUSATE SODIUM LIQD 100 MG/10 ML UDC NG SCH ×2 (09:00→16:35)
[2021-03-05] MEDS: SENNOSIDES 8.6 MG TAB PO SCH (09:00)
[2021-03-05] MEDS ORDERED: NOREPINEPHRINE 8 MG/D5W 250 ML 250 ML IV PRN (13:30)
[2021-03-05 13:43] LABS: CLARITY,URINE SL CLOUDY (CLEAR); COLOR,URINE YELLOW (YELLOW); KETONES,URINE NEGATIVE (NEGATIVE); LEUKOCYTE ESTERASE ,URINE TRACE (NEGATIVE); NITRITE,URINE NEGATIVE (NEGATIVE); PROTEIN,URINE DIPSTICK 2+ (NEGATIVE); URINE UROBILINOGEN 1 mg/dL (0.2 - 1)
[2021-03-05 13:46] LABS: BACTERIA,URINE FEW /HPF; EPITHELIAL CELLS,URINE RARE /LPF
[2021-03-05] MEDS ORDERED: SODIUM CHLORIDE 0.9% 1000ML 1,000 ML ONE (14:32)
[2021-03-05 14:41] LABS: ABG PCO2 > 130 mmHg (35-45); ABG PH 6.94 (7.35-7.45); ABG PO2 83 mmHg (80-105)
[2021-03-05] MEDS ORDERED: SODIUM BICARBONATE 8.4% SYRING 100 ML ONE (14:48)
[2021-03-05] MEDS ORDERED: SODIUM BICARBONATE 8.4% INJ 50 ML SYR IV ONE (15:30)
[2021-03-05] MEDS: SODIUM BICARBONATE 8.4% 150 ML in DEXTROSE 5% 1,000 ML IV SCH (15:42)
[2021-03-05 16:45] LABS: ABG PCO2 > 130 mmHg (35-45); ABG PH 7.05 (7.35-7.45); ABG PO2 92 mmHg (80-105)
[2021-03-05 17:10] LABS: ABG PCO2 > 130 mmHg (35-45); ABG PH 7.14 (7.35-7.45)
[2021-03-05] MEDS ORDERED: FUROSEMIDE INJ 10 MG/ML 2 ML VIAL IV ONE (18:00)
[2021-03-05] MEDS: FLUCONAZOLE 200 MG/100 ML 100 ML IV SCH (20:41)
[2021-03-06] VITALS (24 sets, daily range): BP systolic 104–131; BP diastolic 53–66
[2021-03-06] MEDS: SODIUM BICARBONATE 8.4% 150 ML in DEXTROSE 5% 1,000 ML IV SCH ×2 (02:11→11:43)
[2021-03-06 04:23] LABS: ABG PH 7.27 (7.35-7.45)
[2021-03-06] MEDS: ENOXAPARIN SODIUM INJ 100 MG/ML SYR SC SCH ×2 (05:09→18:06)
[2021-03-06] MEDS: MEROPENEM 1 GM in SODIUM CHLORIDE 0.9% 100 ML IV SCH ×3 (05:09→23:39)
[2021-03-06 06:14] LABS: BASOPHILS # (AUTO) 0.1 (0.0-0.1); BASOPHILS % 0.4 % (0.0-1.0); EOSINOPHILS # (AUTO) 0.3 (0.0-0.4); EOSINOPHILS % 1.6 % (0.0-6.0); LYMPHOCYTES # (AUTO) 1.6 (1.0-3.2); LYMPHOCYTES % 8.4 % (18.0-39.1); MEAN CORPUSCULAR HEMOGLOBIN 31.9 pg (28-32); MEAN CORPUSCULAR HGB CONC 32.2 g/dL (31-35); MONOCYTES # (AUTO) 2.7 (0.2-0.8); MONOCYTES % 14.1 % (4.4-11.3); NEUTROPHILS # (AUTO) 13.7 (2.1-6.9); NEUTROPHILS % 72.8 % (38.7-80.0); PLATELET COUNT 256 x10e3/uL (140-360); RED CELL DISTRIBUTION WIDTH 17.1 % (11.7-14.4)
[2021-03-06 06:22] LABS: HEMOGLOBIN 6.7 g/dL (12.0-16.0)
[2021-03-06 06:23] LABS: HEMATOCRIT 20.8 % (34.2-44.1)
[2021-03-06 06:35] LABS: ALBUMIN 2.3 g/dL (3.5-5.0); ALBUMIN/GLOBULIN RATIO 0.5 (0.8-2.0); ANION GAP 20.7 mmol/L (8-16); CALCIUM 8.7 mg/dL (8.4-10.2); CREATININE, SERUM 0.43 mg/dL (0.57-1.11); POTASSIUM 3.7 mmol/L (3.5-5.1)
[2021-03-06] MEDS ORDERED: SODIUM CHLORIDE 0.9% 250ML 250 ML IV ONE (07:15)
[2021-03-06] MEDS: ACETAMINOPHEN 325 MG TAB PO PRN ×3 (07:43→09:58)
[2021-03-06] MEDS: EYE LUBRICANT OPTH OINT 3.5GM TUBE OP SCH ×2 (07:43→18:06)
[2021-03-06] MEDS: METOPROLOL TARTRATE 25 MG TAB PO SCH ×2 (08:14→23:39)
[2021-03-06] MEDS: DOCUSATE SODIUM LIQD 100 MG/10 ML UDC NG SCH ×2 (08:14→18:06)
[2021-03-06] MEDS: SENNOSIDES 8.6 MG TAB PO SCH (08:14)
[2021-03-06] MEDS: ROCURONIUM 1250MG/NS 250 250 ML IV PRN (08:15)
[2021-03-06] MEDS: PROPOFOL IV EMULSION 10MG/ML 100 ML IV PRN (08:15)
[2021-03-06] MEDS: MIDAZOLAM HCL 5MG/ML 10ML VIAL 100 ML IV PRN ×2 (08:16→14:46)
[2021-03-06] MEDS: FENTANYL 2000MCG/NS 250 250 ML IV SCH (08:17)
[2021-03-06 08:31] LABS: ABG HCO3 48 mmol/L (22-26); ABG PCO2 85 mmHg (35-45); ABG PH 7.37 (7.35-7.45); ABG PO2 115 mmHg (80-105); ABG TCO2 > 50
[2021-03-06] MEDS ORDERED: ALBUMIN 25% 25GM 100ML 0.25 GM/ML BTL IV SCH (09:00)
[2021-03-06] MEDS ORDERED: FUROSEMIDE INJ 10 MG/ML 4 ML VIAL IV SCH (09:30)
[2021-03-06] MEDS: Vancomycin IV 1 GM in SODIUM CHLORIDE 0.9% 250ML 250 ML IV SCH ×2 (09:40→19:55)
[2021-03-06 13:42] LABS: ABG PH 7.36 (7.35-7.45)
[2021-03-06 13:43] LABS: ABG HCO3 49 mmol/L (22-26); ABG PCO2 87 mmHg (35-45); ABG PO2 86 mmHg (80-105); ABG TCO2 > 50
[2021-03-06] MEDS: ALBUMIN 25% 25GM 100ML 100 ML IV SCH ×2 (14:49→18:06)
[2021-03-06] MEDS: FLUCONAZOLE 200 MG/100 ML 100 ML IV SCH (18:06)
[2021-03-06] MEDS: FUROSEMIDE INJ 100 MG in SODIUM CHLORIDE 0.9% 100 ML 90 ML IV SCH (19:05)
[2021-03-07] VITALS (28 sets, daily range): BP systolic 96–142; BP diastolic 54–77
[2021-03-07] MEDS: FUROSEMIDE INJ 100 MG in SODIUM CHLORIDE 0.9% 100 ML 90 ML IV SCH ×3 (03:30→22:53)
[2021-03-07] MEDS: ALBUMIN 25% 25GM 100ML 100 ML IV SCH (03:30)
[2021-03-07] MEDS: MEROPENEM 1 GM in SODIUM CHLORIDE 0.9% 100 ML IV SCH ×3 (06:00→22:52)
[2021-03-07 06:19] LABS: BASOPHILS # (AUTO) 0.1 (0.0-0.1); BASOPHILS % 0.5 % (0.0-1.0); EOSINOPHILS # (AUTO) 0.7 (0.0-0.4); EOSINOPHILS % 4.3 % (0.0-6.0); HEMATOCRIT 23.5 % (34.2-44.1); HEMOGLOBIN 7.5 g/dL (12.0-16.0); LYMPHOCYTES # (AUTO) 1.8 (1.0-3.2); MEAN CORPUSCULAR HEMOGLOBIN 31.9 pg (28-32); MEAN CORPUSCULAR HGB CONC 31.9 g/dL (31-35); MONOCYTES # (AUTO) 1.6 (0.2-0.8); MONOCYTES % 10.6 % (4.4-11.3); NEUTROPHILS # (AUTO) 10.6 (2.1-6.9); NEUTROPHILS % 70.4 % (38.7-80.0); PLATELET COUNT 237 x10e3/uL (140-360); RED BLOOD COUNT 2.35 x10e6/uL (3.6-5.1); RED CELL DISTRIBUTION WIDTH 18.8 % (11.7-14.4)
[2021-03-07 06:40] LABS: ALBUMIN 3.2 g/dL (3.5-5.0); ALBUMIN/GLOBULIN RATIO 0.7 (0.8-2.0); ANION GAP 18.8 mmol/L (8-16); CALCIUM 8.7 mg/dL (8.4-10.2); CREATININE, SERUM 0.44 mg/dL (0.57-1.11)
[2021-03-07 06:50] LABS: POTASSIUM 2.8 mmol/L (3.5-5.1)
[2021-03-07] MEDS: FENTANYL 2000MCG/NS 250 250 ML IV SCH (08:15)
[2021-03-07 08:23] LABS: ABG HCO3 51 mmol/L (22-26); ABG PCO2 79 mmHg (35-45); ABG PH 7.42 (7.35-7.45); ABG PO2 82 mmHg (80-105); ABG TCO2 50
[2021-03-07] MEDS: SENNOSIDES 8.6 MG TAB PO SCH (09:00)
[2021-03-07] MEDS: EYE LUBRICANT OPTH OINT 3.5GM TUBE OP SCH ×2 (09:00→17:05)
[2021-03-07] MEDS: METOPROLOL TARTRATE 25 MG TAB PO SCH ×2 (09:00→22:51)
[2021-03-07] MEDS: DOCUSATE SODIUM LIQD 100 MG/10 ML UDC NG SCH ×2 (09:00→17:05)
[2021-03-07] MEDS ORDERED: POTASSIUM CHLORIDE 20MEQ/100ML 200 ML IV ONE (10:30)
[2021-03-07] MEDS: Vancomycin IV 1 GM in SODIUM CHLORIDE 0.9% 250ML 250 ML IV SCH ×2 (12:41→22:51)
[2021-03-07] MEDS: ENOXAPARIN SODIUM INJ 100 MG/ML SYR SC SCH (17:05)
[2021-03-07] MEDS ORDERED: KCL 20 MEQ PACKET/ ORAL SOLN PO ONE (18:00)
[2021-03-07] MEDS: FLUCONAZOLE 200 MG/100 ML 100 ML IV SCH (22:50)
[2021-03-08] VITALS (26 sets, daily range): BP systolic 94–146; BP diastolic 56–81
[2021-03-08] MEDS: MEROPENEM 1 GM in SODIUM CHLORIDE 0.9% 100 ML IV SCH ×3 (06:01→23:41)
[2021-03-08] MEDS: ENOXAPARIN SODIUM INJ 100 MG/ML SYR SC SCH ×2 (06:01→16:19)
[2021-03-08 06:21] LABS: BASOPHILS # (AUTO) 0.1 (0.0-0.1); BASOPHILS % 0.6 % (0.0-1.0); EOSINOPHILS # (AUTO) 0.6 (0.0-0.4); EOSINOPHILS % 3.4 % (0.0-6.0); HEMATOCRIT 27.9 % (34.2-44.1); HEMOGLOBIN 8.7 g/dL (12.0-16.0); LYMPHOCYTES # (AUTO) 1.6 (1.0-3.2); LYMPHOCYTES % 8.8 % (18.0-39.1); MEAN CORPUSCULAR HEMOGLOBIN 31.3 pg (28-32); MEAN CORPUSCULAR HGB CONC 31.2 g/dL (31-35); MEAN CORPUSCULAR VOLUME 100.4 fL (81-99); MONOCYTES # (AUTO) 1.7 (0.2-0.8); MONOCYTES % 9.3 % (4.4-11.3); NEUTROPHILS # (AUTO) 13.5 (2.1-6.9); NEUTROPHILS % 74.9 % (38.7-80.0); PLATELET COUNT 245 x10e3/uL (140-360); RED BLOOD COUNT 2.78 x10e6/uL (3.6-5.1); RED CELL DISTRIBUTION WIDTH 18.2 % (11.7-14.4)
[2021-03-08 06:44] LABS: ALBUMIN 2.8 g/dL (3.5-5.0); ALBUMIN/GLOBULIN RATIO 0.5 (0.8-2.0); ANION GAP 24.1 mmol/L (8-16); CALCIUM 8.7 mg/dL (8.4-10.2); CREATININE, SERUM 0.44 mg/dL (0.57-1.11); POTASSIUM 3.1 mmol/L (3.5-5.1)
[2021-03-08] MEDS ORDERED: POTASSIUM CHLORIDE 20MEQ/100ML 200 ML IV ONE (08:15)
[2021-03-08 08:37] LABS: ABG PH 7.45 (7.35-7.45)
[2021-03-08 08:38] LABS: ABG PCO2 80 mmHg (35-45); ABG PO2 49 mmHg (80-105)
[2021-03-08 08:39] LABS: ABG HCO3 56 mmol/L (22-26)
[2021-03-08 08:40] LABS: ABG TCO2 > 50
[2021-03-08] MEDS: KCL 20 MEQ PACKET/ ORAL SOLN PO SCH (09:19)
[2021-03-08] MEDS: FENTANYL 2000MCG/NS 250 250 ML IV SCH (09:46)
[2021-03-08] MEDS: DOCUSATE SODIUM LIQD 100 MG/10 ML UDC NG SCH ×2 (09:46→16:18)
[2021-03-08] MEDS: Vancomycin IV 1 GM in SODIUM CHLORIDE 0.9% 250ML 250 ML IV SCH ×2 (09:46→23:40)
[2021-03-08] MEDS: PROPOFOL IV EMULSION 10MG/ML 100 ML IV PRN ×2 (09:47→13:42)
[2021-03-08] MEDS: METOPROLOL TARTRATE 25 MG TAB PO SCH ×2 (09:47→21:00)
[2021-03-08] MEDS: FUROSEMIDE INJ 100 MG in SODIUM CHLORIDE 0.9% 100 ML 90 ML IV SCH ×2 (09:47→23:40)
[2021-03-08] MEDS: SENNOSIDES 8.6 MG TAB PO SCH (09:47)
[2021-03-08] MEDS: EYE LUBRICANT OPTH OINT 3.5GM TUBE OP SCH ×2 (09:47→16:19)
[2021-03-08] MEDS: MIDAZOLAM HCL 5MG/ML 10ML VIAL 100 ML IV PRN ×2 (09:48→14:48)
[2021-03-08] MEDS: ACETAMINOPHEN 325 MG TAB PO PRN (09:48)
[2021-03-08] MEDS: FLUCONAZOLE 200 MG/100 ML 100 ML IV SCH (23:40)
[2021-03-09] VITALS (23 sets, daily range): BP systolic 87–133; BP diastolic 48–71
[2021-03-09] MEDS: FUROSEMIDE INJ 100 MG in SODIUM CHLORIDE 0.9% 100 ML 90 ML IV SCH ×2 (06:39→17:21)
[2021-03-09] MEDS: MEROPENEM 1 GM in SODIUM CHLORIDE 0.9% 100 ML IV SCH ×3 (06:39→22:36)
[2021-03-09 06:40] LABS: BASOPHILS # (AUTO) 0.1 (0.0-0.1); BASOPHILS % 0.5 % (0.0-1.0); EOSINOPHILS # (AUTO) 0.9 (0.0-0.4); EOSINOPHILS % 4.9 % (0.0-6.0); HEMATOCRIT 25.3 % (34.2-44.1); LYMPHOCYTES # (AUTO) 1.5 (1.0-3.2); LYMPHOCYTES % 8.2 % (18.0-39.1); MEAN CORPUSCULAR HEMOGLOBIN 30.9 pg (28-32); MEAN CORPUSCULAR HGB CONC 31.6 g/dL (31-35); MEAN CORPUSCULAR VOLUME 97.7 fL (81-99); MONOCYTES # (AUTO) 1.3 (0.2-0.8); MONOCYTES % 6.7 % (4.4-11.3); NEUTROPHILS # (AUTO) 14.5 (2.1-6.9); NEUTROPHILS % 77.4 % (38.7-80.0); PLATELET COUNT 206 x10e3/uL (140-360); RED BLOOD COUNT 2.59 x10e6/uL (3.6-5.1); RED CELL DISTRIBUTION WIDTH 17.4 % (11.7-14.4)
[2021-03-09 07:13] LABS: ALBUMIN 2.1 g/dL (3.5-5.0); ALBUMIN/GLOBULIN RATIO 0.5 (0.8-2.0); ANION GAP 16.2 mmol/L (8-16); CALCIUM 8.3 mg/dL (8.4-10.2); CREATININE, SERUM 0.41 mg/dL (0.57-1.11); POTASSIUM 3.2 mmol/L (3.5-5.1)
[2021-03-09] MEDS: METOPROLOL TARTRATE 25 MG TAB PO SCH ×2 (09:00→20:18)
[2021-03-09 09:17] LABS: ABG HCO3 55 mmol/L (22-26); ABG PCO2 82 mmHg (35-45); ABG PH 7.44 (7.35-7.45); ABG PO2 70 mmHg (80-105); ABG TCO2 > 50
[2021-03-09] MEDS: KCL 20 MEQ PACKET/ ORAL SOLN PO SCH (09:30)
[2021-03-09] MEDS: Vancomycin IV 1 GM in SODIUM CHLORIDE 0.9% 250ML 250 ML IV SCH (09:30)
[2021-03-09] MEDS: DOCUSATE SODIUM LIQD 100 MG/10 ML UDC NG SCH (09:30)
[2021-03-09] MEDS: EYE LUBRICANT OPTH OINT 3.5GM TUBE OP SCH ×2 (09:30→17:52)
[2021-03-09] MEDS: SENNOSIDES 8.6 MG TAB PO SCH (09:31)
[2021-03-09] MEDS: MIDAZOLAM HCL 5MG/ML 10ML VIAL 100 ML IV PRN (15:42)
[2021-03-09] MEDS: FENTANYL 2000MCG/NS 250 250 ML IV SCH (15:42)
[2021-03-09] MEDS: PROPOFOL IV EMULSION 10MG/ML 100 ML IV PRN (15:43)
[2021-03-09] MEDS: ENOXAPARIN SODIUM INJ 100 MG/ML SYR SC SCH (17:52)
[2021-03-10] VITALS (27 sets, daily range): BP systolic 89–131; BP diastolic 51–80
[2021-03-10] MEDS: FUROSEMIDE INJ 100 MG in SODIUM CHLORIDE 0.9% 100 ML 90 ML IV SCH ×2 (03:56→10:28)
[2021-03-10] MEDS: MEROPENEM 1 GM in SODIUM CHLORIDE 0.9% 100 ML IV SCH ×3 (06:05→23:50)
[2021-03-10] MEDS: ENOXAPARIN SODIUM INJ 100 MG/ML SYR SC SCH ×2 (06:06→17:25)
[2021-03-10 06:45] LABS: BASOPHILS # (AUTO) 0.1 (0.0-0.1); BASOPHILS % 0.4 % (0.0-1.0); EOSINOPHILS # (AUTO) 1.3 (0.0-0.4); EOSINOPHILS % 7.9 % (0.0-6.0); HEMATOCRIT 27.7 % (34.2-44.1); HEMOGLOBIN 8.9 g/dL (12.0-16.0); LYMPHOCYTES # (AUTO) 1.4 (1.0-3.2); LYMPHOCYTES % 8.6 % (18.0-39.1); MEAN CORPUSCULAR HEMOGLOBIN 31.1 pg (28-32); MEAN CORPUSCULAR HGB CONC 32.1 g/dL (31-35); MEAN CORPUSCULAR VOLUME 96.9 fL (81-99); MONOCYTES # (AUTO) 1.1 (0.2-0.8); MONOCYTES % 6.6 % (4.4-11.3); NEUTROPHILS # (AUTO) 12.3 (2.1-6.9); NEUTROPHILS % 73.9 % (38.7-80.0); PLATELET COUNT 215 x10e3/uL (140-360); RED BLOOD COUNT 2.86 x10e6/uL (3.6-5.1); RED CELL DISTRIBUTION WIDTH 17.6 % (11.7-14.4)
[2021-03-10 07:22] LABS: ALBUMIN 2.1 g/dL (3.5-5.0); ALBUMIN/GLOBULIN RATIO 0.4 (0.8-2.0); ANION GAP 19.2 mmol/L (8-16); CALCIUM 8.8 mg/dL (8.4-10.2); CREATININE, SERUM 0.39 mg/dL (0.57-1.11); POTASSIUM 3.2 mmol/L (3.5-5.1)
[2021-03-10] MEDS: METOPROLOL TARTRATE 25 MG TAB PO SCH ×2 (08:26→21:00)
[2021-03-10] MEDS: FENTANYL 2000MCG/NS 250 250 ML IV SCH ×2 (08:32→18:28)
[2021-03-10 08:33] LABS: ABG PH 7.42 (7.35-7.45)
[2021-03-10] MEDS: MIDAZOLAM HCL 5MG/ML 10ML VIAL 100 ML IV PRN ×3 (08:33→18:29)
[2021-03-10 08:34] LABS: ABG HCO3 58 mmol/L (22-26); ABG PCO2 90 mmHg (35-45); ABG PO2 69 mmHg (80-105); ABG TCO2 50
[2021-03-10] MEDS: KCL 20 MEQ PACKET/ ORAL SOLN PO SCH (10:28)
[2021-03-10] MEDS: EYE LUBRICANT OPTH OINT 3.5GM TUBE OP SCH ×2 (10:28→17:25)
[2021-03-10] MEDS: PROPOFOL IV EMULSION 10MG/ML 100 ML IV PRN ×3 (11:00→18:29)
[2021-03-10] MEDS ORDERED: ACETAZOLAMIDE SODIUM 500 MG/VIAL IV ONE (12:00)
[2021-03-10] MEDS ORDERED: HEPARIN SOD (PORCINE) 1000 UNIT/ML SDV ONE (16:46)
[2021-03-10] MEDS: ROCURONIUM 1250MG/NS 250 250 ML IV PRN (18:29)
[2021-03-10] MEDS: ALBUMIN 25% 12.5GM 0.25 GM/ML BTL IV SCH (23:50)
[2021-03-11] VITALS (30 sets, daily range): BP systolic 98–129; BP diastolic 61–76
[2021-03-11] MEDS: MEROPENEM 1 GM in SODIUM CHLORIDE 0.9% 100 ML IV SCH ×3 (06:07→21:56)
[2021-03-11] MEDS: ENOXAPARIN SODIUM INJ 100 MG/ML SYR SC SCH ×2 (06:07→17:17)
[2021-03-11 06:25] LABS: BASOPHILS # (AUTO) 0.1 (0.0-0.1); BASOPHILS % 0.4 % (0.0-1.0); EOSINOPHILS # (AUTO) 1.4 (0.0-0.4); EOSINOPHILS % 9.7 % (0.0-6.0); HEMATOCRIT 27.7 % (34.2-44.1); HEMOGLOBIN 8.8 g/dL (12.0-16.0); LYMPHOCYTES # (AUTO) 1.6 (1.0-3.2); LYMPHOCYTES % 10.9 % (18.0-39.1); MEAN CORPUSCULAR HEMOGLOBIN 30.7 pg (28-32); MEAN CORPUSCULAR HGB CONC 31.8 g/dL (31-35); MEAN CORPUSCULAR VOLUME 96.5 fL (81-99); MONOCYTES # (AUTO) 1.2 (0.2-0.8); NEUTROPHILS # (AUTO) 9.7 (2.1-6.9); NEUTROPHILS % 67.6 % (38.7-80.0); PLATELET COUNT 193 x10e3/uL (140-360); RED BLOOD COUNT 2.87 x10e6/uL (3.6-5.1); RED CELL DISTRIBUTION WIDTH 17.2 % (11.7-14.4)
[2021-03-11 06:43] LABS: ANION GAP 19.5 mmol/L (8-16); CALCIUM 8.9 mg/dL (8.4-10.2); CREATININE, SERUM 0.46 mg/dL (0.57-1.11); MAGNESIUM 2.1 MG/DL (1.3-2.1); PHOSPHORUS 4.8 MG/DL (2.3-4.7); POTASSIUM 3.5 mmol/L (3.5-5.1)
[2021-03-11] MEDS: METOPROLOL TARTRATE 25 MG TAB PO SCH ×2 (07:37→21:56)
[2021-03-11] MEDS: PROPOFOL IV EMULSION 10MG/ML 100 ML IV PRN ×3 (07:38→21:57)
[2021-03-11] MEDS: FENTANYL 2000MCG/NS 250 250 ML IV SCH (07:38)
[2021-03-11] MEDS: MIDAZOLAM HCL 5MG/ML 10ML VIAL 100 ML IV PRN ×2 (07:39→20:54)
[2021-03-11 08:17] LABS: ABG HCO3 50 mmol/L (22-26); ABG PCO2 91 mmHg (35-45); ABG PH 7.35 (7.35-7.45); ABG PO2 88 mmHg (80-105); ABG TCO2 50
[2021-03-11] MEDS: KCL 20 MEQ PACKET/ ORAL SOLN PO SCH (09:23)
[2021-03-11] MEDS: EYE LUBRICANT OPTH OINT 3.5GM TUBE OP SCH ×2 (09:23→17:17)
[2021-03-11] MEDS: ALBUMIN 25% 12.5GM 0.25 GM/ML BTL IV SCH (09:23)
[2021-03-11] MEDS ORDERED: HEPARIN SOD (PORCINE) 1000 UNIT/ML SDV ONE (18:20)
[2021-03-11] MEDS: FENTANYL 2000MCG/NS 250 250 ML IV PRN (22:57)
[2021-03-12] VITALS (27 sets, daily range): BP systolic 103–134; BP diastolic 55–69
[2021-03-12] MEDS: PROPOFOL IV EMULSION 10MG/ML 100 ML IV PRN ×4 (01:08→09:45)
[2021-03-12] MEDS: MIDAZOLAM HCL 5MG/ML 10ML VIAL 100 ML IV PRN ×3 (02:21→07:30)
[2021-03-12] MEDS: ROCURONIUM 1250MG/NS 250 250 ML IV PRN ×3 (02:23→04:54)
[2021-03-12] MEDS: ENOXAPARIN SODIUM INJ 100 MG/ML SYR SC SCH ×2 (05:26→16:55)
[2021-03-12] MEDS: MEROPENEM 1 GM in SODIUM CHLORIDE 0.9% 100 ML IV SCH ×2 (05:26→13:56)
[2021-03-12] MEDS: FENTANYL 2000MCG/NS 250 250 ML IV PRN ×2 (05:29→07:00)
[2021-03-12 06:24] LABS: BASOPHILS # (AUTO) 0.1 (0.0-0.1); BASOPHILS % 0.5 % (0.0-1.0); EOSINOPHILS # (AUTO) 0.9 (0.0-0.4); EOSINOPHILS % 6.7 % (0.0-6.0); HEMATOCRIT 26.4 % (34.2-44.1); HEMOGLOBIN 8.6 g/dL (12.0-16.0); LYMPHOCYTES # (AUTO) 1.8 (1.0-3.2); LYMPHOCYTES % 13.6 % (18.0-39.1); MEAN CORPUSCULAR HEMOGLOBIN 31.2 pg (28-32); MEAN CORPUSCULAR HGB CONC 32.6 g/dL (31-35); MEAN CORPUSCULAR VOLUME 95.7 fL (81-99); MONOCYTES # (AUTO) 1.2 (0.2-0.8); MONOCYTES % 8.8 % (4.4-11.3); NEUTROPHILS # (AUTO) 8.8 (2.1-6.9); PLATELET COUNT 224 x10e3/uL (140-360); RED BLOOD COUNT 2.76 x10e6/uL (3.6-5.1); RED CELL DISTRIBUTION WIDTH 17.3 % (11.7-14.4)
[2021-03-12 06:35] LABS: ALBUMIN/GLOBULIN RATIO 0.6 (0.8-2.0); ANION GAP 22.9 mmol/L (8-16); CALCIUM 9.5 mg/dL (8.4-10.2); CREATININE, SERUM 0.44 mg/dL (0.57-1.11); POTASSIUM 3.9 mmol/L (3.5-5.1)
[2021-03-12] MEDS: ACETAMINOPHEN 325 MG TAB PO PRN (06:35)
[2021-03-12 08:15] LABS: ABG HCO3 44 mmol/L (22-26); ABG PCO2 71 mmHg (35-45); ABG PO2 64 mmHg (80-105); ABG TCO2 46
[2021-03-12] MEDS: METOPROLOL TARTRATE 25 MG TAB PO SCH (09:00)
[2021-03-12] MEDS: EYE LUBRICANT OPTH OINT 3.5GM TUBE OP SCH ×2 (09:19→16:55)
[2021-03-12] MEDS ORDERED: HEPARIN SOD (PORCINE) 1000 UNIT/ML SDV ONE (09:41)
[2021-03-13] VITALS (27 sets, daily range): BP systolic 106–137; BP diastolic 54–76
[2021-03-13] MEDS: METOPROLOL TARTRATE 25 MG TAB PO SCH ×3 (03:17→23:07)
[2021-03-13] MEDS: MEROPENEM 1 GM in SODIUM CHLORIDE 0.9% 100 ML IV SCH ×4 (03:17→23:07)
[2021-03-13] MEDS: ENOXAPARIN SODIUM INJ 100 MG/ML SYR SC SCH ×2 (05:03→16:37)
[2021-03-13 06:19] LABS: BASOPHILS # (AUTO) 0.1 (0.0-0.1); BASOPHILS % 0.4 % (0.0-1.0); EOSINOPHILS # (AUTO) 1.3 (0.0-0.4); EOSINOPHILS % 6.4 % (0.0-6.0); HEMATOCRIT 27.5 % (34.2-44.1); LYMPHOCYTES # (AUTO) 2.4 (1.0-3.2); LYMPHOCYTES % 11.8 % (18.0-39.1); MEAN CORPUSCULAR HEMOGLOBIN 30.9 pg (28-32); MEAN CORPUSCULAR HGB CONC 32.7 g/dL (31-35); MEAN CORPUSCULAR VOLUME 94.5 fL (81-99); MONOCYTES # (AUTO) 1.8 (0.2-0.8); MONOCYTES % 8.8 % (4.4-11.3); NEUTROPHILS % 68.8 % (38.7-80.0); PLATELET COUNT 234 x10e3/uL (140-360); RED BLOOD COUNT 2.91 x10e6/uL (3.6-5.1); RED CELL DISTRIBUTION WIDTH 17.6 % (11.7-14.4)
[2021-03-13 06:38] LABS: ALBUMIN 2.7 g/dL (3.5-5.0); ALBUMIN/GLOBULIN RATIO 0.5 (0.8-2.0); ANION GAP 13.7 mmol/L (8-16); CALCIUM 8.8 mg/dL (8.4-10.2); CREATININE, SERUM 0.36 mg/dL (0.57-1.11); POTASSIUM 3.7 mmol/L (3.5-5.1)
[2021-03-13 08:38] LABS: ABG HCO3 44 mmol/L (22-26); ABG PCO2 71 mmHg (35-45); ABG PO2 72 mmHg (80-105); ABG TCO2 46
[2021-03-13] MEDS: EYE LUBRICANT OPTH OINT 3.5GM TUBE OP SCH ×2 (08:53→16:37)
[2021-03-13] MEDS: PROPOFOL IV EMULSION 10MG/ML 100 ML IV PRN ×4 (09:00→18:02)
[2021-03-13] MEDS: MIDAZOLAM HCL 5MG/ML 10ML VIAL 100 ML IV PRN (16:07)
[2021-03-13] MEDS: FENTANYL 2000MCG/NS 250 250 ML IV PRN (16:07)
[2021-03-13] MEDS ORDERED: FUROSEMIDE INJ 10 MG/ML 4 ML VIAL IV ONE (17:30)
[2021-03-13] MEDS ORDERED: POTASSIUM CHLORIDE 20 MEQ TAB CR PO ONE (17:45)
[2021-03-14] VITALS (27 sets, daily range): BP systolic 93–140; BP diastolic 52–92
[2021-03-14] MEDS: ENOXAPARIN SODIUM INJ 100 MG/ML SYR SC SCH ×2 (06:00→18:09)
[2021-03-14] MEDS: MEROPENEM 1 GM in SODIUM CHLORIDE 0.9% 100 ML IV SCH ×3 (06:00→22:27)
[2021-03-14 06:15] LABS: BASOPHILS # (AUTO) 0.1 (0.0-0.1); BASOPHILS % 0.3 % (0.0-1.0); EOSINOPHILS # (AUTO) 1.3 (0.0-0.4); EOSINOPHILS % 7.2 % (0.0-6.0); HEMATOCRIT 28.3 % (34.2-44.1); HEMOGLOBIN 9.2 g/dL (12.0-16.0); LYMPHOCYTES # (AUTO) 2.3 (1.0-3.2); MEAN CORPUSCULAR HEMOGLOBIN 30.8 pg (28-32); MEAN CORPUSCULAR HGB CONC 32.5 g/dL (31-35); MEAN CORPUSCULAR VOLUME 94.6 fL (81-99); MONOCYTES # (AUTO) 1.7 (0.2-0.8); MONOCYTES % 9.5 % (4.4-11.3); NEUTROPHILS # (AUTO) 11.8 (2.1-6.9); NEUTROPHILS % 65.2 % (38.7-80.0); PLATELET COUNT 281 x10e3/uL (140-360); RED BLOOD COUNT 2.99 x10e6/uL (3.6-5.1); RED CELL DISTRIBUTION WIDTH 17.8 % (11.7-14.4)
[2021-03-14 06:59] LABS: ALBUMIN 2.6 g/dL (3.5-5.0); ALBUMIN/GLOBULIN RATIO 0.5 (0.8-2.0); ANION GAP 18.7 mmol/L (8-16); CALCIUM 8.7 mg/dL (8.4-10.2); CREATININE, SERUM 0.36 mg/dL (0.57-1.11); POTASSIUM 3.7 mmol/L (3.5-5.1)
[2021-03-14 07:39] LABS: ABG PH 7.39 (7.35-7.45)
[2021-03-14 07:40] LABS: ABG HCO3 46 mmol/L (22-26); ABG PCO2 76 mmHg (35-45); ABG PO2 69 mmHg (80-105); ABG TCO2 48
[2021-03-14] MEDS: EYE LUBRICANT OPTH OINT 3.5GM TUBE OP SCH ×2 (08:08→18:09)
[2021-03-14] MEDS: METOPROLOL TARTRATE 25 MG TAB PO SCH ×2 (08:09→21:00)
[2021-03-14] MEDS: BACITRACIN ZINC 15 GM OINT TOP SCH (08:09)
[2021-03-14] MEDS: PROPOFOL IV EMULSION 10MG/ML 100 ML IV PRN ×4 (09:07→18:08)
[2021-03-14] MEDS ORDERED: HEPARIN SOD (PORCINE) 1000 UNIT/ML SDV ONE (10:14)
[2021-03-14] MEDS: MIDAZOLAM HCL 5MG/ML 10ML VIAL 100 ML IV PRN ×2 (10:37→12:40)
[2021-03-14] MEDS: FENTANYL 2000MCG/NS 250 250 ML IV PRN ×2 (12:40→19:32)
[2021-03-14 16:08] LABS: ABG HCO3 46 mmol/L (22-26); ABG PCO2 78 mmHg (35-45); ABG PH 7.38 (7.35-7.45); ABG PO2 77 mmHg (80-105); ABG TCO2 48
[2021-03-14] MEDS: FUROSEMIDE INJ 10 MG/ML 4 ML VIAL IV SCH (18:09)
[2021-03-15] VITALS (25 sets, daily range): BP systolic 81–146; BP diastolic 48–80
[2021-03-15] MEDS: ENOXAPARIN SODIUM INJ 100 MG/ML SYR SC SCH ×2 (06:05→16:52)
[2021-03-15] MEDS: MEROPENEM 1 GM in SODIUM CHLORIDE 0.9% 100 ML IV SCH (06:05)
[2021-03-15 06:35] LABS: BASOPHILS # (AUTO) 0.1 (0.0-0.1); BASOPHILS % 0.4 % (0.0-1.0); EOSINOPHILS # (AUTO) 1.5 (0.0-0.4); HEMATOCRIT 28.5 % (34.2-44.1); LYMPHOCYTES # (AUTO) 2.3 (1.0-3.2); LYMPHOCYTES % 14.2 % (18.0-39.1); MEAN CORPUSCULAR HEMOGLOBIN 30.4 pg (28-32); MEAN CORPUSCULAR HGB CONC 31.6 g/dL (31-35); MEAN CORPUSCULAR VOLUME 96.3 fL (81-99); MONOCYTES # (AUTO) 1.5 (0.2-0.8); NEUTROPHILS # (AUTO) 10.3 (2.1-6.9); NEUTROPHILS % 63.1 % (38.7-80.0); PLATELET COUNT 316 x10e3/uL (140-360); RED BLOOD COUNT 2.96 x10e6/uL (3.6-5.1)
[2021-03-15 07:00] LABS: ALBUMIN 2.6 g/dL (3.5-5.0); ALBUMIN/GLOBULIN RATIO 0.5 (0.8-2.0); ANION GAP 16.8 mmol/L (8-16); CALCIUM 9.1 mg/dL (8.4-10.2); CREATININE, SERUM 0.37 mg/dL (0.57-1.11); POTASSIUM 3.8 mmol/L (3.5-5.1)
[2021-03-15 08:40] LABS: ABG PH 7.42 (7.35-7.45)
[2021-03-15 08:41] LABS: ABG HCO3 49 mmol/L (22-26); ABG PCO2 76 mmHg (35-45); ABG PO2 69 mmHg (80-105); ABG TCO2 > 50
[2021-03-15] MEDS: DEXMEDETOMIDINE 400MCG/NS100ML 100 ML IV PRN (09:15)
[2021-03-15] MEDS: EYE LUBRICANT OPTH OINT 3.5GM TUBE OP SCH ×2 (09:20→16:52)
[2021-03-15] MEDS: METOPROLOL TARTRATE 25 MG TAB PO SCH ×2 (09:20→21:08)
[2021-03-15] MEDS: FUROSEMIDE INJ 10 MG/ML 4 ML VIAL IV SCH (09:20)
[2021-03-15] MEDS: BACITRACIN ZINC 15 GM OINT TOP SCH (09:21)
[2021-03-15] MEDS: PROPOFOL IV EMULSION 10MG/ML 100 ML IV PRN (10:00)
[2021-03-15] MEDS ORDERED: HEPARIN SOD (PORCINE) 1000 UNIT/ML SDV ONE (10:44)
[2021-03-15] MEDS: MIDAZOLAM HCL 5MG/ML 10ML VIAL 100 ML IV PRN ×3 (13:19→18:54)
[2021-03-15] MEDS: FENTANYL 2000MCG/NS 250 250 ML IV PRN ×2 (14:26→21:42)
[2021-03-15] MEDS ORDERED: POTASSIUM CHLORIDE 20 MEQ TAB CR PO ONE (16:30)
[2021-03-16] VITALS (23 sets, daily range): BP systolic 87–144; BP diastolic 48–74
[2021-03-16] MEDS: ENOXAPARIN SODIUM INJ 100 MG/ML SYR SC SCH ×2 (05:06→17:18)
[2021-03-16 05:31] LABS: BASOPHILS # (AUTO) 0.1 (0.0-0.1); BASOPHILS % 0.4 % (0.0-1.0); EOSINOPHILS # (AUTO) 0.8 (0.0-0.4); EOSINOPHILS % 4.9 % (0.0-6.0); HEMATOCRIT 27.1 % (34.2-44.1); HEMOGLOBIN 8.8 g/dL (12.0-16.0); LYMPHOCYTES # (AUTO) 2.1 (1.0-3.2); LYMPHOCYTES % 13.8 % (18.0-39.1); MEAN CORPUSCULAR HEMOGLOBIN 30.6 pg (28-32); MEAN CORPUSCULAR HGB CONC 32.5 g/dL (31-35); MEAN CORPUSCULAR VOLUME 94.1 fL (81-99); MONOCYTES # (AUTO) 1.6 (0.2-0.8); MONOCYTES % 10.4 % (4.4-11.3); NEUTROPHILS # (AUTO) 10.3 (2.1-6.9); NEUTROPHILS % 66.7 % (38.7-80.0); PLATELET COUNT 358 x10e3/uL (140-360); RED BLOOD COUNT 2.88 x10e6/uL (3.6-5.1)
[2021-03-16 05:58] LABS: ALANINE AMINOTRANSFERASE 44 IU/L (0-55); ALBUMIN 2.7 g/dL (3.5-5.0); ALBUMIN/GLOBULIN RATIO 0.5 (0.8-2.0); ALKALINE PHOSPHATASE 87 IU/L (40-150); ANION GAP 17.5 mmol/L (8-16); BLOOD UREA NITROGEN < 5 mg/dL (7-26); CARBON DIOXIDE 35 mmol/L (22-29); CHLORIDE 88 mmol/L (98-107); CREATININE, SERUM 0.37 mg/dL (0.57-1.11); EST GLOMERULAR FILTRATION RATE 206 ML/MIN (60-); GLUCOSE 123 mg/dL (74-118); POTASSIUM 3.5 mmol/L (3.5-5.1); SODIUM 137 mmol/L (136-145)
[2021-03-16 06:32] LABS: BUN/CREATININE RATIO 14 (6-25)
[2021-03-16 07:54] LABS: ABG HCO3 47 mmol/L (22-26); ABG PCO2 73 mmHg (35-45); ABG PH 7.42 (7.35-7.45); ABG PO2 83 mmHg (80-105); ABG TCO2 50
[2021-03-16] MEDS: FENTANYL 2000MCG/NS 250 250 ML IV PRN (08:30)
[2021-03-16] MEDS: PROPOFOL IV EMULSION 10MG/ML 100 ML IV PRN ×3 (08:30→16:00)
[2021-03-16] MEDS: MIDAZOLAM HCL 5MG/ML 10ML VIAL 100 ML IV PRN ×2 (08:30→15:00)
[2021-03-16] MEDS: METOPROLOL TARTRATE 25 MG TAB PO SCH ×2 (09:00→21:00)
[2021-03-16] MEDS: EYE LUBRICANT OPTH OINT 3.5GM TUBE OP SCH ×2 (09:00→17:18)
[2021-03-16] MEDS: POTASSIUM CHLORIDE 20 MEQ TAB CR PO SCH (09:00)
[2021-03-16] MEDS: FUROSEMIDE INJ 10 MG/ML 4 ML VIAL IV SCH (09:18)
[2021-03-16] MEDS: BACITRACIN ZINC 15 GM OINT TOP SCH (09:19)
[2021-03-17] VITALS (32 sets, daily range): BP systolic 89–129; BP diastolic 45–75
[2021-03-17] MEDS: ENOXAPARIN SODIUM INJ 100 MG/ML SYR SC SCH ×2 (05:15→16:39)
[2021-03-17 06:34] LABS: BASOPHILS # (AUTO) 0.1 (0.0-0.1); BASOPHILS % 0.4 % (0.0-1.0); EOSINOPHILS # (AUTO) 1.1 (0.0-0.4); EOSINOPHILS % 7.1 % (0.0-6.0); HEMATOCRIT 26.6 % (34.2-44.1); HEMOGLOBIN 8.5 g/dL (12.0-16.0); LYMPHOCYTES % 13.4 % (18.0-39.1); MEAN CORPUSCULAR HEMOGLOBIN 30.2 pg (28-32); MEAN CORPUSCULAR VOLUME 94.7 fL (81-99); MONOCYTES # (AUTO) 1.4 (0.2-0.8); MONOCYTES % 9.2 % (4.4-11.3); NEUTROPHILS # (AUTO) 10.3 (2.1-6.9); NEUTROPHILS % 67.1 % (38.7-80.0); PLATELET COUNT 376 x10e3/uL (140-360); RED BLOOD COUNT 2.81 x10e6/uL (3.6-5.1); RED CELL DISTRIBUTION WIDTH 18.3 % (11.7-14.4)
[2021-03-17 06:39] LABS: ALBUMIN 2.7 g/dL (3.5-5.0); ALBUMIN/GLOBULIN RATIO 0.6 (0.8-2.0); ANION GAP 15.9 mmol/L (8-16); CALCIUM 9.2 mg/dL (8.4-10.2); CREATININE, SERUM 0.39 mg/dL (0.57-1.11); POTASSIUM 3.9 mmol/L (3.5-5.1)
[2021-03-17] MEDS: FENTANYL 2000MCG/NS 250 250 ML IV PRN ×3 (08:00→19:31)
[2021-03-17] MEDS: POTASSIUM CHLORIDE 20 MEQ TAB CR PO SCH (08:07)
[2021-03-17] MEDS: FUROSEMIDE INJ 10 MG/ML 4 ML VIAL IV SCH ×2 (08:07→17:15)
[2021-03-17] MEDS: EYE LUBRICANT OPTH OINT 3.5GM TUBE OP SCH ×2 (08:07→16:39)
[2021-03-17] MEDS: BACITRACIN ZINC 15 GM OINT TOP SCH (08:08)
[2021-03-17] MEDS: METOPROLOL TARTRATE 25 MG TAB PO SCH (08:08)
[2021-03-17 08:58] LABS: ABG HCO3 48 mmol/L (22-26); ABG PCO2 76 mmHg (35-45); ABG PH 7.41 (7.35-7.45); ABG PO2 68 mmHg (80-105); ABG TCO2 > 50
[2021-03-17] MEDS ORDERED: ALBUMIN 25% 12.5GM 0.25 GM/ML BTL IV NR (09:00)
[2021-03-17] MEDS: PROPOFOL IV EMULSION 10MG/ML 100 ML IV PRN ×5 (09:59→22:06)
[2021-03-17] MEDS: MIDAZOLAM HCL 5MG/ML 10ML VIAL 100 ML IV PRN ×2 (11:56→18:35)
[2021-03-18] VITALS (30 sets, daily range): BP systolic 82–136; BP diastolic 45–72
[2021-03-18] MEDS: FENTANYL 2000MCG/NS 250 250 ML IV PRN ×3 (00:08→07:45)
[2021-03-18] MEDS: PROPOFOL IV EMULSION 10MG/ML 100 ML IV PRN ×8 (01:00→23:11)
[2021-03-18] MEDS: MIDAZOLAM HCL 5MG/ML 10ML VIAL 100 ML IV PRN ×4 (02:06→17:00)
[2021-03-18] MEDS: DEXMEDETOMIDINE 400MCG/NS100ML 100 ML IV PRN ×3 (03:44→16:42)
[2021-03-18] MEDS: ENOXAPARIN SODIUM INJ 100 MG/ML SYR SC SCH ×2 (05:21→17:08)
[2021-03-18 06:36] LABS: BASOPHILS # (AUTO) 0.1 (0.0-0.1); BASOPHILS % 0.4 % (0.0-1.0); EOSINOPHILS # (AUTO) 0.9 (0.0-0.4); EOSINOPHILS % 4.7 % (0.0-6.0); HEMATOCRIT 26.2 % (34.2-44.1); HEMOGLOBIN 8.1 g/dL (12.0-16.0); LYMPHOCYTES % 10.6 % (18.0-39.1); MEAN CORPUSCULAR HEMOGLOBIN 29.7 pg (28-32); MEAN CORPUSCULAR HGB CONC 30.9 g/dL (31-35); MONOCYTES # (AUTO) 1.6 (0.2-0.8); MONOCYTES % 8.3 % (4.4-11.3); NEUTROPHILS # (AUTO) 13.9 (2.1-6.9); PLATELET COUNT 377 x10e3/uL (140-360); RED BLOOD COUNT 2.73 x10e6/uL (3.6-5.1); RED CELL DISTRIBUTION WIDTH 18.6 % (11.7-14.4)
[2021-03-18 06:53] LABS: ALBUMIN 2.8 g/dL (3.5-5.0); ALBUMIN/GLOBULIN RATIO 0.7 (0.8-2.0); ANION GAP 15.3 mmol/L (8-16); CALCIUM 9.2 mg/dL (8.4-10.2); CREATININE, SERUM 0.37 mg/dL (0.57-1.11); POTASSIUM 3.3 mmol/L (3.5-5.1)
[2021-03-18] MEDS: ACETAMINOPHEN 325 MG TAB PO PRN ×3 (08:27→17:07)
[2021-03-18] MEDS ORDERED: POTASSIUM CHLORIDE 20MEQ/100ML 200 ML IV ONE (08:45)
[2021-03-18] MEDS ORDERED: ALBUMIN 25% 12.5GM 0.25 GM/ML BTL IV ONE (08:45)
[2021-03-18] MEDS: BACITRACIN ZINC 15 GM OINT TOP SCH (09:00)
[2021-03-18] MEDS: POTASSIUM CHLORIDE 20 MEQ TAB CR PO SCH ×2 (09:00→21:17)
[2021-03-18] MEDS: EYE LUBRICANT OPTH OINT 3.5GM TUBE OP SCH ×2 (09:00→17:08)
[2021-03-18] MEDS: FUROSEMIDE INJ 10 MG/ML 4 ML VIAL IV SCH ×2 (09:50→17:08)
[2021-03-18] MEDS: VANCOMYCIN 250MG/5ML ORAL SOLN PO SCH ×2 (17:08→23:11)
[2021-03-19] VITALS (30 sets, daily range): BP systolic 83–128; BP diastolic 44–69
[2021-03-19] MEDS: PROPOFOL IV EMULSION 10MG/ML 100 ML IV PRN ×7 (02:31→23:20)
[2021-03-19] MEDS: DEXMEDETOMIDINE 400MCG/NS100ML 100 ML IV PRN ×3 (03:01→18:25)
[2021-03-19] MEDS ORDERED: ALBUMIN 25% 25GM 100ML 0.25 GM/ML BTL IV ONE ×2 (03:15→09:30)
[2021-03-19] MEDS ORDERED: ALBUMIN 25% 12.5GM 50ML 100 ML IV ONE (03:26)
[2021-03-19] MEDS ORDERED: NOREPINEPHRINE 8 MG/D5W 250 ML 250 ML ONE (03:46)
[2021-03-19] MEDS: NOREPINEPHRINE 8 MG/D5W 250 ML 250 ML IV SCH ×2 (04:06→04:22)
[2021-03-19] MEDS: MIDAZOLAM HCL 5MG/ML 10ML VIAL 100 ML IV PRN ×2 (04:55→08:49)
[2021-03-19] MEDS: ENOXAPARIN SODIUM INJ 100 MG/ML SYR SC SCH ×2 (05:06→17:23)
[2021-03-19] MEDS: VANCOMYCIN 250MG/5ML ORAL SOLN PO SCH ×4 (05:09→23:32)
[2021-03-19 05:56] LABS: BASOPHILS % 0.2 % (0.0-1.0); EOSINOPHILS # (AUTO) 0.3 (0.0-0.4); EOSINOPHILS % 1.8 % (0.0-6.0); HEMATOCRIT 23.4 % (34.2-44.1); HEMOGLOBIN 7.3 g/dL (12.0-16.0); LYMPHOCYTES # (AUTO) 2.5 (1.0-3.2); LYMPHOCYTES % 14.1 % (18.0-39.1); MEAN CORPUSCULAR HEMOGLOBIN 29.2 pg (28-32); MEAN CORPUSCULAR HGB CONC 31.2 g/dL (31-35); MEAN CORPUSCULAR VOLUME 93.6 fL (81-99); MONOCYTES # (AUTO) 1.3 (0.2-0.8); MONOCYTES % 7.2 % (4.4-11.3); NEUTROPHILS # (AUTO) 13.6 (2.1-6.9); NEUTROPHILS % 75.4 % (38.7-80.0); PLATELET COUNT 417 x10e3/uL (140-360); RED CELL DISTRIBUTION WIDTH 18.9 % (11.7-14.4)
[2021-03-19 06:28] LABS: ALBUMIN 3.2 g/dL (3.5-5.0); ALBUMIN/GLOBULIN RATIO 0.9 (0.8-2.0); ANION GAP 16.1 mmol/L (8-16); CALCIUM 9.4 mg/dL (8.4-10.2); CREATININE, SERUM 0.41 mg/dL (0.57-1.11); POTASSIUM 3.1 mmol/L (3.5-5.1)
[2021-03-19] MEDS: FUROSEMIDE INJ 10 MG/ML 4 ML VIAL IV SCH ×2 (08:15→17:23)
[2021-03-19] MEDS: POTASSIUM CHLORIDE 20 MEQ TAB CR PO SCH ×2 (08:15→20:21)
[2021-03-19 08:22] LABS: ABG HCO3 45 mmol/L (22-26); ABG PCO2 58 mmHg (35-45); ABG PH 7.49 (7.35-7.45); ABG PO2 68 mmHg (80-105); ABG TCO2 46
[2021-03-19] MEDS: EYE LUBRICANT OPTH OINT 3.5GM TUBE OP SCH ×2 (08:45→17:23)
[2021-03-19] MEDS: FENTANYL 2000MCG/NS 250 250 ML IV PRN ×2 (08:50→22:55)
[2021-03-19] MEDS ORDERED: POTASSIUM CHLORIDE 20MEQ/100ML 200 ML IV ONE (10:00)
[2021-03-19] MEDS ORDERED: ALBUMIN 25% 25GM 100ML 100 ML IV ONE (10:45)
[2021-03-19] MEDS: BACITRACIN ZINC 15 GM OINT TOP SCH (11:34)
[2021-03-19] MEDS ORDERED: POTASSIUM CHLORIDE 20 MEQ TAB CR PO SCH (17:00)
[2021-03-19] MEDS: ACETAMINOPHEN 325 MG TAB PO PRN (23:54)
[2021-03-20] VITALS (16 sets, daily range): BP systolic 92–120; BP diastolic 49–63
[2021-03-20] MEDS: DEXMEDETOMIDINE 400MCG/NS100ML 100 ML IV PRN (00:11)
[2021-03-20] MEDS: PROPOFOL IV EMULSION 10MG/ML 100 ML IV PRN ×2 (02:49→10:00)
[2021-03-20] MEDS: VANCOMYCIN 250MG/5ML ORAL SOLN PO SCH (05:26)
[2021-03-20] MEDS: ENOXAPARIN SODIUM INJ 100 MG/ML SYR SC SCH (05:26)
[2021-03-20 06:46] LABS: BASOPHILS # (AUTO) 0.1 (0.0-0.1); BASOPHILS % 0.4 % (0.0-1.0); EOSINOPHILS # (AUTO) 0.7 (0.0-0.4); EOSINOPHILS % 4.3 % (0.0-6.0); HEMATOCRIT 25.4 % (34.2-44.1); HEMOGLOBIN 7.6 g/dL (12.0-16.0); LYMPHOCYTES # (AUTO) 2.4 (1.0-3.2); LYMPHOCYTES % 14.3 % (18.0-39.1); MEAN CORPUSCULAR HEMOGLOBIN 28.4 pg (28-32); MEAN CORPUSCULAR HGB CONC 29.9 g/dL (31-35); MEAN CORPUSCULAR VOLUME 94.8 fL (81-99); MONOCYTES # (AUTO) 1.7 (0.2-0.8); MONOCYTES % 10.4 % (4.4-11.3); NEUTROPHILS # (AUTO) 11.4 (2.1-6.9); NEUTROPHILS % 69.5 % (38.7-80.0); PLATELET COUNT 426 x10e3/uL (140-360); RED BLOOD COUNT 2.68 x10e6/uL (3.6-5.1); RED CELL DISTRIBUTION WIDTH 19.4 % (11.7-14.4)
[2021-03-20 07:09] LABS: ALBUMIN 3.3 g/dL (3.5-5.0); ALBUMIN/GLOBULIN RATIO 0.9 (0.8-2.0); ANION GAP 15.6 mmol/L (8-16); CALCIUM 9.4 mg/dL (8.4-10.2); CREATININE, SERUM 0.36 mg/dL (0.57-1.11); POTASSIUM 3.6 mmol/L (3.5-5.1)
[2021-03-20 08:06] LABS: ABG PH 7.49 (7.35-7.45)
[2021-03-20 08:07] LABS: ABG HCO3 43 mmol/L (22-26); ABG PCO2 56 mmHg (35-45); ABG PO2 84 mmHg (80-105); ABG TCO2 44
[2021-03-20] MEDS ORDERED: DEXMEDETOMIDINE 400MCG/NS100ML 100 ML IV PRN (09:00)
[2021-03-20] MEDS ORDERED: POTASSIUM CHLORIDE 20 MEQ TAB CR PO SCH (09:00)
[2021-03-20] MEDS: POTASSIUM CHLORIDE 20 MEQ TAB CR PO SCH (09:20)
[2021-03-20] MEDS: BACITRACIN ZINC 15 GM OINT TOP SCH (09:20)
[2021-03-20] MEDS: FUROSEMIDE INJ 10 MG/ML 4 ML VIAL IV SCH (09:20)
[2021-03-20] MEDS: EYE LUBRICANT OPTH OINT 3.5GM TUBE OP SCH (09:20)
[2021-03-20] MEDS ORDERED: LORAZEPAM INJ 2 MG/ML VIAL IV PRN (09:30)
[2021-03-20] MEDS ORDERED: POVIDONE IODINE 0.05% 0.05 % ML PO ONE ×2 (11:06→11:09)
[2021-03-20] MEDS ORDERED: PROPOFOL IV EMULSION 10 MG/ML 20 ML VIAL IV ONE (11:06)
[2021-03-20] MEDS ORDERED: LIDOCAINE HCL 2% LOCAL INJ 5 ML SDV VIAL INJ ONE (11:06)
[2021-03-20] MEDS ORDERED: ROCURONIUM BROMIDE 10 MG/ML 5ML VIAL IV ONE ×2 (11:06→11:09)
[2021-03-20] MEDS ORDERED: SEVOFLURANE INHAL SOLN 250 ML PEN BTL INH ONE (11:09)
== END 2021-03-20 11:10 | DRG 4 ==
LOC: ER 13:10 → ERHOLD 14:36 → IMCU 16:43 → ICU 01-18 21:53 → IMCU 01-24 17:03 → COVIDICU 01-29 17:47
PROC: XW033E5 Introduction of Remdesivir Anti-infective into Peripheral Vein, Percutaneous Approach, New Technology Group 5 (ICD-10-PCS; 2021-01-17)
PROC: 02HV33Z Insertion of Infusion Device into Superior Vena Cava, Percutaneous Approach (ICD-10-PCS; 2021-01-18)
PROC: 0BH17EZ Insertion of Endotracheal Airway into Trachea, Via Natural or Artificial Opening (ICD-10-PCS; principal; 2021-01-29)
PROC: 5A1955Z Respiratory Ventilation, Greater than 96 Consecutive Hours (ICD-10-PCS; 2021-01-29)
PROC: 3E043XZ Introduction of Vasopressor into Central Vein, Percutaneous Approach (ICD-10-PCS; 2021-01-29)
PROC: 03HC33Z Insertion of Infusion Device into Left Radial Artery, Percutaneous Approach (ICD-10-PCS; 2021-02-06)
PROC: 02HV33Z Insertion of Infusion Device into Superior Vena Cava, Percutaneous Approach (ICD-10-PCS; 2021-02-11)
PROC: B548ZZA Ultrasonography of Superior Vena Cava, Guidance (ICD-10-PCS; 2021-02-11)
PROC: 30233N1 Transfusion of Nonautologous Red Blood Cells into Peripheral Vein, Percutaneous Approach (ICD-10-PCS; 2021-02-12)
PROC: 03HC33Z Insertion of Infusion Device into Left Radial Artery, Percutaneous Approach (ICD-10-PCS; 2021-02-18)
PROC: 3E0333Z Introduction of Anti-inflammatory into Peripheral Vein, Percutaneous Approach (ICD-10-PCS; 2021-02-18)
PROC: 0W9B00Z Drainage of Left Pleural Cavity with Drainage Device, Open Approach (ICD-10-PCS; 2021-02-23)
PROC: 0W9900Z Drainage of Right Pleural Cavity with Drainage Device, Open Approach (ICD-10-PCS; 2021-02-23)
PROC: 0B110F4 Bypass Trachea to Cutaneous with Tracheostomy Device, Open Approach (ICD-10-PCS; 2021-02-25)
PROC: 0B21XFZ Change Tracheostomy Device in Trachea, External Approach (ICD-10-PCS; 2021-02-25)
PROC: 0W9B00Z Drainage of Left Pleural Cavity with Drainage Device, Open Approach (ICD-10-PCS; 2021-03-02)
PROC: 0W9B30Z Drainage of Left Pleural Cavity with Drainage Device, Percutaneous Approach (ICD-10-PCS; 2021-03-05)
PROC: 02HV33Z Insertion of Infusion Device into Superior Vena Cava, Percutaneous Approach (ICD-10-PCS; 2021-03-05)
PROC: 02HV33Z Insertion of Infusion Device into Superior Vena Cava, Percutaneous Approach (ICD-10-PCS; 2021-03-09)
PROC: B548ZZA Ultrasonography of Superior Vena Cava, Guidance (ICD-10-PCS; 2021-03-09)
PROC: 5A1D70Z Performance of Urinary Filtration, Intermittent, Less than 6 Hours Per Day (ICD-10-PCS; 2021-03-09)
DX: U07.1 COVID-19 (principal); J12.82 Pneumonia due to coronavirus disease 2019; J93.0 Spontaneous tension pneumothorax; J96.01 Acute respiratory failure with hypoxia; A41.89 Other specified sepsis; J15.9 Unspecified bacterial pneumonia; I26.93 Single subsegmental thrombotic pulmonary embolism without acute cor pulmonale; I50.33 Acute on chronic diastolic (congestive) heart failure; J95.03 Malfunction of tracheostomy stoma; E87.3 Alkalosis; I82.B11 Acute embolism and thrombosis of right subclavian vein; I82.A11 Acute embolism and thrombosis of right axillary vein; I82.621 Acute embolism and thrombosis of deep veins of right upper extremity; Z16.12 Extended spectrum beta lactamase (ESBL) resistance; B37.49 Other urogenital candidiasis; J93.82 Other air leak; E87.6 Hypokalemia; E66.9 Obesity, unspecified; Z68.36 Body mass index [BMI] 36.0-36.9, adult; F41.9 Anxiety disorder, unspecified; D64.9 Anemia, unspecified; R00.0 Tachycardia, unspecified; I51.4 Myocarditis, unspecified; D72.821 Monocytosis (symptomatic); I27.21 Secondary pulmonary arterial hypertension; I50.811 Acute right heart failure; E87.70 Fluid overload, unspecified; T78.3XXA Angioneurotic edema, initial encounter; T88.8XXA Other specified complications of surgical and medical care, not elsewhere classified, initial encounter; T36.1X5A Adverse effect of cephalosporins and other beta-lactam antibiotics, initial encounter; D63.8 Anemia in other chronic diseases classified elsewhere; B96.20 Unspecified Escherichia coli [E. coli] as the cause of diseases classified elsewhere
CPT/HCPCS: 36415; 36569; 36600; 70450; 71045; 71260; 74018; 74177; 76700; 76705; 80048; 80053; 80202; 81001; 81025; 82805; 82948; 83735; 84100; 84478; 85014; 85018; 85025; 85379; 86140; 86160; 86162; 86705; 86706; 86850; 86900; 86920; 87040; 87070; 87071; 87086; 87186; 87205; 87340; 90962; 93005; 93306; 93970; 94002; 94003; 96366; 99251; 99284; J0330; J0456; J0692; J1100; J1450; J1644; J1650; J1885; J1940; J2001; J2060; J2185; J2248; J2250; J2270; J2543; J2997; J3370; J3480; J7030; J7050; J7070; J7121; P9016; P9047; Q9967